=== PATIENT | female | born 1955 | race Caucasian/White ===

== ENCOUNTER 2017-02-05 20:31 | Inpatient (IN) | payer BC, OTHER ==
[~2017-02-05] VITALS: Ht 157.5 cm; Wt 63.4 kg
[~2017-02-05 20:31] MED LIST: NO CURRENT MEDS
[2017-02-05] MEDS ORDERED: ASPIRIN 324 MG CHEW PO STA (20:51)
[2017-02-05] MEDS ORDERED: NITROGLYCERIN 0.4 MG SL PER TAB CHARGE SL STA (20:51)
[2017-02-05 21:24] LABS: HEMATOCRIT 43.1 % (37-47); MEAN CELL VOLUME 92.9 fL (80-100); MEAN CORPUSCULAR HEMOGLOBIN 31.7 pg (25-34); MEAN CORPUSCULAR HGB CONC 34.1 g/dl (32-36); PLATELET COUNT 335 K/uL (130-400); RED BLOOD COUNT 4.64 M/uL (4.2-5.4); WHITE BLOOD COUNT 14.47 K/uL (4.8-10.8)
[2017-02-05 21:33] LABS: INR 0.9 (0.9-1.1); PARTIAL THROMBOPLASTIN RATIO 0.9
--- NOTE | 2017-02-05 21:43 | DIAGNOSTIC IMAGING REPORT ---
SINGLE VIEW CHEST CLINICAL HISTORY: Atypical chest pain. FINDINGS: An AP, portable, upright chest radiograph is compared to study dated 09/02/2016. The cardiomediastinal silhouette is unremarkable. The lungs and pleural spaces are clear. No pneumothorax is seen. The bony thorax is grossly intact. IMPRESSION: No active disease in the chest. Electronically signed by: Corbin Lamar M.D. 02/05/2017 9:42 PM Dictated Date/Time: 02/05/2017 9:42 PM
[2017-02-05 22:03] LABS: BUN/CREATININE RATIO 21.7 (10-20); CREATININE 0.76 mg/dl (0.60-1.20); POTASSIUM 3.7 mmol/L (3.5-5.1)
[2017-02-05] MEDS ORDERED: HEPARIN SOD 5000 UNIT/0.5 ML CARP ONE (22:12)
[2017-02-05] MEDS ORDERED: HEPARIN 25000 UNIT/500 ML D5W ONE (22:13)
--- NOTE | 2017-02-05 22:24 | EMERGENCY ROOM VISIT NOTE ---
History Report prepared by Deyanira: Dania Art Under the Supervision of: Dr. Joe Huitron M.D. First contact with patient: 20:45 Chief Complaint: CHEST PAIN Stated Complaint: CHEST PAIN, SHOULDER/NECK/JAW PAIN, LIGHTHEADED Nursing Triage Summary: new onset chest pain worsening tonight that radiates to right arm and right jaw. History of Present Illness The patient is a 61 year old female who presents to the Emergency Room with complaints of intermittent bilateral chest pain that started yesterday. The patient rates her discomfort as an 8-9/10 in severity. She describes the pain as heaviness. She is also experiencing bilateral shoulder pain. The patient is also experiencing fatigue and states that she slept for 3-4 hours this afternoon. She felt well when she woke up from her nap, but when she got up and moved around the pain came back. The patient experiences shortness of breath with the pain, but denies sweating and nausea. She is also experiencing "hot and cold flashes." The patient denies fevers, cough, rhinorrhea. The patient denies any significant medical problems. The patient also denies any family history of heart disease. Source of History: patient Onset: yesterday Position: chest (bilateral) Quality: other (heaviness) Timing: intermittent Associated Symptoms: + SOB, No cough, No fevers, No nausea Note: "hot and cold flashes,"no sweating, no rhinorrhea Review of Systems See HPI for pertinent positives & negatives. A total of 10 systems reviewed and were otherwise negative. Past Medical & Surgical Surgical Problems: (1) History of tubal ligation Family History Cancer Social History Smoking Status: Never Smoker Marital Status: Housing Status: lives with family Current/Historical Medications No Active Prescriptions or Reported Meds Allergies Coded Allergies: No Known Allergies (Verified , 10/27/16) Physical Exam Vital Signs Date Time Temp Pulse Resp B/P Pulse Ox O2 Delivery O2 Flow Rate FiO2 02/05/17 21:17 100 Room Air 02/05/17 20:46 58 02/05/17 20:44 100 Room Air 02/05/17 20:44 100 Room Air 02/05/17 20:44 58 16 164/90 100 Room Air 02/05/17 20:35 36.6 68 16 211/98 100 Room Air Physical Exam Constitutional: Vital signs reviewed and revealed hypertension. Eyes: Pupils are equal round reactive to light. Conjunctiva are noninjected. ENT: Pharynx is clear without erythema or exudate. Mucous membranes are moist. Neck supple without meningeal signs. Respiratory: Clear to auscultation bilaterally. Breath sounds are equal bilaterally. Cardiovascular: Regular rate and rhythm. No rubs or gallops. GI: Soft, nondistended and nontender. Bowel sounds are present. Musculoskeletal: No peripheral edema. No lower extremity tenderness. Integumentary: No cyanosis. Neurological: The patient is awake and alert. No focal deficits. Psychiatric: Normal affect. Medical Decision & Procedures ER Provider Diagnostic Interpretation: X-ray results as stated below per interpretation by me and the radiologist: SINGLE VIEW CHEST IMPRESSION: No active disease in the chest. Electronically signed by: Corbin Lamar M.D. 02/05/2017 9:42 PM Dictated Date/Time: 02/05/2017 9:42 PM Laboratory Results 02/05/17 21:13 Red Blood Count 4.64, Mean Corpuscular Volume 92.9, Mean Corpuscular Hemoglobin 31.7, Mean Corpuscular Hemoglobin Concent 34.1, Mean Platelet Volume 9.0 02/05/17 21:13 Test 02/05/17 21:13 02/05/17 21:24 White Blood Count 14.47 K/uL (4.8-10.8) Red Blood Count 4.64 M/uL (4.2-5.4) Hemoglobin 14.7 g/dL (12.0-16.0) Hematocrit 43.1 % (37-47) Mean Corpuscular Volume 92.9 fL (80-100) Mean Corpuscular Hemoglobin 31.7 pg (25-34) Mean Corpuscular Hemoglobin Concent 34.1 g/dl (32-36) Platelet Count 335 K/uL (130-400) Mean Platelet Volume 9.0 fL (7.4-10.4) RDW Standard Deviation 47.6 fL (36.4-46.3) RDW Coefficient of Variation 14.1 % (11.5-14.5) Nucleated RBC Absolute Count (auto) 0.06 K/uL (0-0) Nucleated Red Blood Cells % 0.4 % Prothrombin Time 10.0 SECONDS (9.0-12.0) Prothromb Time International Ratio 0.9 (0.9-1.1) Activated Partial Thromboplast Time 23.2 SECONDS (21.0-31.0) Partial Thromboplastin Ratio 0.9 Anion Gap 9.0 mmol/L (3-11) Est Creatinine Clear Calc Drug Dose 67.3 ml/min Estimated GFR () 97.4 Estimated GFR (Non- 84.1 BUN/Creatinine Ratio 21.7 (10-20) Calcium Level 9.0 mg/dl (8.5-10.1) Bedside Troponin I 0.190 ng/ml (0-0.045) Laboratory results as reviewed by me. Medications Administered Medications (Trade) Dose Ordered Sig/Forest Route Start Time Stop Time Status Last Admin Dose Admin Aspirin (Aspirin Chew) 324 mg NOW STAT PO 02/05/17 20:51 02/05/17 20:52 DC 02/05/17 20:56 324 MG Nitroglycerin (Nitrostat Tab) 0.4 mg Q5M STAT SL 02/05/17 20:51 02/05/17 20:52 DC 02/05/17 20:56 0.4 MG ECG Indication: chest pain Rate (beats per minute): 59 Rhythm: sinus bradycardia Findings: ST depression (Lateral), T-wave inversion (in aVL), no ectopy Comparison ECG Date: no prior available Change: Repeat EKG on 02/05/2017 showed a normal sinus rhythm, rate of 63, no ectopy, persistent ST depressions in the lateral leads, no ST elevations ED Course 2046: The patient was evaluated in room C7. A complete history and physical exam was performed. 2050: Ordered Nitroglycerin 0.4 mg SL, Aspirin 324 mg PO 2133: I reassessed the patient. Her chest pain is down to a 3 after receiving one nitro. 2138: The patient's nurse informed me that the patient's troponin is 0.19. 2148: I reassessed the patient and discussed the risks and benefits of heparin. The patient's pain is almost completely gone with the second nitro. 2149: Ordered Heparin Sodium/Dextrose 1 ea IV 8: I spoke with Dr. Rodriguez of [facility] Service. He did assess the patient and will start patient on nitro paste as she is stating that she has 1 out of 10 discomfort mostly in her shoulder. The heparin drip was started. Further care per Dr. Ko. Medical Decision This is a 61-year-old female presents with chest pain. Differential diagnosis includes unstable angina, AL, pleurisy, GERD, pneumonia. I did perform a limited focused review of portions of the patient's old chart on the electronic medical record. The patient has had no recent pertinent visits to this hospital. I did evaluate the patient as noted above. The patient is presenting with chest discomfort which she describes as a heaviness in the middle of her chest. She also complains of shortness of breath and weakness. She has no known cardiac history or family history of cardiac disease. IV access was established. The patient was placed on a continuous security monitor. I did order and personally review the patient's 12-lead EKG and chest x-ray as described above.Her EKG demonstrates ST depressions laterally. I did treat her with aspirin and nitroglycerin sublingual 2. Her chest pain was significantly improved with the Nitroglycerin. A second 12-lead EKG was obtained as described above. No significant change from the first one. I did order and review the patient's blood work as noted in the electronic medical record. Troponin is slightly elevated. I did recommend anticoagulation with IV heparin. I did discuss risks and benefits with the patient. I did start an IV heparin drip with bolus. I did discuss the case with Dr. Ko and the manager case. Consults Time Called: 2143 Consulting Physician: Dr. Rodriguez - [facility] [place] Returned Call: [phone] Impression Primary Impression: Acute coronary syndrome Additional Impression: Elevated troponin Critical Care I have personally spent 35 minutes of critical care time in the direct management of this patient. This includes bedside care, interpretation of diagnostic studies, and testing, discussion with consultants, patient, and family members, and other required patient management activities. This 35 minutes is in excess of all separately billable procedures. Scribe Attestation The scribe's documentation has been prepared under my direct and personally reviewed by me in its entirety. I confirm that the note above accurately reflects all work, treatment, procedures, and medical decision making performed by me. Departure Information Dispostion Being Evaluated By Hospitalist Prescriptions No Active Prescriptions or Reported Meds Referrals Jazz Garcia M.D. (PCP) Patient Instructions My [facility] Problem Qualifiers
[2017-02-05] MEDS ORDERED: NITROGLYCERIN OINT 2% 1GM PACKET ONE (22:25)
[2017-02-05 22:28] LABS: BASO % 0.2 %; BASO ABS # 0.03 K/uL (0-0.2); COMPLETE YES; EOS % 0.6 %; IG% 0.3 %; MONO % 4.1 %; NEUT % 47.8 %; SMUDGE CELLS PRESENT
[2017-02-05] MEDS ORDERED: MoRPHine SULFATE 2 MG/ML CARP IV PRN (22:30)
[2017-02-05] MEDS ORDERED: ACETAMINOPHEN 325 MG TAB PO PRN (22:30)
[2017-02-05] MEDS ORDERED: MAGNESIUM HYDROXIDE SUSP 30 ML UDC PO PRN (22:30)
[2017-02-05] MEDS ORDERED: ONDANSETRON INJ 2 MG/ML 2 ML VIAL IV PRN (22:30)
[2017-02-05] MEDS ORDERED: ALUMINUM/MAGNESIUM/SIMETH (MAALOX MAX) 30 ML UDC PO PRN (22:30)
[2017-02-05] MEDS ORDERED: NITROGLYCERIN 0.4 MG SL PER TAB CHARGE SL PRN (22:30)
--- NOTE | 2017-02-05 22:40 | History and Physical ---
History & Physical Date & Time of Service: Feb 05, 2017 at 22:26 Chief Complaint: Chest Pain, Shoulder/Neck/Jaw Pain, Lightheaded Primary Care Physician: Jazz Garcia M.D. History of Present Illness Source: patient, spouse This is a 61-year-old female who presents with chest pain which started 30 hours ago. She does not have a when she had a similar episode of chest pain, but was found to have a duodenal ulcer, she denies which she denies surgery for previous cardiac history. She reports yesterday afternoon while she was sitting down, at rest, she noticed a sudden onset, sharp pain to the left side of her chest which radiated up both sides of her jaw, and also to her back and both shoulders. She went to sleep and thought it became somewhat better She woke up overnight, and the pain had returned. She was slightly nauseated as well at that time. She tried to wait out the pain, but then this afternoon it was an 8 out of 10 in severity, so she came into the ED. She received Nitropaste and this brought it down to a 3 out of 10. Currently her pain is still about a 3. She is a nonsmoker, does not have diabetes, does not have a family history of cardiac disease. She does not take any regular medications. Her last hospital admission was 4 years ago was found to have a ruptured duodenal ulcer, did not have surgery for this. At that time she had presented with a similar chest pain but reports it was due to the ulcer. Past Medical/Surgical History PMHx: Ruptured duodenal ulcer PSHx: None Family History Cancer No cardiac family history, apart from her 95 yo mother who now has hypertension. Social History Smoking Status: Never Smoker Smokeless Tobacco Use: No Alcohol Use: socially Drug Use: none Marital Status: Housing status: lives with family Occupational Status: employed Immunizations History of Influenza Vaccine: No History of Tetanus Vaccine?: Yes History of Pneumococcal: No History of Hepatitis B Vaccine: No Allergies Coded Allergies: No Known Allergies (Verified , 10/27/16) Home Medications No Active Prescriptions or Reported Meds Review of Systems Constitutional: + weakness, No chills, No fever, No sweats, No weight loss Eyes: No eye pain, No worsening of vision ENT: No hearing loss, No nasal symptoms, No sore throat Respiratory: No cough, No dyspnea at rest, No dyspnea on exertion, No shortness of breath, No wheezing Cardiovascular: + problem reported Abdomen: + nausea, No constipation, No diarrhea, No pain, No vomiting Musculoskeletal: No calf pain, No joint pain, No muscle pain, No swelling Genitourinary - Female: No dysuria, No urinary frequency, No urinary urgency Neurologic: No memory loss, No paralysis, No weakness Psychiatric: No anhedonism, No anxiety, No depression symptoms Endocrine: No excessive thirst, No fatigue Hematologic / Lymphatic: No abnormal bleeding/bruising Integumentary: No bleeding, No itch, No rash Physical Exam Vital Signs Date Time Temp Pulse Resp B/P Pulse Ox O2 Delivery O2 Flow Rate FiO2 02/05/17 21:17 100 Room Air 02/05/17 20:46 58 02/05/17 20:44 100 Room Air 02/05/17 20:44 100 Room Air 02/05/17 20:44 58 16 164/90 100 Room Air 02/05/17 20:35 36.6 68 16 211/98 100 Room Air GENERAL: Awake, alert, well-appearing, in no acute distress HENT: Normocephalic, atraumatic. Oropharynx unremarkable. EYES: Normal conjunctiva. Sclera non-icteric. NECK: Supple. No nuchal rigidity. FROM. No JVD. RESPIRATORY: Clear to auscultation. No wheeze, crackles, rhonchi. CARDIAC: Regular rate, normal rhythm. No murmurs audible. Extremities warm and well perfused. Pulses equal. ABDOMEN: Soft, non-distended. No tenderness to palpation. No rebound or guarding. No masses. MUSCULOSKELETAL: Chest examination reveals no tenderness. The back is symmetrical on inspection without obvious abnormality. There is no CVA tenderness to palpation. No joint edema. LOWER EXTREMITIES: Calves are equal size bilaterally and non-tender. No edema. No discoloration. NEURO: Normal sensorium. No sensory or motor deficits noted. SKIN: No rash or jaundice noted. Diagnostics Laboratory Results Results Past 24 Hours Test 02/05/17 21:13 02/05/17 21:24 Range/Units White Blood Count 14.47 4.8-10.8 K/uL Red Blood Count 4.64 4.2-5.4 M/uL Hemoglobin 14.7 12.0-16.0 g/dL Hematocrit 43.1 37-47 % Mean Corpuscular Volume 92.9 80-100 fL Mean Corpuscular Hemoglobin 31.7 25-34 pg Mean Corpuscular Hemoglobin Concent 34.1 32-36 g/dl Platelet Count 335 130-400 K/uL Mean Platelet Volume 9.0 7.4-10.4 fL RDW Standard Deviation 47.6 36.4-46.3 fL RDW Coefficient of Variation 14.1 11.5-14.5 % Nucleated RBC Absolute Count (auto) 0.06 0-0 K/uL Nucleated Red Blood Cells % 0.4 % Prothrombin Time 10.0 9.0-12.0 SECONDS Prothromb Time International Ratio 0.9 0.9-1.1 Activated Partial Thromboplast Time 23.2 21.0-31.0 SECONDS Partial Thromboplastin Ratio 0.9 Sodium Level 140 136-145 mmol/L Potassium Level 3.7 3.5-5.1 mmol/L Chloride Level 104 98-107 mmol/L Carbon Dioxide Level 27 21-32 mmol/L Anion Gap 9.0 3-11 mmol/L Blood Urea Nitrogen 17 7-18 mg/dl Creatinine 0.76 0.60-1.20 mg/dl Est Creatinine Clear Calc Drug Dose 67.3 ml/min Estimated GFR () 97.4 Estimated GFR (Non- 84.1 BUN/Creatinine Ratio 21.7 10-20 Random Glucose 121 70-99 mg/dl Calcium Level 9.0 8.5-10.1 mg/dl Bedside Troponin I 0.190 0-0.045 ng/ml Diagnostic Radiology SINGLE VIEW CHEST CLINICAL HISTORY: Atypical chest pain. FINDINGS: An AP, portable, upright chest radiograph is compared to study dated 09/02/2016. The cardiomediastinal silhouette is unremarkable. The lungs and pleural spaces are clear. No pneumothorax is seen. The bony thorax is grossly intact. IMPRESSION: No active disease in the chest. EKG Initial EK bpm, lateral lead ST depression, no ST elevation, T wave inversions. Repeat EK bpm, persistent ST depression No prior EKG available Impression Assessment and Plan 61 year old female presenting with chest pain of about 30 hours duration, with EKG changes and mild troponin elevation. This is likely cardiac as she had improvement with Nitropaste. NSTEMI Trend cardiac enzymes q6h Nitropaste as needed, Morphine also available Continue heparin drip (started in ED) Repeat EKG if chest pain changes Continue aspirin 81mg daily Will start beta tashi once heart rate slightly improves Secondary prevention of cardiac disease Will check HbA1c and lipid profile Continue aspirin Code status: FULL Dispo: Telemetry VTE: Heparin drip VTE Prophylaxis VTE Risk Assessment Done? Y/N: Yes Risk Level: Low Resident Tracking Resident Involvement: Resident Care Provided Care Provided: [facility] Assessment and Plan Attending Addendum: I have physically seen and examined this patient, have directed their medical care, have supervised the medical residents activities, and agree with the H&P as noted above, with the following changes: NONE ex The patient is awake, well-developed and adequately nourished, alert and oriented 3, normocephalic and atraumatic, lying in bed and in no acute distress. HEENT--PERRL, EOMI, mucous membranes and oropharynx dry. Neck--supple, no JVD or bruits, thyroid normal, trachea midline, no adenopathy. Heart--normal S1 and S2, no extra beats, no murmurs, rubs or gallops. Lungs--clear bilaterally with good air movement, no respiratory distress, no accessory muscle use. Abdomen--normal bowel sounds and soft, nontender and nondistended, no hernias or masses, no organomegaly. Extremities--no cyanosis, clubbing or edema. There are good distal pulses b/l. Dermatologic--normal skin turgor, normal color, warm and dry, no abnormal lymph nodes, no rash. Neurologic--cranial nerves II through XII grossly intact, motor and sensory examination normal. Rheumatologic--normal range of motion, nontender, muscles and joints. Psychiatric--normal affect. Assessment and Plan: Acute coronary syndrome--the patient has reversible EKG changes suggesting ischemia. She will be admitted to the telemetry unit for serial cardiac enzymes , cardiac rhythm monitoring and a 2-D echocardiogram with Dopplers. She has already received aspirin, will be placed on Nitropaste 1 inch to the anterior chest wall every 6 hours, heparin drip per weight-based protocol, and normal saline with potassium chloride 20 mEq 100 mils per hour. Consult cardiology as patient will most probably need a cardiac catheterization. Lymphocytic leukocytosis--patient does not have any signs of active infection. We will order viral serologies to assess for possible myocarditis. We'll order a peripheral smear review by pathology. Would be concerned about the possibility of CLL. If smear is abnormal, would order a leukemia/lymphoma profile.
[2017-02-05 23:20] VITALS: BP 119/72; PULSE 69; TEMP 36.9; O2SAT 98
[2017-02-05 23:24] VITALS: BP 119/72; PULSE 69; TEMP 36.9; O2SAT 98; Ht 157.5 cm; Wt 63.4 kg
[2017-02-05] MEDS ORDERED: HEPARIN 25,000 UNIT/500ML D5W 500 ML IV PRN (23:45)
[2017-02-06] VITALS (24 sets, daily range): BP systolic 100–131; BP diastolic 61–81; PULSE 57–74; TEMP 36.5–37.5; O2SAT 93–98
[2017-02-06 00:53] LABS: CKMB/CK RATIO 2.6 (0-3.0)
[2017-02-06] MEDS: NITROGLYCERIN OINT 2% 1GM PACKET EXT SCH ×4 (01:06→17:29)
[2017-02-06] MEDS: NSS + 20MEQ KCL 1000ML 1,000 ML IV SCH ×3 (01:22→23:52)
[2017-02-06 04:35] LABS: HEMATOCRIT 35.7 % (37-47); MEAN CELL VOLUME 92.2 fL (80-100); MEAN CORPUSCULAR HEMOGLOBIN 31.8 pg (25-34); MEAN CORPUSCULAR HGB CONC 34.5 g/dl (32-36); PLATELET COUNT 285 K/uL (130-400); RED BLOOD COUNT 3.87 M/uL (4.2-5.4); WHITE BLOOD COUNT 15.29 K/uL (4.8-10.8)
[2017-02-06 04:52] LABS: BUN/CREATININE RATIO 23.1 (10-20); CALCIUM 7.7 mg/dl (8.5-10.1); CREATININE 0.58 mg/dl (0.60-1.20)
[2017-02-06 04:59] LABS: ALB/GLOB RATIO 0.9 (0.9-2); CHOLESTEROL/HDL RATIO 3.7; CKMB/CK RATIO 5.5 (0-3.0)
[2017-02-06 07:08] LABS: ESTIMATED AVERAGE GLUCOSE 131 mg/dl; HA1C FLAG Normal (Normal)
[2017-02-06] MEDS ORDERED: ASPIRIN 81 MG ECTAB PO SCH (09:00)
[2017-02-06 09:13] LABS: BASO % 0.2 %; BASO ABS # 0.03 K/uL (0-0.2); COMPLETE YES; EOS % 0.3 %; IG% 0.2 %; LYMPH % 52.8 %; LYMPH ABS # 8.07 K/uL (1.2-3.4); MONO % 4.7 %; NEUT % 41.8 %; SMUDGE CELLS PRESENT
--- NOTE | 2017-02-06 09:25 | ECHOCARDIOGRAM REPORT ---
*NOTICE TO RECEIVING CONSTITUTION PARTY AGENCY This information is strictly Confidential and protected under [place] law. [place] law prohibits you from making any further disclosure of this information unless further disclosure is expressly permitted by the written consent of the person to whom it pertains or is authorized by law. A general authorization for the release of medical or other information is not sufficient for this purpose. Hospital accepts no responsibility if the information is made available to any other person, INCLUDING THE PATIENT. Interpretation Summary * Name: CHANTEL ISRAEL Study Date: 02/06/2017 07:10 AM BP: 110/65 mmHg * Patient Location: C.2T\S\S239\S\2 HR: 58 * : 1955 (M/d/yyyy) Gender: Female Height: 62 in * Age: 61 yrs Ethnicity: CA Weight: 140 lb * Ordering Physician: Deneen Laboy * Referring Physician: Self, Referred * Performed By: Zoe Leon RDCS * * Reason For Study: NSTEMI * BSA: 1.6 m2 * History: NSTEMI * -- Conclusions -- * 1. Normal left ventricular size and systolic function. EF 55-60%. Mid inferolateral wall appears hypokinetic. No left ventricular hypertrophy. No significant diastolic dysfunction. * 2. Mild mitral regurgitation. * 3. Normal estimated right ventricular systolic pressure. * 4. No prior study available for comparison. Procedure Details * A complete two-dimensional transthoracic echocardiogram was performed (2D, M-mode, Doppler and color flow Doppler). Left Ventricle * Normal left ventricular size and systolic function. EF 55-60%. Mid inferolateral wall appears hypokinetic. No left ventricular hypertrophy. No significant diastolic dysfunction. Right Ventricle * The right ventricle is normal in size and function. * The right ventricular systolic function is normal as assessed by tricuspid annular plane systolic excursion (TAPSE) (normal >1.5 cm). Atria * The left atrial size is normal. * Right atrial size is normal. * There is no evidence of atrial septal defect, but resolution does not allow assessment for a patent foramen ovale. Mitral Valve * The mitral valve leaflets appear normal. There is no evidence of stenosis, fluttering, or prolapse. * There is no mitral valve stenosis. * There is mild mitral regurgitation. Tricuspid Valve * The tricuspid valve is normal in structure and function. * There is no tricuspid stenosis. * There is trace tricuspid regurgitation. Aortic Valve * The aortic valve is normal in structure and function. * No hemodynamically significant valvular aortic stenosis. * No aortic regurgitation is present. Pulmonic Valve * The pulmonary valve is inadequately visualized, but the Doppler data is adequate for interpretation. * There is no pulmonic valvular stenosis. * Trace pulmonic valvular regurgitation. Great Vessels * The aortic root is normal size. * Ascending aorta of normal dimension Pericardium/Pleural * There is no pericardial effusion. Great Vessels * Normal inferior vena cava size and collapsability with sniff indicates a normal right atrial pressure of 3 mmHg MMode 2D Measurements and Calculations IVSd 0.86 cm IVSs 1.2 cm LVIDd 4.1 cm LVIDs 2.7 cm LVPWd 0.92 cm LVPWs 1.3 cm IVS/LVPW 0.93 FS 35.4 % EDV(Teich) 76.2 ml ESV(Teich) 26.5 ml EF(Teich) 65.2 % EDV(cubed) 71.3 ml ESV(cubed) 19.2 ml EF(cubed) 73.0 % % IVS thick 40.1 % % LVPW thick 43.8 % LV mass(C)d 113.9 grams LV mass(C)dI 69.3 grams/m\S\2 LV mass(C)s 101.4 grams LV mass(C)sI 61.7 grams/m\S\2 SV(Teich) 49.7 ml SI(Teich) 30.3 ml/m\S\2 SV(cubed) 52.1 ml SI(cubed) 31.7 ml/m\S\2 Ao root diam 3.2 cm Ao root area 8.2 cm\S\2 LA dimension 3.3 cm asc Aorta Diam 2.6 cm LA/Ao 1.0 LVAd ap4 27.1 cm\S\2 LVLd ap4 7.4 cm EDV(MOD-sp4) 84.0 ml EDV(sp4-el) 84.8 ml LVAs ap4 16.6 cm\S\2 LVLs ap4 6.5 cm ESV(MOD-sp4) 35.4 ml ESV(sp4-el) 35.9 ml EF(MOD-sp4) 57.9 % EF(sp4-el) 57.6 % SV(MOD-sp4) 48.6 ml SI(MOD-sp4) 29.6 ml/m\S\2 SV(sp4-el) 48.9 ml SI(sp4-el) 29.7 ml/m\S\2 Doppler Measurements and Calculations MV E max radha 98.1 cm/sec MV A max radha 80.9 cm/sec MV E/A 1.2 MV dec time 0.22 sec Ao V2 max 123.4 cm/sec Ao max PG 6.1 mmHg Ao max PG (full) 3.7 mmHg LV V1 max PG 2.4 mmHg LV V1 max 77.1 cm/sec TV E max radha 49.1 cm/sec TR max radha 169.5 cm/sec RVSP(TR) 14.5 mmHg RAP systole 3.0 mmHg
--- NOTE | 2017-02-06 09:31 | Cardiology Consultation ---
Cardiology Consultation Date of Consultation: Feb 06, 2017. Attending Physician: Dr. Marjorie James Reason for Consultation: Elevated troponin Pt evaluation today including: conversation w/ patient, physical exam, chart review, lab review History of Present Illness Patient has had some twinges of chest pain and fatigue through out the last week. On Monday morning, she had been asymptomatic while doing her laundry in the morning. Later in the afternoon, some chest pain became prominent but did diminish with time, although it did not completely resolve. However, on Monday, while patient was sitting at rest, she noticed a sudden onset of sharp pain on the left side which spread across her chest, and radiated to her shoulders bilaterally and up both sides of her neck. She also felt pain at her mid back. The pain was worse upon lying supine and on deep inspiration. It was improved while sitting or standing up, but again worse during ambulation. It was not impacted by food intake. The pain was described as pressure and burning and was associated with nausea, but not emesis. Additionally the patient says she experienced some hot flashes with intermittent chills, but no diaphoresis. She described the pain as progressing to 8 out of 10 in severity over the duration of a couple of hours, before asking her to bring her to the ED. In the ED, she received aspirin and NGT x2 which brought the pain to 5 out of 10. Morphine was required to really help control to the pain as it brought it down to 1 out of 10, which is what she describes her chest pain as currently. The patient denies recent URI or flu symptoms, but states that her throat was sore on Monday. At baseline, patient is healthy and active. Able to ambulate independently and take stairs without exertional symptoms. Describes minimal orthostatic symptoms. No palpitations or syncope. No PND or orthopnea She is a nonsmoker, does not have diabetes, she does not take any regular medications. Her last hospital admission was 4 years ago when she had similar symptoms but was found to have a ruptured duodenal ulcer- she did not have surgery for this, but recovered with bowel rest with TPN through PICC line x 1 month. Family History Cancer As per patient family cardiac history significant only for HTN in mother, who also required stent in neck Social History Smoking Status: Never Smoker History of Alcohol Use: No Review of Systems Constitutional: No chills, No fever, No weakness Cardiac: + chest pain, No PND, No edema, No palpitations Abdomen: + pain, No GI bleeding, No nausea, No vomiting Female : No dysuria, No hematuria Heme: No abnormal bleeding/bruising Skin: No itch, No rash Allergies Coded Allergies: No Known Allergies (Verified , 10/27/16) Medications Current Inpatient Medications Medications (Trade) Dose Ordered Sig/Forest Route Start Time Stop Time Status Last Admin Dose Admin Acetaminophen (Tylenol Tab) 650 mg Q4H PRN PO 02/05/17 22:30 03/07/17 22:29 Al Hydrox/Mg Hydrox/Simethicone (Maalox Max Susp) 15 ml Q4H PRN PO 02/05/17 22:30 03/07/17 22:29 Magnesium Hydroxide (Milk Of Magnesia Susp) 30 ml Q12H PRN PO 02/05/17 22:30 03/07/17 22:29 Ondansetron HCl (Zofran Inj) 4 mg Q6H PRN IV 02/05/17 22:30 03/07/17 22:29 Nitroglycerin (Nitrostat Tab) 0.4 mg UD PRN SL 02/05/17 22:30 03/07/17 22:29 Nitroglycerin (Nitroglycerin 2% Oint) 1 inch Q6 EXT 02/06/17 00:00 03/08/17 00:00 02/06/17 06:02 1 INCH Morphine Sulfate (MoRPHine SULFATE INJ) 2 mg Q30M PRN IV 02/05/17 22:30 02/19/17 22:29 02/05/17 22:36 2 MG Aspirin 81 mg 81 mg QAM PO 02/06/17 09:00 03/08/17 08:59 02/06/17 07:59 81 MG Heparin Sodium/ Dextrose 500 ml @ 20 mls/hr Q24H PRN IV 02/05/17 23:45 03/07/17 23:44 02/05/17 23:57 20 MLS/HR Potassium Chloride/Sodium Chloride (Nss + 20meq KCl 1000ml) 1,000 ml @ 100 mls/hr Q10H IV 02/06/17 01:00 03/08/17 00:59 02/06/17 01:22 100 MLS/HR Physical Exam Vital Signs Past 12 Hours Date Time Temp Pulse Resp B/P Pulse Ox O2 Delivery O2 Flow Rate FiO2 02/06/17 07:30 36.6 58 20 110/65 97 Room Air 02/06/17 04:00 98 Room Air 02/06/17 02:39 36.6 57 16 104/63 97 Room Air 02/05/17 23:24 36.9 69 16 119/72 98 Room Air 02/05/17 23:20 36.9 69 14 119/72 98 Room Air 02/05/17 23:20 98 Room Air 02/05/17 22:55 58 16 99 02/05/17 22:39 58 16 127/67 99 Room Air 02/05/17 21:17 100 Room Air Constitutional: General Apperance: heathly-appearing, well-nourished, well-developed Level of Distress: NAD Head: normocephalic, atraumatic ENMT: pharynx normal Neck: supple, trachea midline Lungs: Respiratory effort: no dyspnea, good air movement Auscultation: breath sounds normal, CTA except as noted, no wheezing, no rales/crackles, no rhonchi Cardiovascular: Apical Impulse: not displaced Heart Auscultation: RRR, normal S1, normal S2 Peripheral Pulses: Bruits: none appreciated Carotid Pulse: normal on the left, normal on the right Radial Pulse: normal on the right Femoral Pulse: normal on the left, normal on the right Dorsalis Pedis Pulse: normal on the left, normal on the right Extremities: no cyanosis, no edema, no varicosities, no clubbing, no ulcers Neurologic: Cranial Nerves: grossly intact Sensation: grossly intact Data Laboratory Results: Last 24 Hours Test 02/05/17 21:13 02/05/17 21:20 02/05/17 21:24 02/06/17 04:25 White Blood Count 14.47 K/uL 15.29 K/uL Red Blood Count 4.64 M/uL 3.87 M/uL Hemoglobin 14.7 g/dL 12.3 g/dL Hematocrit 43.1 % 35.7 % Mean Corpuscular Volume 92.9 fL 92.2 fL Mean Corpuscular Hemoglobin 31.7 pg 31.8 pg Mean Corpuscular Hemoglobin Concent 34.1 g/dl 34.5 g/dl Platelet Count 335 K/uL 285 K/uL Mean Platelet Volume 9.0 fL 9.0 fL Neutrophils (%) (Auto) 47.8 % Lymphocytes (%) (Auto) 47.0 % Monocytes (%) (Auto) 4.1 % Eosinophils (%) (Auto) 0.6 % Basophils (%) (Auto) 0.2 % Neutrophils # (Auto) 6.92 K/uL Lymphocytes # (Auto) 6.80 K/uL Monocytes # (Auto) 0.60 K/uL Eosinophils # (Auto) 0.08 K/uL Basophils # (Auto) 0.03 K/uL RDW Standard Deviation 47.6 fL 47.3 fL RDW Coefficient of Variation 14.1 % 14.2 % Immature Granulocyte % (Auto) 0.3 % Immature Granulocyte # (Auto) 0.04 K/uL Nucleated RBC Absolute Count (auto) 0.06 K/uL Nucleated Red Blood Cells % 0.4 % Smudge Cells PRESENT Prothrombin Time 10.0 SECONDS Prothromb Time International Ratio 0.9 Activated Partial Thromboplast Time 23.2 SECONDS 53.0 SECONDS Partial Thromboplastin Ratio 0.9 2.0 Sodium Level 140 mmol/L 143 mmol/L Potassium Level 3.7 mmol/L 4.0 mmol/L Chloride Level 104 mmol/L 110 mmol/L Carbon Dioxide Level 27 mmol/L 24 mmol/L Anion Gap 9.0 mmol/L 9.0 mmol/L Blood Urea Nitrogen 17 mg/dl 13 mg/dl Creatinine 0.76 mg/dl 0.58 mg/dl Est Creatinine Clear Calc Drug Dose 67.3 ml/min 87.6 ml/min Estimated GFR () 97.4 114.5 Estimated GFR (Non- 84.1 98.8 BUN/Creatinine Ratio 21.7 23.1 Random Glucose 121 mg/dl 111 mg/dl Estimated Average Glucose 131 mg/dl Hemoglobin A1c 6.2 % Calcium Level 9.0 mg/dl 7.7 mg/dl Total Creatine Kinase 117 U/L 132 U/L Creatine Kinase MB 3.1 ng/ml 7.3 ng/ml Creatine Kinase MB Ratio 2.6 5.5 Troponin I 0.320 ng/ml 1.090 ng/ml Bedside Troponin I 0.190 ng/ml Total Bilirubin 0.3 mg/dl Aspartate Amino Transf (AST/SGOT) 23 U/L Alanine Aminotransferase (ALT/SGPT) 27 U/L Alkaline Phosphatase 57 U/L Total Protein 6.2 gm/dl Albumin 3.0 gm/dl Globulin 3.2 gm/dl Albumin/Globulin Ratio 0.9 Triglycerides Level 127 mg/dl Cholesterol Level 213 mg/dl HDL Cholesterol 58 mg/dl LDL Cholesterol, Calculated 130 mg/dl VLDL Cholesterol, Calculated 25 mg/dl Cholesterol/HDL Ratio 3.7 Imaging: EKG: Telemetry reviewed: Assessment & Plan 61 year old female with no significant cardiac risk factors presents to hospital with fluctuating chest pain for over 24 hours and elevated troponin. EKG shows 1mm ST depression in anterolateral leads and hypokinetic inferolateral wall motion on echo. Concern for NSTEMI vs. melissa/pericarditis. Patient consented for cardiac catheterization to assess for coronary vessel occlusion. The patient was seen and examined by me in the presence of . Assessment and plan and recommendations made in conjunction with . Admitted with prolonged episode of chest pain. Radiation to both shoulders, neck, and midscapular region. Improvement with sublingual nitroglycerin. No prior history of heart disease. No history of diabetes mellitus, hypertension, cigarette smoking, or family history of premature coronary artery disease. She has a good HDL. However, LDL is elevated. She was admitted with prolonged chest discomfort. Troponin I elevated. Electrocardiogram with inferior and anterolateral ST segment depressions suggestive of ischemia. This when she had a 4 beat run of nonsustained ventricular tachycardia. History, medications , family history, social history, allergies, and review of systems as above. Her exam by me was normal. No jugular venous distention. Normal carotid pulses. No carotid bruits. Lungs clear to auscultation. Heart with regular rate and rhythm. S1-S2 normal. No S3 or S4. No murmur rub. Abdomen soft. Nontender. No palpable masses organomegaly. No bruits. Extremities: No pretibial edema. No cyanosis or clubbing. Distal pulses all extremities palpable. Because of her chest discomfort very consistent with myocardial ischemia, abnormal electrocardiogram, an abnormal echocardiogram cardiac catheterization was recommended to the patient. The procedure, risks, benefits, alternatives of cardiac catheterization and percutaneous coronary intervention were extensively discussed with the patient. She consented to have the procedure performed. Thereafter she was brought to the cardiac catheterization lab. Arterial access was 1st attempted in the right radial artery and then the right ulnar artery. These attempts were unsuccessful. A 6 Faroese sheath was inserted in the right femoral artery. Coronary angiography revealed no significant coronary calcifications. Right dominant circulation. The major left circumflex marginal branch had a 95-99% subtotal proximal stenosis. KATRINA 3 flow in the vessel. Mild - atherosclerotic disease in the right coronary artery and mild- to-moderate disease in the LAD. LV angiography with inferior hypokinesis in the right anterior oblique projection. Posterolateral hypokinesis in the RICKY projection. PTCA was then performed to the left circumflex marginal stenosis. This was with a 2.5 x 10 mm balloon. A 3 x 18 mm resolute drug-eluting stent was then deployed in the proximal segment of the marginal. Two balloon inflations performed. Second balloon inflation up to rated burst pressure. Residual stenosis 0-10%. No dissection, thrombus, perforation, or distal embolic event. KATRINA 3 flow in the vessel following intervention. FFR was then performed of the LAD. Adenosine was administered intravenously at 180 micrograms/kilogram per minute. Was administered for 2 minutes. The FFR was 0.87. This is not physiologically significant. Hemostasis was then obtained the right femoral catheterization site with deployment of a 6 Faroese StarClose vascular closure device. At the completion of procedure the patient was without complaints of any chest pain. No groin pain. She was hemodynamically stable. No evidence of any coronary, cardiac, or vascular complications. At the completion of procedure she was given 600 mg of oral clopidogrel. Plan recommendations: 1. Intravenous Integrilin for 18 hours. 2. Repeat electrocardiogram and cardiac enzymes later today and in a.m.. 3. Aspirin and clopidogrel for 1 year. Aspirin therapy indefinitely. 4. Will start low-dose beta-tashi, low-dose LAYA inhibitor therapy. Titrate upwards as tolerated by blood pressure and heart rate. 5. Atorvastatin 80 mg today and then daily. 6. Post PCI CBC and metabolic profile. Addendum: I was notified on the evening of February 06 that the patient had some oozing of blood in her right femoral catheterization site. The nursing staff had applied pressure. When I examined the patient there is no evidence of any active bleeding. Her new dressing was dry. No evidence of bleeding. She had no evidence of hematoma or swelling at the right femoral catheterization site. No bruit over the right femoral artery. Distal pulses strongly palpable. Suspect that the patient had bleeding from the tract made from the skin to the femoral artery itself. Do not suspect that there was actual arterial bleeding from the femoral artery.
[2017-02-06] MEDS ORDERED: NiCARDipine HCL INJ 2.5 MG/ML 10 ML AMP ONE (10:25)
[2017-02-06] MEDS ORDERED: HEPARIN SOD (PORCINE) 1000 UNIT/ML 10 ML VIAL ONE (10:25)
[2017-02-06] MEDS ORDERED: MIDAZOLAM HCL 1 MG/ML 2ML VIAL ONE ×2 (10:25→12:14)
[2017-02-06] MEDS ORDERED: NITROGLYCERIN/D5W 100MCG/ML 20ML SYR ONE (10:26)
[2017-02-06] MEDS ORDERED: FENTANYL CITRATE INJ 50 MCG/1 ML 2 ML VIAL ONE ×2 (10:26→13:43)
--- NOTE | 2017-02-06 10:49 | Procedure Note ---
Pre-Mod Sedation Assessment General Date of Moderate Sedation: Feb 06, 2017. Vital Signs: Vital Signs Past 12 Hours Date Time Temp Pulse Resp B/P Pulse Ox O2 Delivery O2 Flow Rate FiO2 02/06/17 07:30 36.6 58 20 110/65 97 Room Air 02/06/17 04:00 98 Room Air 02/06/17 02:39 36.6 57 16 104/63 97 Room Air 02/05/17 23:24 36.9 69 16 119/72 98 Room Air 02/05/17 23:20 36.9 69 14 119/72 98 Room Air 02/05/17 23:20 98 Room Air 02/05/17 22:55 58 16 99 Review Cardiovascular: regular rate, rhythm, no edema, no gallop, no JVD, no murmur, normal peripheral pulses Abdomen: normal bowel sounds, non tender, soft Lungs: lungs clear Pre-Sedation Airway Assessment Oral Cavity: Dentures Able to Visualize Vocal Cords: No Short Thick Neck: No Hx of Sleep Apnea: No Smoking Status: Never Smoker Mallampati Classification: Class III ASA Classification: Class II Procedure Planning Contraindications-for Mod Sed: None Yes Notes The planned sedation has been discussed with the patient and consent obtained. I have identified the patient, determined the appropriateness of sedation and have assessed the patient immediately prior to the procedure. All medicine(s) and interventions are by my order.
[2017-02-06 11:02] LABS: CKMB/CK RATIO 6.5 (0-3.0)
[2017-02-06] MEDS ORDERED: ADENOSINE IV SOLN 3 MG/ML 20 ML VIAL ONE ×2 (13:08→13:31)
[2017-02-06] MEDS ORDERED: LIDOCAINE/EPINEPHRINE 1% 20 ML VIAL ONE (13:43)
[2017-02-06] MEDS ORDERED: CLOPIDOGREL BISULFATE 300 MG TAB PO ONE (13:49)
[2017-02-06] MEDS ORDERED: LORAZEPAM INJ 0.5 MG in SYRINGE 0 ML IV PRN (14:15)
[2017-02-06] MEDS ORDERED: LORAZEPAM 0.5 MG TAB PO PRN (14:15)
[2017-02-06] MEDS ORDERED: EPTIFIBATIDE BOLUS / DRIP IV ONE (14:15)
[2017-02-06] MEDS ORDERED: ONDANSETRON INJ 2 MG/ML 2 ML VIAL IV PRN (14:15)
[2017-02-06] MEDS ORDERED: MoRPHine SULFATE 2 MG/ML CARP IV PRN (14:15)
[2017-02-06] MEDS ORDERED: ATROPINE SULFATE 0.1 MG/ML 5ML SYR IV PRN (14:15)
[2017-02-06] MEDS ORDERED: ACETAMINOPHEN 325 MG TAB PO PRN (14:15)
--- NOTE | 2017-02-06 14:28 | Procedure Note ---
Post-Mod Sedation Assessment General Date of Moderate Sedation Feb 06, 2017. Vital Signs: Vital Signs Past 12 Hours Date Time Temp Pulse Resp B/P Pulse Ox O2 Delivery O2 Flow Rate FiO2 02/06/17 14:07 66 18 110/60 95 Room Air 02/06/17 14:02 62 18 103/66 95 Nasal Cannula 2 02/06/17 13:57 64 18 127/71 94 Nasal Cannula 2 02/06/17 13:52 65 18 127/67 93 Nasal Cannula 2 02/06/17 08:00 Room Air 02/06/17 07:30 36.6 58 20 110/65 97 Room Air 02/06/17 04:00 98 Room Air 02/06/17 02:39 36.6 57 16 104/63 97 Room Air Review - Discharge Criteria Vital Signs Stable: Yes Alert/Oriented/Conversant: Yes Returned to Baseline Mental St: Yes Nausea Absent/Minimal: Yes Pain/Discomfort/Absent/Minimal: Yes Normal/Baseline Respirations: Yes Active Bleeding?: No Pt Received D/C Instructions: N/A Prescriptions Given: None Specific Proced. D/C Criteria Distal Pulses Present (Cardiac: Yes Groin site assessed-Card Cath: Yes Voided Prior To Discharge: Yes Discharged Patients Adult Escort/Transportation: N/A
--- NOTE | 2017-02-06 14:29 | Family Medicine Progress Note ---
Progress Note Date of Service Feb 06, 2017. 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 She described the pain as sudden sharp pain on the side radiating to her jaw and both shoulders which was also accompanied by nausea. The pain was rated as 8 on 10 and better when she was sitting up. denies any shortness of breath or palpitations denied any coughing, fevers but had some chills. Today she denies any pain, shortness of breath, palpitations or dizziness. Constitutional: + chills, No fever Eyes: No worsening of vision ENT: No hearing loss Respiratory: No cough, No shortness of breath, No sputum Cardiovascular: No chest pain Abdomen: No nausea, No pain, No vomiting Female : No dysuria Neurologic: No memory loss Psychiatric: No depression symptoms Medications Current Inpatient Medications Medications (Trade) Dose Ordered Sig/Forest Route Start Time Stop Time Status Last Admin Dose Admin Acetaminophen (Tylenol Tab) 650 mg Q4H PRN PO 02/05/17 22:30 03/07/17 22:29 Al Hydrox/Mg Hydrox/Simethicone (Maalox Max Susp) 15 ml Q4H PRN PO 02/05/17 22:30 03/07/17 22:29 Magnesium Hydroxide (Milk Of Magnesia Susp) 30 ml Q12H PRN PO 02/05/17 22:30 03/07/17 22:29 Ondansetron HCl (Zofran Inj) 4 mg Q6H PRN IV 02/05/17 22:30 03/07/17 22:29 Nitroglycerin (Nitrostat Tab) 0.4 mg UD PRN SL 02/05/17 22:30 03/07/17 22:29 Nitroglycerin (Nitroglycerin 2% Oint) 1 inch Q6 EXT 02/06/17 00:00 03/08/17 00:00 02/06/17 06:02 1 INCH Morphine Sulfate (MoRPHine SULFATE INJ) 2 mg Q30M PRN IV 02/05/17 22:30 02/19/17 22:29 02/05/17 22:36 2 MG Aspirin 81 mg 81 mg QAM PO 02/06/17 09:00 03/08/17 08:59 02/06/17 07:59 81 MG Heparin Sodium/ Dextrose 500 ml @ 20 mls/hr Q24H PRN IV 02/05/17 23:45 03/07/17 23:44 02/05/17 23:57 20 MLS/HR Potassium Chloride/Sodium Chloride (Nss + 20meq KCl 1000ml) 1,000 ml @ 100 mls/hr Q10H IV 02/06/17 01:00 03/08/17 00:59 02/06/17 01:22 100 MLS/HR Objective Vital Signs Date Time Temp Pulse Resp B/P Pulse Ox O2 Delivery O2 Flow Rate FiO2 02/06/17 14:07 66 18 110/60 95 Room Air 02/06/17 14:02 62 18 103/66 95 Nasal Cannula 2 02/06/17 13:57 64 18 127/71 94 Nasal Cannula 2 02/06/17 13:52 65 18 127/67 93 Nasal Cannula 2 02/06/17 08:00 Room Air 02/06/17 07:30 36.6 58 20 110/65 97 Room Air 02/06/17 04:00 98 Room Air 02/06/17 02:39 36.6 57 16 104/63 97 Room Air 02/05/17 23:24 36.9 69 16 119/72 98 Room Air 02/05/17 23:20 36.9 69 14 119/72 98 Room Air 02/05/17 23:20 98 Room Air 02/05/17 22:55 58 16 99 02/05/17 22:39 58 16 127/67 99 Room Air 02/05/17 21:17 100 Room Air 02/05/17 20:46 58 02/05/17 20:44 100 Room Air 02/05/17 20:44 100 Room Air 02/05/17 20:44 58 16 164/90 100 Room Air 02/05/17 20:35 36.6 68 16 211/98 100 Room Air Physical Exam General Appearance: WD/WN, no apparent distress Eyes: normal inspection ENT: normal ENT inspection, hearing grossly normal Neck: supple Respiratory/Chest: chest non-tender, lungs clear, normal breath sounds, no respiratory distress, no accessory muscle use Cardiovascular: regular rate, rhythm Abdomen: normal bowel sounds, non tender, soft Extremities: normal range of motion, non-tender, normal inspection Neurologic/Psychiatric: alert, normal mood/affect, oriented x 3 Skin: normal color Laboratory Results 02/06/17 04:25 Red Blood Count 3.87, Mean Corpuscular Volume 92.2, Mean Corpuscular Hemoglobin 31.8, Mean Corpuscular Hemoglobin Concent 34.5, Mean Platelet Volume 9.0, Neutrophils (%) (Auto) 41.8, Lymphocytes (%) (Auto) 52.8, Monocytes (%) (Auto) 4.7, Eosinophils (%) (Auto) 0.3, Basophils (%) (Auto) 0.2, Neutrophils # (Auto) 6.40, Lymphocytes # (Auto) 8.07, Monocytes # (Auto) 0.72, Eosinophils # (Auto) 0.04, Basophils # (Auto) 0.03 02/06/17 04:25 Test 02/05/17 21:13 02/05/17 21:24 02/06/17 04:25 02/06/17 10:23 Nucleated RBC Absolute Count (auto) 0.06 K/uL (0-0) Nucleated Red Blood Cells % 0.4 % Peripheral Blood Smear Path Consult Prothrombin Time 10.0 SECONDS (9.0-12.0) Prothromb Time International Ratio 0.9 (0.9-1.1) Estimated Average Glucose 131 mg/dl Hemoglobin A1c 6.2 % (4.5-5.6) Bedside Troponin I 0.190 ng/ml (0-0.045) White Blood Count 15.29 K/uL (4.8-10.8) Red Blood Count 3.87 M/uL (4.2-5.4) Hemoglobin 12.3 g/dL (12.0-16.0) Hematocrit 35.7 % (37-47) Mean Corpuscular Volume 92.2 fL (80-100) Mean Corpuscular Hemoglobin 31.8 pg (25-34) Mean Corpuscular Hemoglobin Concent 34.5 g/dl (32-36) Platelet Count 285 K/uL (130-400) Mean Platelet Volume 9.0 fL (7.4-10.4) Neutrophils (%) (Auto) 41.8 % Lymphocytes (%) (Auto) 52.8 % Monocytes (%) (Auto) 4.7 % Eosinophils (%) (Auto) 0.3 % Basophils (%) (Auto) 0.2 % Neutrophils # (Auto) 6.40 K/uL (1.4-6.5) Lymphocytes # (Auto) 8.07 K/uL (1.2-3.4) Monocytes # (Auto) 0.72 K/uL (0.11-0.59) Eosinophils # (Auto) 0.04 K/uL (0-0.5) Basophils # (Auto) 0.03 K/uL (0-0.2) RDW Standard Deviation 47.3 fL (36.4-46.3) RDW Coefficient of Variation 14.2 % (11.5-14.5) Immature Granulocyte % (Auto) 0.2 % Immature Granulocyte # (Auto) 0.03 K/uL (0.00-0.02) Smudge Cells PRESENT Activated Partial Thromboplast Time 53.0 SECONDS (21.0-31.0) Partial Thromboplastin Ratio 2.0 Anion Gap 9.0 mmol/L (3-11) Est Creatinine Clear Calc Drug Dose 87.6 ml/min Estimated GFR () 114.5 Estimated GFR (Non- 98.8 BUN/Creatinine Ratio 23.1 (10-20) Calcium Level 7.7 mg/dl (8.5-10.1) Total Bilirubin 0.3 mg/dl (0.2-1) Aspartate Amino Transf (AST/SGOT) 23 U/L (15-37) Alanine Aminotransferase (ALT/SGPT) 27 U/L (12-78) Alkaline Phosphatase 57 U/L (45-117) Total Protein 6.2 gm/dl (6.4-8.2) Albumin 3.0 gm/dl (3.4-5.0) Globulin 3.2 gm/dl (2.5-4.0) Albumin/Globulin Ratio 0.9 (0.9-2) Triglycerides Level 127 mg/dl (0-150) Cholesterol Level 213 mg/dl (0-200) HDL Cholesterol 58 mg/dl LDL Cholesterol, Calculated 130 mg/dl VLDL Cholesterol, Calculated 25 mg/dl Cholesterol/HDL Ratio 3.7 Total Creatine Kinase 179 U/L (26-192) Creatine Kinase MB 11.6 ng/ml (0.5-3.6) Creatine Kinase MB Ratio 6.5 (0-3.0) Troponin I 1.510 ng/ml (0-0.045) Test 02/06/17 13:23 Kaolin Activated Coagulation Time 265 SECONDS (94-140) Assessment and Plan 61-year-old female with with a past medical history of CLL which is monitored by oncology 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 She had persistent ST depressions in the lateral leads and an elevated troponin. NSTEMI with ST wave depressions in lateral leads - EKG this morning:Sinus bradycardia Nonspecific ST and T wave abnormality - Echo 02/06: * 1. Normal left ventricular size and systolic function. EF 55-60%. Mid inferolateral wall appears hypokinetic. No left ventricular hypertrophy. No significant diastolic dysfunction. * 2. Mild mitral regurgitation. * 3. Normal estimated right ventricular systolic pressure. * 4. No prior study available for comparison. - Nitropaste as needed, Morphine also available - Continue heparin drip - Continue aspirin 81mg daily - Metoprolol 12.5 mg BID - Scheduled for cardiac cath today Lymphocytosis: - Viral panel sent for concern of myocarditis but patient has a h/o CLL which is stable and is monitored by oncology Full code Telemetry Dvt prophylaxis: Heparin drip Reviewed: Pt Seen/Exam by Me History Pt is doing well s/p cath. No further chest pain, jaw pain, or lightheadedness. She hasn't had anything to eat yet, but is awaiting a lunch tray. No SOB. Agree with HPI/ROS as noted above. General Appearance: WD/WN, no apparent distress Respiratory: normal breath sounds, no respiratory distress Cardiovascular: normal peripheral pulses, regular rate, rhythm Gastrointestinal: non tender, soft Extremities: non-tender, no pedal edema Neurologic/Psychiatric: alert, oriented x 3 Skin Characteristics: normal color, warm/dry Assessment/Plan Resident Physician Supervision Note: I discussed the case with the resident and agree with the findings and plan as documented in the note. Any exceptions or clarifications are listed here: Documented By: Viviana Osullivan Agree with plan as outlined above s/p cath, stents placed.
--- NOTE | 2017-02-06 14:49 | [facility] Post Operative Brief Note ---
Preliminary Procedure Note Procedure Date Feb 06, 2017. Pre-Procedure Diagnosis Non STEMI AUC Score 8 Post-Procedure Diagnosis Severe CAD (Subtotal proximal left circumflex marginal), Successful PCI (3 X 18 mm Resolute ALBERTO in marginal.), Normal LV Systolic Function (Normal overall LV systolic function. Inferior and posterolateral localized hypokinesis.), Elevated Intracardiac Pressures (LVEDP 14 mm Hg) Procedure(s) Performed Coronary Angiography, Left Heart Cath, LV Angiography, PTCA, Drug Eluting Stent , Fractional Flow [place] (FFR of LAD) Er Medical Technician Dr. James Shingles Roofer Helper(s) Marjorie Odom, RTR Estimated Blood Loss 40 ml Medication(s) Clopidogrel (600 mg post PCI), Fentanyl, Heparin, Integrilin, Nicardipine ( intra coronary), Versed, Lidocaine 1%, Adenosine Preliminary Findings Cath site : 6 Fr sheath right femoral artery. Hemostasis: 6 Fr Starclose device. Complications: none. Preliminary findings: Right dominant circulation. 20% ostial, 20%,30% early mid LAD, diffuse 30-50% latter mid LAD, 95-99% proximal left circumflex marginal ( KATRINA 3 flow) , 20% proximal RCA,LVEF 60%.PTCA ( 2.5 X10 mm balloon) and then ALBERTO (3 X 18 mm Resolute) to marginal. Residual stenosis 0-10%. KATRINA 3 flow. No dissection,thrombus,perforation,or distal embolic event. Plan: IV Integrilin for 18 hours. Aspirin/clopidogrel , atorvastatin, lisinopril , metoprolol. Refer to cardiac rehab. Post PCI CBC, PRP, troponin, ECG. Recommendations Medical therapy and/or Counseling, PCI without planned CABG Specimens None Fluids (cc crystalloids) 350 Drains none Anesthesia IV versed,fenatnyl. Lidocaine 1% for local Procedural Complication(s) None Disposition PCU
[2017-02-06 14:56] LABS: HEMATOCRIT 37.7 % (37-47); MEAN CELL VOLUME 92.2 fL (80-100); MEAN CORPUSCULAR HEMOGLOBIN 31.3 pg (25-34); MEAN PLATELET VOLUME 8.6 fL (7.4-10.4); PLATELET COUNT 283 K/uL (130-400); RED BLOOD COUNT 4.09 M/uL (4.2-5.4); WHITE BLOOD COUNT 16.57 K/uL (4.8-10.8)
[2017-02-06] MEDS: EPTIFIBATIDE INJ 75 MG PREMIXED IV SCH ×2 (14:58→20:52)
[2017-02-06] MEDS ORDERED: LORAZEPAM 2 MG/ML 1 ML VIAL IV PRN ×2 (15:00)
[2017-02-06] MEDS ORDERED: ATORVASTATIN 40 MG TAB PO ONE (15:00)
[2017-02-06 15:21] LABS: BUN/CREATININE RATIO 13.4 (10-20); CALCIUM 8.4 mg/dl (8.5-10.1); CREATININE 0.64 mg/dl (0.60-1.20); POTASSIUM 3.9 mmol/L (3.5-5.1)
[2017-02-06 15:54] LABS: BASO % 0.1 %; BASO ABS # 0.02 K/uL (0-0.2); COMPLETE YES; EOS % 0.4 %; IG% 0.2 %; LYMPH % 45.7 %; LYMPH ABS # 7.57 K/uL (1.2-3.4); MONO % 3.6 %; SMUDGE CELLS PRESENT
[2017-02-06 17:24] LABS: CKMB/CK RATIO 6.9 (0-3.0)
[2017-02-06] MEDS: METOPROLOL TARTRATE 25 MG TAB PO SCH (20:53)
[2017-02-06 23:38] LABS: CKMB/CK RATIO 5.3 (0-3.0)
[2017-02-07 03:07] VITALS: BP 102/60; PULSE 74; TEMP 37.1; O2SAT 97
[2017-02-07 04:00] VITALS: O2SAT 97
[2017-02-07 06:08] LABS: HEMATOCRIT 34.6 % (37-47); MEAN CELL VOLUME 90.6 fL (80-100); MEAN CORPUSCULAR HEMOGLOBIN 30.6 pg (25-34); MEAN CORPUSCULAR HGB CONC 33.8 g/dl (32-36); MEAN PLATELET VOLUME 8.5 fL (7.4-10.4); PLATELET COUNT 254 K/uL (130-400); RED BLOOD COUNT 3.82 M/uL (4.2-5.4); WHITE BLOOD COUNT 13.42 K/uL (4.8-10.8)
[2017-02-07 06:45] LABS: BUN/CREATININE RATIO 12.2 (10-20); CALCIUM 8.2 mg/dl (8.5-10.1); CREATININE 0.62 mg/dl (0.60-1.20); POTASSIUM 3.7 mmol/L (3.5-5.1)
[2017-02-07 06:51] LABS: ALB/GLOB RATIO 0.9 (0.9-2)
[2017-02-07] MEDS ORDERED: Integrelin infusion --> STOP ORDER ONE (07:00)
[2017-02-07 08:13] VITALS: BP 101/73; PULSE 81; TEMP 37; O2SAT 95
[2017-02-07 08:15] LABS: BASO % 0.1 %; BASO ABS # 0.02 K/uL (0-0.2); COMPLETE YES; EOS % 0.3 %; IG% 0.2 %; LYMPH % 45.5 %; LYMPH ABS # 6.11 K/uL (1.2-3.4); MONO % 7.2 %; NEUT % 46.7 %; SMUDGE CELLS PRESENT
[2017-02-07] MEDS: NSS + 20MEQ KCL 1000ML 1,000 ML IV SCH (08:55)
[2017-02-07] MEDS: METOPROLOL TARTRATE 25 MG TAB PO SCH (08:56)
[2017-02-07] MEDS ORDERED: ATORVASTATIN 40 MG TAB PO SCH (09:00)
[2017-02-07] MEDS ORDERED: ASPIRIN 81 MG ECTAB PO SCH (09:00)
[2017-02-07] MEDS ORDERED: LISINOPRIL 2.5 MG TAB PO SCH (09:00)
[2017-02-07] MEDS ORDERED: CLOPIDOGREL BISULFATE 75 MG TAB PO SCH (09:00)
[2017-02-07 11:39] VITALS: BP 97/65; PULSE 63; TEMP 36.7; O2SAT 97
--- NOTE | 2017-02-07 12:13 | Discharge Instructions ---
Discharge Instructions Date of Service Feb 07, 2017. Admission Reason for Admission: Chest Pain, Elevated Troponin Discharge Discharge Diagnosis / Problem: NSTEMI Discharge Goals Goal(s): Decrease discomfort, Improve function Activity Recommendations Activity Limitations: resume your previous activity . Instructions / Follow-Up Instructions / Follow-Up You were admitted with left sided chest pain associated with nausea and Had some EKG changes in the ER suggestive of a NSTEMI( heart attack) You were seen by cardiology and a single drug eluting stent was placed in one of your blood vessels( left circumflex marginal) You are recommended to use the following medications: - Aspirin 81 mg daily indefinitely - Plavix 75 mg for 1 year - Metoprolol 12.5 mg twice daily - Lisinopril 2.5 mg once daily - Atorvastatin( Lipitor ) 80 mg daily - you may use nitroglycerin as needed if you develop chest pain - Recommend healthy lifestyle with balanced meals and exercise Please follow up with your family doctor in 1 week Please follow up with cardiology in 1-2 weeks You will also be referred for cardiac rehabilitation Home Care: * Take your medications exactly as directed. Don't skip doses. * Remember that recovery after a heart attack takes time. Plan to rest for at lease 4-8 weeks while you recover. Then return to normal activity when your doctor says it's okay. * Ask your doctor about joining a heart rehabilitation program. * Tell your doctor if you are feeling depressed. Feelings of sadness are common after a heart attack, but it is important that you speak to someone if you are feeling overwhelmed by these feelings. * If you are having chest pain, call 911 for an ambulance. Do NOT drive yourself to the hospital. * Ask your family members to learn CPR. * Learn to take your own blood pressure and pulse. Keep a record of your results. Ask your doctor when you should seek emergency medical attention. He or she will tell you which blood pressure reading is dangerous. Lifestyle Changes: * Maintain a healthy weight. Get help to lose any extra pounds. * Cut back on salt. * Limit canned, dried, packaged, and fast foods. * Don't add salt to your food. * Season foods with herbs instead of salt when you cook. * Break the smoking habit. Enroll in a stop-smoking program to improve your chances of success. * Limit fatty foods. * Check your lipid levels regularly. (Your doctor can show you how to do this.) * Build up your activity according to your doctor's recommendation. * Ask your doctor when it's okay to resume sexual activity. * Tell your doctor about any erectile dysfunction (ED) medication you are taking. Some ED medications are not safe if you take certain heart medications. * Try to manage stress. Follow Up: It is important for you to keep your follow up appointments with your medical provider. Current Hospital Diet Patient's current hospital diet: AHA Diet (Heart Healthy) Discharge Diet Recommended Diet: AHA Diet (Heart Healthy) Procedures Procedures Performed: PCI/Cardiac catheterization with stent placement Pending Studies Studies pending at discharge: no Laboratory Results Hemoglobin A1c Test 02/05/17 21:13 Range/Units Estimated Average Glucose 131 mg/dl Hemoglobin A1c 6.2 H 4.5-5.6 % Lipid Panel Test 02/06/17 04:25 Range/Units Triglycerides Level 127 0-150 mg/dl Cholesterol Level 213 H 0-200 mg/dl HDL Cholesterol 58 mg/dl Cholesterol/HDL Ratio 3.7 LDL Cholesterol, Calculated 130 mg/dl Work Instructions Return To Work: 1 week (02/13/17) Medical Emergencies . Who to Call and When: Medical Emergencies: If at any time you feel your situation is an emergency, please call 911 immediately. Call 911 immediately or go to your nearest Emergency Room if you experience any of the following: Warning Signs and Symptoms of a Heart Attack * Chest pain that is not relieved by medication * Shortness of breath . Non-Emergent Contact Non-Emergency issues call your: Primary Care Provider . . "Provider Documentation" section prepared by Yaneli Rossi. AMI Core Measures Reason no ASA as I/P: Treatment provided - N/A Reason no ASA at D/C: Treatment provided - N/A Reason no statin as I/P: Treatment provided - N/A Reason no statin at D/C: Treatment provided - N/A VTE Core Measure Inpt VTE Proph given/why not?: Unfractionated heparin SQ
[2017-02-07] MEDS ORDERED: LSN25 PO (12:16)
[2017-02-07] MEDS ORDERED: LPR25 PO (12:16)
[2017-02-07] MEDS ORDERED: PLV75 PO (12:16)
[2017-02-07] MEDS ORDERED: LPT40 PO (12:16)
[2017-02-07] MEDS ORDERED: NTRSLP4 SL (12:16)
--- NOTE | 2017-02-07 12:53 | Discharge Summary ---
Discharge Summary Date of Service Feb 07, 2017. (Yaneli Rossi MD) Discharge Summary Admission Date: Feb 05, 2017 at 22:25 Discharge Date: Feb 07, 2017 Discharge Disposition: Home Principal Diagnosis: NSTEMI Immunizations: Have You Had Influenza Vaccine: No History of Tetanus Vaccine?: Yes History of Pneumococcal: No History of Hepatitis B Vaccine: No Procedures: Cardiac catheterization Consultations: Cardiology (Yaneli Rossi MD) Medication Reconciliation New Medications: Metoprolol Succ (Toprol Xl) (Toprol-Xl) 25 Mg Tabcr 25 MG PO DAILY, #30 TAB Atorvastatin (Atorvastatin Calcium) 40 Mg Tab 80 MG PO QAM for 90 Days, TAB 2 Refills Clopidogrel Bisulfate (Clopidogrel) 75 Mg Tab 75 MG PO QAM for 90 Days, #90 TAB 4 Refills Lisinopril (Lisinopril) 2.5 Mg Tab 2.5 MG PO QAM for 30 Days, #30 TAB Metoprolol Tartrate (Lopressor) 25 Mg Tab 12.5 MG PO Q12 for 30 Days, #30 TAB Nitroglycerin (Nitrostat) 0.4 Mg/1 Tab Subl 0.4 MG SL UD PRN for Chest Pain for 7 Days Discharge Exam Review of Systems: Constitutional: No chills, No fever Eyes: No worsening of vision ENT: No hearing loss Respiratory: No cough, No sputum Cardiovascular: No chest pain Abdomen: No nausea, No pain, No vomiting Musculoskeletal: No joint pain Genitourinary - Female: No dysuria Neurologic: No memory loss Psychiatric: No depression symptoms Physical Exam: General Appearance: WD/WN, no apparent distress Eyes: normal inspection ENT: normal ENT inspection, hearing grossly normal Neck: supple, no adenopathy Respiratory/Chest: chest non-tender, lungs clear, normal breath sounds, no respiratory distress, no accessory muscle use Cardiovascular: regular rate, rhythm, no murmur Abdomen / GI: normal bowel sounds, non tender, soft Extremities: no calf tenderness, no pedal edema Neurologic/Psychiatric: alert, normal mood/affect, oriented x 3 Skin: normal color (Yaneli Rossi MD) Hospital Course This is a 61-year-old female who presents with chest pain which started 30 hours ago. She does not have a when she had a similar episode of chest pain, but was found to have a duodenal ulcer, she denies which she denies surgery for previous cardiac history. She reports yesterday afternoon while she was sitting down, at rest, she noticed a sudden onset, sharp pain to the left side of her chest which radiated up both sides of her jaw, and also to her back and both shoulders. She went to sleep and thought it became somewhat better She woke up overnight, and the pain had returned. She was slightly nauseated as well at that time. She tried to wait out the pain, but then this afternoon it was an 8 out of 10 in severity, so she came into the ED. She received Nitropaste and this brought it down to a 3 out of 10. Currently her pain is still about a 3. She is a nonsmoker, does not have diabetes, does not have a family history of cardiac disease. She does not take any regular medications. Her last hospital admission was 4 years ago was found to have a ruptured duodenal ulcer, did not have surgery for this. At that time she had presented with a similar chest pain but reports it was due to the ulcer. NSTEMI status post cardiac catheterization with drug-eluting stent in the circumflex marginal artery: - EKG: Inferolateral ST and T-wave abnormalities ischemia. - Echocardiogram showed inferolateral hypokinesis. -Cardiac catheterization revealed a subtotal proximal left circumflex marginal occlusion. Subsequent successful intervention to the marginal occlusion with deployment of a 3 x 18 mm drug eluting stent. No coronary, vascular, or cardiac complications post-PCI. LV angiography at the time of catheterization showed inferior and posterolateral hypokinesis. Normal overall left ventricular systolic function. She had moderate LAD stenosis. FFR of the LAD stenosis showed it to not be physiologically significant. The FFR was 0.87. Recommendations: - Aspirin 81 mg daily indefinitely - Plavix 75 mg for 1 year - Metoprolol 12.5 mg twice daily changed to metoprolol succinate 25 mg daily ( patient notified via telephone about change in medication and prescription sent to pharmacy) - Lisinopril 2.5 mg once daily , to be titrated as blood pressure allows - Atorvastatin( Lipitor ) 80 mg daily - Nitroglycerin PRN Referral made to cardiac rehabilitation. Follow-up with PCP in 1 week Follow-up with cardiology in 1-2 weeks Total Time Spent: Greater than 30 minutes This includes examination of the patient, discharge planning, medication reconciliation, and communication with other providers. (Yaneli Rossi MD) Discharge Instructions Please refer to the electronic Patient Visit Report (Discharge Instructions) for additional information. (Yaneli Rossi MD) Follow-Up Referral made to cardiac rehabilitation. Follow-up with PCP in 1 week Follow-up with cardiology in 1-2 weeks (Yaneli Rossi MD) Reviewed: Pt Seen/Exam by Me (Viviana Osullivan DO) History Pt has not had return of chest pain s/p cath with stent placement. No return of lightheadedness or jaw pain. Has been tolerating PO. No SOB. Agree with HPI/ROS as noted. (Viviana Osullivan DO) General Appearance: WD/WN, no apparent distress Respiratory: normal breath sounds, no respiratory distress Cardiovascular: normal peripheral pulses, regular rate, rhythm Gastrointestinal: non tender, soft Extremities: non-tender, no pedal edema Neurologic/Psychiatric: alert, oriented x 3 Skin Characteristics: normal color, warm/dry (Viviana Osullivan DO) Assessment/Plan Resident Physician Supervision Note: I discussed the case with the resident and agree with the findings and plan as documented in the note. Any exceptions or clarifications are listed here: Documented By: Viviana Osullivan Agree with plan as outlined above s/p cath, stents placed with rx tx as per cardiology She will be set up for cardiac rehab with [facility] (Viviana Osullivan DO)
[2017-02-07 13:06] VITALS: BP 97/65; PULSE 63; TEMP 36.7; O2SAT 97
--- NOTE | 2017-02-07 14:13 | CARDIOLOGY PROGRESS NOTE ---
DATE: 02/07/2017 DATE: 02/07/2017. SUBJECTIVE: The patient was seen by me this morning in her telemetry unit room. She is feeling well. Since her interventional procedure to her left circumflex marginal yesterday, she has had no further complaints of chest, shoulder, neck, or back discomfort. No orthopnea or PND overnight. No dyspnea walking about her room. No palpitations, lightheadedness, or syncope. No pain at her right radial and ulnar catheterization attempt sites. Mild tenderness at her right femoral catheterization site. No complaints of bleeding from the femoral catheterization site overnight. No right lower leg pain. No neurologic complaints. No pulmonary, GI, or urinary complaints. MEDICATIONS: Aspirin 81 mg daily, clopidogrel 75 mg daily, atorvastatin 80 mg daily, lisinopril 2.5 mg daily, metoprolol tartrate 12.5 mg b.i.d., and several p.r.n. medications. The patient had been on intravenous Integrilin from yesterday during the PCI procedure until this morning. It was discontinued as scheduled. ALLERGIES: No known drug allergies. MONITOR HISTORY: Since PCIs shows no arrhythmias, no further ventricular arrhythmias since 4-beat run of nonsustained ventricular tachycardia yesterday. OBJECTIVE: VITAL SIGNS: This morning with oral temperature 37.0, pulse 81, blood pressure 101/73. Pulse oximetry room air 95%. GENERAL APPEARANCE: Shows her to be in no distress. NECK: No jugular venous distention. LUNGS: Normal respiratory effort. Clear. No rales or wheezes. HEART: Regular rate and rhythm. S1, S2 normal. No S3 or S4. No murmur or rub. ABDOMEN: Soft. Nontender. No palpable masses or organomegaly. No bruits. EXTREMITIES: Right radial and ulnar calf sites without bleeding or tenderness. Both pulses are palpable. No evidence of arterial insufficiency in the right hand. Right groin without any bleeding or hematoma. Ecchymoses is present in the right groin. No bruit over the femoral artery. No pretibial edema. No calf tenderness. Distal pulses in both ankles and feet palpable. NEUROLOGICAL: Alert and oriented x3. Motor grossly intact. PSYCHIATRIC: Affect is normal. DATA: Electrocardiogram today and reviewed by me shows normal sinus rhythm, slight inferolateral ST depressions with associated T inversions consistent with ischemia. LABS TODAY: WBC 13.42, hemoglobin 11.7, hematocrit 34.6, platelet count 254,000. Her white blood cell differential shows elevated lymphocyte count 6.11. Metabolic profile today was sodium 141, potassium 3.7, chloride 109, carbon dioxide 23, BUN 8, creatinine 0.62, random glucose 98. AST 27, ALT 24. Troponin I's starting on February 05 through February 07 were 0.320, 1.090, 1.510, 5.230, 3.360, and 2.730. The peak troponin I was yesterday afternoon. The 2.730 was this morning's troponin I. ASSESSMENT: 1. Admission with non-ST elevation myocardial infarction. Inferolateral ST and T-wave abnormalities on electrocardiogram suggestive of ischemia. Echocardiogram showed inferolateral hypokinesis. Cardiac catheterization performed yesterday revealed a subtotal proximal left circumflex marginal occlusion. Subsequent successful intervention to the marginal occlusion with deployment of a 3 x 18 mm drug eluting stent. No coronary, vascular, or cardiac complications post-PCI. LV angiography at the time of catheterization showed inferior and posterolateral hypokinesis. Normal overall left ventricular systolic function. She had moderate LAD stenosis. FFR of the LAD stenosis showed it to not be physiologically significant. The FFR was 0.87. 2. No further anginal type symptoms since successful PCI. 3. No evidence of any vascular complications at the right radial and ulnar cath sites or at the right femoral catheterization site. It was reported that she had some mild bleeding at the right femoral catheterization site last evening. Manual pressure was held by the nurse. When I examined the patient last night there was no evidence of any bleeding. This morning no evidence of bleeding. No hematoma. No bruit over the femoral artery. Distal pulses strongly palpable. 4. Elevated troponin I. Troponin I did increase yesterday afternoon. It is difficult to determine whether this was the natural progression of the elevation in troponin I after her non-ST elevation myocardial infarction. Her troponin I this morning has decreased. As stated above, she has no anginal symptoms since the PCI. There is KATRINA 3 flow in the marginal prior to intervention and following intervention. 5. No further ventricular arrhythmias since yesterday morning. 6. She is tolerating low dose lisinopril and metoprolol well thus far. 7. Dyslipidemia. Calculated LDL on this admission was 130. Total cholesterol 213, HDL 58. 8. Elevated white blood cell count with elevated lymphocyte count. The patient informed me today that she has previously been diagnosed with chronic lymphocytic leukemia. She is followed at the [facility] by Dr. Fields for this. She receives no specific therapy for the CLL. 9. Platelet count stable post-Integrilin administration. 10. Renal function stable post cardiac catheterization. RECOMMENDATIONS: 1. The patient can be discharged home today. 2. Change metoprolol to metoprolol succinate ER 25 mg 1 daily. 3. Aspirin and clopidogrel daily for at least 1 year. The importance of taking these medications on a daily basis were discussed with the patient by me. 4. Atorvastatin 80 mg daily. 5. Lisinopril 2.5 mg daily. 6. The patient was instructed by me to call 911 immediately if she had any recurrence of the anginal symptoms which she had prior to the stent procedure. 7. She was asked to call my office if she has any questions or problems regarding her cardiac condition or catheterization/PCI procedure. 8. Refer to cardiac rehab. 9. I will arrange cardiology followup for her to be seen at the [facility] offices in [place]. Follow up in 1-2 weeks. 10. Recommend that the patient remain off of work for at least the remainder of this week.
[2017-02-07] MEDS ORDERED: METO25TA3 PO (17:08)
[2017-02-11 01:27] LABS: COXSACKIE A10 <1:8; COXSACKIE A16 <1:8; COXSACKIE A2 <1:8; COXSACKIE A4 <1:8; COXSACKIE A7 <1:8; COXSACKIE A9 <1:8; COXSACKIE B1 <1:8 (<1:8); COXSACKIE B2 <1:8 (<1:8); COXSACKIE B3 <1:8 (<1:8); COXSACKIE B4 <1:8 (<1:8); COXSACKIE B5 <1:8 (<1:8); CYTOMEGALOVIRUS IGG AB 3.47; EPSTEIN BARR VIR CAPSID IGG 3.27 INDEX; PARVOVIRUS IgG INDEX 6.2 (<0.9); PARVOVIRUS IgM INDEX 0.2 (<0.9)
== END 2017-02-07 13:35 | disposition home or self-care (01) | DRG 247 ==
LOC: ENRESERVDT → ENRESERVTM → C.EDB 20:32 → C.2T 22:25
PROVIDERS: ADMIT Hospitalist; ATTEND Family Medicine
PROC: 4A023N7 Measurement of Cardiac Sampling and Pressure, Left Heart, Percutaneous Approach (ICD-10-PCS; principal; 2017-02-06 10:48)
PROC: 027034Z Dilation of Coronary Artery, One Artery with Drug-eluting Intraluminal Device, Percutaneous Approach (ICD-10-PCS; principal; 2017-02-06 10:48)
PROC: B2111ZZ Fluoroscopy of Multiple Coronary Arteries using Low Osmolar Contrast (ICD-10-PCS; principal; 2017-02-06 10:48)
PROC: B2151ZZ Fluoroscopy of Left Heart using Low Osmolar Contrast (ICD-10-PCS; principal; 2017-02-06 10:48)
DX: I21.4 Non-ST elevation (NSTEMI) myocardial infarction (principal); C91.10 Chronic lymphocytic leukemia of B-cell type not having achieved remission; I47.2 Ventricular tachycardia; R94.31 Abnormal electrocardiogram [ECG] [EKG]; R79.89 Other specified abnormal findings of blood chemistry; I25.10 Atherosclerotic heart disease of native coronary artery without angina pectoris; E78.5 Hyperlipidemia, unspecified; D72.829 Elevated white blood cell count, unspecified; R07.9 Chest pain, unspecified; I51.89 Other ill-defined heart diseases

== ENCOUNTER 2017-06-13 07:22 | Emergency (ER) | payer OTHER ==
[~2017-06-13] VITALS: Ht 160 cm; Wt 61.9 kg
[~2017-06-13 07:22] MED LIST changes: +LPR25 PO; +LPT40 PO; +LSN25 PO; +METO25TA3 PO; -NO CURRENT MEDS; +NTRSLP4 SL; +PLV75 PO
[2017-06-13 07:26] VITALS: TEMP 37; Ht 160 cm; Wt 61.9 kg
[2017-06-13] MEDS ORDERED: SODIUM CHLORIDE 0.9% 1000ML 1,000 ML IV STA (08:08)
[2017-06-13 08:15] LABS: BASO % 0.1 %; BASO ABS # 0.01 K/uL (0-0.2); COMPLETE YES; HEMATOCRIT 42.8 % (37-47); IG% 0.3 %; LYMPH % 24.8 %; LYMPH ABS # 4.07 K/uL (1.2-3.4); MEAN CELL VOLUME 90.9 fL (80-100); MEAN CORPUSCULAR HEMOGLOBIN 30.4 pg (25-34); MEAN CORPUSCULAR HGB CONC 33.4 g/dl (32-36); MEAN PLATELET VOLUME 8.9 fL (7.4-10.4); MONO % 4.3 %; NEUT % 70.5 %; PLATELET COUNT 355 K/uL (130-400); RED BLOOD COUNT 4.71 M/uL (4.2-5.4); WHITE BLOOD COUNT 16.39 K/uL (4.8-10.8)
[2017-06-13] MEDS ORDERED: OPTIRAY 320 IV PRN (08:15)
[2017-06-13 08:26] LABS: INR 0.9 (0.9-1.1); PARTIAL THROMBOPLASTIN RATIO 0.9; PROTHROMBIN TIME (PATIENT) 9.6 SECONDS (9.0-12.0)
[2017-06-13 08:41] LABS: URINE APPEARANCE CLOUDY (CLEAR); URINE BILIRUBIN NEG (NEG); URINE COLOR YELLOW; URINE EPITHELIAL CELL AUTO >30 /lpf (0-5); URINE NITRITE NEG (NEG); URINE PH 5.5 (4.5-7.5); URINE SPECIFIC GRAVITY 1.026 (1.000-1.030); UROBILINOGEN NEG (NEG)
[2017-06-13 08:44] LABS: MANUAL MICROSCOPIC REQUIRED? NO; REVIEW REQ? NO
--- NOTE | 2017-06-13 08:53 | DIAGNOSTIC IMAGING REPORT ---
ABDOMEN 2VIEW W/PA CHEST RTN CLINICAL HISTORY: ABDOMINAL PAIN/GI pain COMPARISON STUDY: 02/05/2017 FINDINGS: The soft tissues, psoas shadows, renal outlines and intestinal gas pattern appear normal. There is no evidence for bowel obstruction. There is no evidence for free intraperitoneal air. No abnormal abdominal calcifications are seen. A frontal view of the chest was performed and is unremarkable. IMPRESSION: Normal study. The above report was generated using voice recognition software. It may contain grammatical, syntax or spelling errors. Electronically signed by: Hitesh Bailey M.D. 06/13/2017 8:52 AM Dictated Date/Time: 06/13/2017 8:51 AM
[2017-06-13 08:56] LABS: POTASSIUM 3.9 mmol/L (3.5-5.1)
[2017-06-13 08:59] LABS: BUN/CREATININE RATIO 21.5 (10-20); CALCIUM 9.2 mg/dl (8.5-10.1); CREATININE 0.86 mg/dl (0.60-1.20)
--- NOTE | 2017-06-13 09:48 | DIAGNOSTIC IMAGING REPORT ---
ABD/PELVIS IV CONTRAST ONLY CT DOSE: 307.56 mGy.cm HISTORY: Pain lower abd pain, blood stools, orthostatic TECHNIQUE: Multiaxial CT images of the abdomen and pelvis were performed following the use of intravenous contrast. COMPARISON STUDY: 09/13/2014 FINDINGS: Lung bases are clear. Liver spleen and pancreas are unremarkable. Kidneys enhance uniformly. There are several small parapelvic cysts bilaterally. Small bowel pattern is unremarkable. Colon demonstrates a mild degree of wall edema. This is seen uniformly throughout all major components of the colon. It is not well seen in the sigmoid. Appearance is consistent with that of a nonspecific colitis. No evidence for abscess collection or obstruction. IMPRESSION: Mild nonspecific colitis. No evidence for abscess collection or obstruction. The above report was generated using voice recognition software. It may contain grammatical, syntax or spelling errors. Electronically signed by: Hitesh Bailey M.D. 06/13/2017 9:46 AM Dictated Date/Time: 06/13/2017 9:39 AM
[2017-06-13 11:22] VITALS: BP 175/86; PULSE 64; O2SAT 96
--- NOTE | 2017-06-13 16:27 | EMERGENCY ROOM VISIT NOTE ---
ED Visit Note First contact with patient: 07:51 Chief Complaint: Lower abdominal pain and bloody stools. History of Present Illness: Ms. Drake is a 62 year-old white female who is brought into the ED via ambulance complaining of lower quadrant pain and bright red blood per rectum. Historically patient reports in 2012 a intestinal tear was noted on CT scan. She was transferred to a hospital in [place] and was nothing by mouth for approximately one month and a repeat CT scan showed resolution of her tear. Additionally in January of this year she had a SC and after her SC she was placed on Plavix. Plavix was causing her joint pain and was subsequently stopped. Patient reports she was feeling fine over the last few days. At 2 AM this morning, approximately 6 hours before she arrived in the emergency department, she reports an acute onset of mid lower quadrant abdominal pain. She reports at its onset she describes the pain as cramping and severe and rated her discomfort 10/10. She went to the bathroom and reported that she had a large amount of bright red blood per rectum. During this episode she reports the pain became so severe she became diaphoretic and had a near syncopal episode. After having her bowel movement she reports the pain subsided and she had 4 additional episodes of similar pain and bloody stools. Currently she is still describing her pain as a cramping sensation. She places it just below the umbilicus. She rates her discomfort 2/10. The pain is nonradiating. The pain escalates just prior to her need to go to the bathroom. She has not taken any medications for her symptoms prior to arrival at the hospital. Associated with her pain she reports that she did become diaphoretic when she was having the pain an sensations of heart racing. She denies fevers, chills, skin eruptions, skin color changes, upper respiratory tract symptoms, shortness of breath, chest pain, nausea, vomiting, constipation, black/tarry stools, urinary symptoms, hematuria, vaginal bleeding , vaginal discharge, back/flank pain, easy bruising, easy bleeding. Review of Systems: As noted above in history of present illness. All body systems were reviewed and found to be negative as noted above. Past Medical History: As previously noted and status post tubal ligation. Current Medications: Patient denies. Allergies to Medications: Patient denies. Social History: Patient is currently employed; she lives with her and feels safe in her home environment; she denies tobacco and alcohol use. Physical Examination: Vital Signs: Date Time Temp Pulse Resp B/P (MAP) Pulse Ox O2 Delivery O2 Flow Rate FiO2 06/13/17 11:22 64 18 175/86 96 Room Air 06/13/17 10:00 64 18 151/84 98 Room Air 06/13/17 08:34 142/74 127/71 96/68 06/13/17 08:33 70 97 Room Air 06/13/17 07:53 76 06/13/17 07:26 37.0 75 18 152/83 97 Room Air GENERAL: 62-year-old female in mild distress due to pain, nontoxic-appearing, afebrile and hemodynamically stable. NEUROLOGICAL: Awake, alert and oriented to person, place and time. Answering questions appropriately and following commands. Normal gait. Good hand eye coordination. SKIN: Warm, dry and pink. No soft tissue eruptions or trauma noted. HEENT: Atraumatic and normocephalic. PERRLa. Sclera white and conjunctiva pink. Oral cavity moist and pink. Pharynx is nonerythematous or edematous. Speech normal. No lymphadenopathy. Trachea midline. No jugular venous distention. BACK: No tenderness over the bony spine. No CVA tenderness. THORAX: Lungs sounds are clear to auscultation and equal bilaterally with symmetrical chest wall. No wheezing, rales or rhonchi. No crepitus, tenderness , subcutaneous air or deformities noted. HEART: Regular rate and rhythm. No gallops, rubs or murmurs are appreciated. ABDOMEN: Flat, soft and nontender. Decreased bowel sounds in all quadrants. No guarding, rigidity or organomegaly. Prior to seeing the patient she was able to give a stool sample and it was grossly heme positive by visual evaluation. EXTREMITIES: Moves all extremities well on command and with purpose. All distal neurovascular statuses are intact and equal bilaterally. ED Course: Patient is assessed as noted above. Patient's medication list was reviewed. Laboratory Testing: Test 06/13/17 07:45 06/13/17 07:55 06/13/17 08:30 06/13/17 09:38 Range/Units White Blood Count 16.39 4.8-10.8 K/uL Red Blood Count 4.71 4.2-5.4 M/uL Hemoglobin 14.3 12.0-16.0 g/dL Hematocrit 42.8 37-47 % Mean Corpuscular Volume 90.9 80-100 fL Mean Corpuscular Hemoglobin 30.4 25-34 pg Mean Corpuscular Hemoglobin Concent 33.4 32-36 g/dl Platelet Count 355 130-400 K/uL Mean Platelet Volume 8.9 7.4-10.4 fL Neutrophils (%) (Auto) 70.5 % Lymphocytes (%) (Auto) 24.8 % Monocytes (%) (Auto) 4.3 % Eosinophils (%) (Auto) 0.0 % Basophils (%) (Auto) 0.1 % Neutrophils # (Auto) 11.55 1.4-6.5 K/uL Lymphocytes # (Auto) 4.07 1.2-3.4 K/uL Monocytes # (Auto) 0.71 0.11-0.59 K/uL Eosinophils # (Auto) 0.00 0-0.5 K/uL Basophils # (Auto) 0.01 0-0.2 K/uL RDW Standard Deviation 47.0 36.4-46.3 fL RDW Coefficient of Variation 14.0 11.5-14.5 % Immature Granulocyte % (Auto) 0.3 % Immature Granulocyte # (Auto) 0.05 0.00-0.02 K/uL Prothrombin Time 9.6 9.0-12.0 SECONDS Prothromb Time International Ratio 0.9 0.9-1.1 Activated Partial Thromboplast Time 23.8 21.0-31.0 SECONDS Partial Thromboplastin Ratio 0.9 Sodium Level 139 136-145 mmol/L Potassium Level 3.9 3.5-5.1 mmol/L Chloride Level 108 98-107 mmol/L Carbon Dioxide Level 23 21-32 mmol/L Anion Gap 8.0 3-11 mmol/L Blood Urea Nitrogen 19 7-18 mg/dl Creatinine 0.86 0.60-1.20 mg/dl Est Creatinine Clear Calc Drug Dose 55.4 ml/min Estimated GFR () 83.3 Estimated GFR (Non- 71.9 BUN/Creatinine Ratio 21.5 10-20 Random Glucose 129 70-99 mg/dl Calcium Level 9.2 8.5-10.1 mg/dl Total Bilirubin 0.2 0.2-1 mg/dl Direct Bilirubin 0.1 0-0.2 mg/dl Aspartate Amino Transf (AST/SGOT) 22 15-37 U/L Alanine Aminotransferase (ALT/SGPT) 31 12-78 U/L Alkaline Phosphatase 78 45-117 U/L Total Protein 8.1 6.4-8.2 gm/dl Albumin 3.7 3.4-5.0 gm/dl Lipase 138 73-393 U/L Stool Occult Blood POSITIVE NEGATIVE Urine Color YELLOW Urine Appearance CLOUDY CLEAR Urine pH 5.5 4.5-7.5 Urine Specific [place] 1.026 1.000-1.030 Urine Protein NEG NEG Urine Glucose (UA) NEG NEG Urine Ketones NEG NEG Urine Occult Blood NEG NEG Urine Nitrite NEG NEG Urine Bilirubin NEG NEG Urine Urobilinogen NEG NEG Urine Leukocyte Esterase NEG NEG Urine WBC (Auto) 1-5 0-5 /hpf Urine RBC (Auto) 0-4 0-4 /hpf Urine Hyaline Casts (Auto) 1-5 0-5 /lpf Urine Epithelial Cells (Auto) >30 0-5 /lpf Urine Bacteria (Auto) NEG NEG Lactic Acid Level 0.8 0.4-2.0 mmol/L Acute Abdominal X-Ray Series: Was read by myself and the radiologist showing a normal PA chest with no signs of infiltrates, effusions or pneumothorax. Normal heart silhouette. Abdominal component shows no free air, and a nonobstructive bowel gas pattern. IV Contrast Abdominal/Pelvic CT: Showing nonspecific colitis with no evidence of abscess collection or obstruction. EKG: Was read by myself and reviewed with Dr. Bar; shows normal sinus rhythm with a ventricular rate of 72 bpm. Normal axis, intervals and complexes. No acute ST changes indicating ischemia, injury or infarction. This was compared to previous from January [address] depression in the inferior leads are no longer present. Patient was hydrated with normal saline and refused pain medications. Patient was reassessed multiple times during her stay in the emergency department. Patient's case was reviewed with Dr. Bar; we agreed on diagnostic approach, treatment, disposition and plan. Patient was educated about tonight's findings and instructed on her treatment plan; she verbalizes understanding and agreement with this plan. Clinical Impression: Hemorrhagic colitis. Decision-Making: Initially my differential diagnosis I considered colitis, diverticulitis, perforated viscus, rectum tear, hemorrhoids, and other causes. Disposition: Patient discharged home in stable condition accompanied by her ; prior to departure she was reassessed and subjectively reported that she was pain and symptom-free. Plan: Patient was encouraged use 650 mg of acetaminophen every 6 hours. Patient was encouraged use a bland diet and avoid stomach irritants. Patient was encouraged to stay well-hydrated with increased clear fluids. Patient was encouraged to contact her family physician for follow-up care and referral to gastroenterology for possible colonoscopy. Patient was encouraged return the ED for worsening/uncontrolled pain, worsening bloody stools, black/tarry stools, fevers or any new/concerning symptoms.
== END 2017-06-13 11:32 | disposition home or self-care (01) ==
LOC: C.EDB 07:23 → C.EDA 11:32
DX: K52.9 Noninfective gastroenteritis and colitis, unspecified (principal); I25.2 Old myocardial infarction; Z79.01 Long term (current) use of anticoagulants; Z98.51 Tubal ligation status

== ENCOUNTER 2017-08-21 12:46 | Observation (INO) | payer OTHER ==
[~2017-08-21] VITALS: Ht 157.5 cm; Wt 63.0 kg
[2017-08-21 07:26] VITALS: BP 122/77; PULSE 57; TEMP 36.4; O2SAT 97
[2017-08-21] MEDS ORDERED: ALUMINUM/MAGNESIUM SUSP 30 ML UDC PO STA (13:09)
[2017-08-21] MEDS ORDERED: ASPIRIN 81 MG CHEW PO STA (13:09)
[2017-08-21] MEDS ORDERED: ONDANSETRON INJ 2 MG/ML 2 ML VIAL IV STA (13:09)
--- NOTE | 2017-08-21 13:12 | EMERGENCY ROOM VISIT NOTE ---
History Report prepared by Deyanira: Tye Ivan Under the Supervision of: Dr. Matthieu Fernandez D.O. First contact with patient: 13:04 Chief Complaint: CHEST PAIN Stated Complaint: CHEST PAIN History of Present Illness The patient is a 62 year old female who presents to the Emergency Room with complaints of chest pain that occurred this morning. Her pain has now resolved. At this time, the patient was sitting at her desk at work when she became very lightheaded and nauseated. She noticed a mild pain in her central chest and felt very clammy so she took 1 nitroglycerin. Her pain resolved after that. She is still nauseated and lightheaded. She has a history of a previous WI with a heart stent in place. This is the first time she had to take a nitroglycerin since her procedure. She states her symptoms were not similar to her previous WI. She denies any abdominal pain, leg swelling, leg pain, or shortness of breath. She did not take any Aspirin. Source of History: patient Onset: this morning Position: chest Symptom Intensity: mild Quality: ache Timing: resolved Associated Symptoms: + nausea, No SOB, No abdominal pain Note: She denies any leg swelling or pain. She is lightheaded. Review of Systems See HPI for pertinent positives & negatives. A total of 10 systems reviewed and were otherwise negative. Past Medical & Surgical Medical Problems: (1) Chest pain (2) Elevated troponin Surgical Problems: (1) History of tubal ligation Family History Cancer Social History Smoking Status: Never Smoker Smokeless Tobacco Use: No Alcohol Use: none Drug Use: none Marital Status: Housing Status: lives with family Occupation Status: employed Current/Historical Medications Scheduled Aspirin (Aspirin Ec), 81 MG PO DAILY Allergies Coded Allergies: No Known Allergies (Verified , 08/21/17) Physical Exam Vital Signs Date Time Temp Pulse Resp B/P (MAP) Pulse Ox O2 Delivery O2 Flow Rate FiO2 08/21/17 16:00 60 18 144/89 96 Room Air 08/21/17 15:58 36.7 64 16 129/82 98 Room Air 08/21/17 14:13 59 16 143/82 100 Room Air 08/21/17 13:38 61 08/21/17 13:07 100 Room Air 08/21/17 13:07 100 Room Air 08/21/17 12:59 36.7 64 18 128/68 100 Room Air Physical Exam GENERAL: Patient is awake, alert, and in no acute distress. Patient is resting comfortably and showing no signs of anxiety EYES: The conjunctivae are clear. The pupils are round and reactive. EARS, NOSE, MOUTH AND THROAT: The nose is without any evidence of any deformity. Mucous membranes are moist tongue is midline NECK: The neck is nontender and supple. RESPIRATORY: Normal respiratory effort is noted there is no evidence of wheezing rhonchi or rales CARDIOVASCULAR: Regular rate and rhythm noted there no murmurs rubs or gallops normal S1 normal S2 GASTROINTESTINAL: The abdomen is soft. Bowel sounds are present in all quadrants. Abdomen is nontender MUSCULOSKELETAL/EXTREMITIES: There is no evidence of gross deformity full range of motion is noted in the hips and shoulders SKIN: There is no obvious evidence of any rash. There are no petechiae, pallor or cyanosis noted. NEUROLOGIC: Patient is awake alert and oriented x3 Medical Decision & Procedures ER Provider Diagnostic Interpretation: Radiology results as stated below per my review and radiologist interpretation: CHEST ONE VIEW PORTABLE HISTORY: Generalized abdominal pain. COMPARISON: Chest 06/13/2017. FINDINGS: The lungs are clear. Cardiac silhouette is normal in size. No pleural effusions. No pneumothorax. IMPRESSION: No acute process. Electronically signed by: Bernardo Pinto M.D. 08/21/2017 1:57 PM Dictated Date/Time: 08/21/2017 1:54 PM Laboratory Results 08/21/17 13:20 Red Blood Count 4.44, Mean Corpuscular Volume 91.7, Mean Corpuscular Hemoglobin 31.1, Mean Corpuscular Hemoglobin Concent 33.9, Mean Platelet Volume 9.2 08/21/17 13:20 Test 08/21/17 13:20 08/21/17 14:10 White Blood Count 12.34 K/uL (4.8-10.8) Red Blood Count 4.44 M/uL (4.2-5.4) Hemoglobin 13.8 g/dL (12.0-16.0) Hematocrit 40.7 % (37-47) Mean Corpuscular Volume 91.7 fL (80-100) Mean Corpuscular Hemoglobin 31.1 pg (25-34) Mean Corpuscular Hemoglobin Concent 33.9 g/dl (32-36) Platelet Count 333 K/uL (130-400) Mean Platelet Volume 9.2 fL (7.4-10.4) RDW Standard Deviation 48.6 fL (36.4-46.3) RDW Coefficient of Variation 14.4 % (11.5-14.5) Neutrophils % (Manual) 30.4 % Lymphocytes % (Manual) 56.5 % Variant Lymphocytes % (manual) 12.2 % Monocytes % (Manual) 0.9 % Neutrophils # (Manual) 3.75 K/uL (1.4-6.5) Total Absolute Neutrophils 3.75 K/uL (1.4-6.5) Lymphocytes # (Manual) 6.97 K/uL (1.2-3.4) Absolute Variant Lymphocytes 1.51 K/uL Total Absolute Lymphocytes 8.48 K/uL (1.2-3.4) Monocytes # (Manual) 0.11 K/uL (0.11-0.59) Prothrombin Time 10.0 SECONDS (9.0-12.0) Prothromb Time International Ratio 0.9 (0.9-1.1) Activated Partial Thromboplast Time 23.0 SECONDS (21.0-31.0) Partial Thromboplastin Ratio 0.9 Anion Gap 10.0 mmol/L (3-11) Est Creatinine Clear Calc Drug Dose 75.0 ml/min Estimated GFR () 108.4 Estimated GFR (Non- 93.5 BUN/Creatinine Ratio 30.1 (10-20) Calcium Level 9.1 mg/dl (8.5-10.1) Total Bilirubin 0.3 mg/dl (0.2-1) Direct Bilirubin < 0.1 mg/dl (0-0.2) Aspartate Amino Transf (AST/SGOT) 20 U/L (15-37) Alanine Aminotransferase (ALT/SGPT) 25 U/L (12-78) Alkaline Phosphatase 70 U/L (45-117) Total Creatine Kinase 140 U/L (26-192) Creatine Kinase MB 2.0 ng/ml (0.5-3.6) Creatine Kinase MB Ratio 1.4 (0-3.0) Troponin I < 0.015 ng/ml (0-0.045) Total Protein 7.6 gm/dl (6.4-8.2) Albumin 3.7 gm/dl (3.4-5.0) Lipase 194 U/L (73-393) Urine Color YELLOW Urine Appearance CLEAR (CLEAR) Urine pH 5.5 (4.5-7.5) Urine Specific [place] 1.023 (1.000-1.030) Urine Protein NEG (NEG) Urine Glucose (UA) NEG (NEG) Urine Ketones 1+ (NEG) Urine Occult Blood NEG (NEG) Urine Nitrite NEG (NEG) Urine Bilirubin NEG (NEG) Urine Urobilinogen NEG (NEG) Urine Leukocyte Esterase NEG (NEG) Laboratory results per my review. Medications Administered Medications (Trade) Dose Ordered Sig/Forest Route Start Time Stop Time Status Last Admin Dose Admin Al Hydroxide/Mg Hydroxide (Maalox Susp) 30 ml NOW STAT PO 08/21/17 13:09 08/21/17 13:10 DC 08/21/17 13:19 30 ML Ondansetron HCl (Zofran Inj) 4 mg NOW STAT IV 08/21/17 13:09 08/21/17 13:11 DC 08/21/17 13:19 4 MG Aspirin (Aspirin Chew) 324 mg NOW STAT PO 08/21/17 13:09 08/21/17 13:11 DC 08/21/17 13:19 324 MG Sodium Chloride 1,000 ml @ 100 mls/hr Q10H IV 08/21/17 15:56 09/20/17 15:55 08/21/17 17:50 100 MLS/HR ECG Indication: chest pain, nausea Rate (beats per minute): 65 Rhythm: normal sinus Findings: no ectopy, other (No acute STS) ED Course 1304: The patient was evaluated in room A9B. A complete history and physical examination were performed. 1309: Aspirin 324 mg PO, Zofran Inj 4 mg IV, Maalox Susp 30 ml PO 1526: Upon reevaluation, the patient is resting. I discussed results and treatment plan with her. She verbalizes agreement and understanding. I spoke with Dr. Rodriguez of the [facility]. The patient will be evaluated for further management and care. Medical Decision Differential diagnosis: Etiologies such as cardiac ischemia, aortic dissection, pulmonary embolism, pneumonia, pneumothorax, musculoskeletal, infections, pericarditis, myocarditis , esophageal rupture, gastrointestinal, as well as others were entertained. Nursing notes reviewed. The patient is a 62-year-old female who presented to the emergency department for an evaluation of chest discomfort. The patient describes retrosternal chest pain which was associated with diaphoresis as well as nausea. She did not appear to have any acute abdominal pain on physical exam. I discussed patient's laboratory and radiographic studies with her. I also discussed the limitations of the emergency department workup for chest pain with her. Her EKG did not show any acute changes from previous. Her cardiac biomarkers did not show any abnormality. Because of her risk factors I discussed her case with the on-call [facility] hospitalist. They've agreed to evaluate the patient in the emergency apartment for further management and disposition. Medication Reconcilliation Current Medication List: was personally reviewed by me Blood Pressure Screening Patient's blood pressure: Elevated blood pressure Blood pressure disposition: Elevated BP felt to be situational Consults Time Called: 1520 Consulting Physician: Dr. Jennifer SALCIDO Returned Call: 1526 I discussed the patient's case with him. The patient will be evaluated for further management. Impression Primary Impression: Substernal chest pain Scribe Attestation The scribe's documentation has been prepared under my direction and personally reviewed by me in its entirety. I confirm that the note above accurately reflects all work, treatment, procedures, and medical decision making performed by me. Departure Information Dispostion Being Evaluated By Hospitalist Referrals Jazz Garcia M.D. (PCP) Patient Instructions My [facility]
[2017-08-21 13:43] LABS: HEMATOCRIT 40.7 % (37-47); MEAN CELL VOLUME 91.7 fL (80-100); MEAN CORPUSCULAR HEMOGLOBIN 31.1 pg (25-34); MEAN CORPUSCULAR HGB CONC 33.9 g/dl (32-36); MEAN PLATELET VOLUME 9.2 fL (7.4-10.4); PLATELET COUNT 333 K/uL (130-400); RED BLOOD COUNT 4.44 M/uL (4.2-5.4); WHITE BLOOD COUNT 12.34 K/uL (4.8-10.8)
[2017-08-21 13:58] LABS: INR 0.9 (0.9-1.1); PARTIAL THROMBOPLASTIN RATIO 0.9
--- NOTE | 2017-08-21 13:59 | DIAGNOSTIC IMAGING REPORT ---
CHEST ONE VIEW PORTABLE HISTORY: Generalized abdominal pain. COMPARISON: Chest 06/13/2017. FINDINGS: The lungs are clear. Cardiac silhouette is normal in size. No pleural effusions. No pneumothorax. IMPRESSION: No acute process. Electronically signed by: Bernardo Pinto M.D. 08/21/2017 1:57 PM Dictated Date/Time: 08/21/2017 1:54 PM
[2017-08-21 14:09] LABS: ALT/SGPT 25 U/L (12-78); AST/SGOT 20 U/L (15-37); BLOOD UREA NITROGEN 20 mg/dl (7-18); BUN/CREATININE RATIO 30.1 (10-20); CALCIUM 9.1 mg/dl (8.5-10.1); CARBON DIOXIDE 24 mmol/L (21-32); CHLORIDE 106 mmol/L (98-107); CREATININE 0.67 mg/dl (0.60-1.20); GLUCOSE 111 mg/dl (70-99); POTASSIUM 3.6 mmol/L (3.5-5.1); SODIUM 140 mmol/L (136-145)
[2017-08-21 14:14] LABS: ALKALINE PHOSPHATASE 70 U/L (45-117); CKMB/CK RATIO 1.4 (0-3.0)
[2017-08-21 14:25] LABS: LYMPH ABS # 6.97 K/uL (1.2-3.4); LYMPHOCYTE % 56.5 %; NEUTROPHILS % 30.4 %; VARIANT LYM ABS # 1.51 K/uL; VARIANT LYMPHOCYTE % 12.2 %
[2017-08-21 14:25] LABS: URINE APPEARANCE CLEAR (CLEAR); URINE BILIRUBIN NEG (NEG); URINE COLOR YELLOW; URINE NITRITE NEG (NEG); URINE PH 5.5 (4.5-7.5); URINE SPECIFIC GRAVITY 1.023 (1.000-1.030); UROBILINOGEN NEG (NEG)
[2017-08-21 14:30] LABS: COMPLETE YES
[2017-08-21 14:31] LABS: MANUAL MICROSCOPIC REQUIRED? NO; REVIEW REQ? NO
[2017-08-21 15:58] VITALS: BP 129/82; PULSE 64; TEMP 36.7; O2SAT 98; Ht 157.5 cm; Wt 63.0 kg
[2017-08-21] MEDS ORDERED: ALUMINUM/MAGNESIUM/SIMETH (MAALOX MAX) 30 ML UDC PO PRN (16:00)
[2017-08-21] MEDS ORDERED: MAGNESIUM HYDROXIDE SUSP 30 ML UDC PO PRN (16:00)
[2017-08-21] MEDS ORDERED: FAMOTIDINE 20 MG TAB PO ONE (16:00)
[2017-08-21] MEDS ORDERED: NITROGLYCERIN 0.4 MG SL PER TAB CHARGE SL PRN (16:00)
[2017-08-21] MEDS ORDERED: POLYETHYLENE (MIRALAX) 17 GM PACK PO PRN (16:00)
[2017-08-21] MEDS ORDERED: ONDANSETRON INJ 2 MG/ML 2 ML VIAL IV PRN (16:00)
[2017-08-21] MEDS ORDERED: ACETAMINOPHEN 325 MG TAB PO PRN (16:00)
[2017-08-21] MEDS ORDERED: ASPI81TA28 PO (16:30)
--- NOTE | 2017-08-21 16:40 | History and Physical ---
History & Physical Date & Time of Service: Aug 21, 2017 at 16:33 Chief Complaint: Chest Pain Primary Care Physician: Jazz Garcia M.D. History of Present Illness Source: patient Ms. Drake is a 62 y/o female with PMHx of NSTEMI S/P ALBERTO (January 2017), HTN, HLD , Hiatal Hernia, and Duodenal Ulcer Perforation (2013) who presents to the ED c/ o midsternal CP, N/V, and dizziness that started this AM. Patient reports that she was feeling well and her normal self when she woke up this AM. While at work and sitting at her desk, she began to experience dizziness and nausea without emesis. She reports the dizziness progressively worsened and felt like the room was spinning. She reports adequate fluid/food intake. The nausea started after the dizziness began. She denies recent URI symptoms. She also developed a mild central chest pain that was burning in nature and got diaphoretic. She denies H/O GERD but states she has a hiatal hernia. Upon review of [employer], she has reports previous episodes of burning CP. Due to the pain, she took 1 NTG with complete relief of CP. She reports that she has never had to use her NTG since her NSTEMI in January. She did report one small episode of emesis in the ED but reporting nausea and CP resolved. Lightheadedness continues but no slurred speech, facial droop, or focal neurological deficits. Currently, she reports an intermittent bilateral lower chest "twitch". She states that she had Toprol XL, Lisinopril, and Atorvastatin D/C'd due to fatigue and muscle aches. She stopped Plavix on her own and states she is not planning on restarting this. She does take her daily ASA 81 mg. She does not take any acid reducing medications. She reports one episode of BRBPR in June that has since resolved. She denies fever/chills, SOB, abdominal pain , dysuria, melena/hematochezia. Past Medical/Surgical History 1. Duodenal Ulcer with Perforation (2013) 2. NSTEMI S/P ALBERTO (January 2017) 3. Hiatal Hernia 4. S/P Tubal Ligation Family History Cancer Social History Smoking Status: Never Smoker Smokeless Tobacco Use: No Alcohol Use: none Drug Use: none Marital Status: Housing status: lives with family Occupational Status: employed Immunizations History of Influenza Vaccine: No History of Tetanus Vaccine?: Yes History of Pneumococcal: No History of Hepatitis B Vaccine: No Multi-Drug Resistant Organisms History of MDRO: No Allergies Coded Allergies: No Known Allergies (Verified , 08/21/17) Home Medications Scheduled Aspirin (Aspirin Ec), 81 MG PO DAILY Omeprazole (Prilosec), 1 CAP PO DAILY Rosuvastatin Calcium (Crestor), 10 MG PO Q2D Scheduled PRN Nitroglycerin (Nitrostat), 0.4 MG SL UD PRN for Chest Pain Review of Systems Constitutional: + sweats, No fever, No chills Eyes: No worsening of vision, No eye pain, No diplopia ENT: No hearing loss, No nasal symptoms, No sore throat, No trouble swallowing Respiratory: No cough, No dyspnea on exertion, No dyspnea at rest Cardiovascular: + chest pain (resolved - intermittent b/l lower chest "twitches "), No palpitations Abdomen: + nausea (resolved), + vomiting (x 1), No pain, No diarrhea, No constipation, No GI bleeding Musculoskeletal: No swelling, No calf pain Genitourinary - Female: No dysuria, No urinary frequency Neurologic: + vertigo, No weakness, No numbness/tingling Hematologic / Lymphatic: No abnormal bleeding/bruising Physical Exam Vital Signs Date Time Temp Pulse Resp B/P (MAP) Pulse Ox O2 Delivery O2 Flow Rate FiO2 08/21/17 16:00 60 18 144/89 96 Room Air 08/21/17 15:58 36.7 64 16 129/82 98 Room Air 08/21/17 14:13 59 16 143/82 100 Room Air 08/21/17 13:38 61 08/21/17 13:07 100 Room Air 08/21/17 13:07 100 Room Air 08/21/17 12:59 36.7 64 18 128/68 100 Room Air General Appearance: WD/WN, no apparent distress Head: normocephalic, atraumatic Eyes: PERRL, EOMI, sclerae normal ENT: hearing grossly normal, TMs normal, + pertinent finding (ear canals without cerumen b/l) Neck: supple, no JVD, trachea midline Respiratory/Chest: lungs clear, normal breath sounds, no respiratory distress, no accessory muscle use Cardiovascular: regular rate, rhythm, no gallop, no murmur Abdomen/GI: normal bowel sounds, non tender, soft Extremities/Musculoskelatal: no calf tenderness, no pedal edema Neurologic/Psych: no motor/sensory deficits (Romberg negative), alert, oriented x 3 Skin: normal color, no rash Diagnostics Laboratory Results Results Past 24 Hours Test 08/21/17 13:20 08/21/17 14:10 Range/Units White Blood Count 12.34 4.8-10.8 K/uL Red Blood Count 4.44 4.2-5.4 M/uL Hemoglobin 13.8 12.0-16.0 g/dL Hematocrit 40.7 37-47 % Mean Corpuscular Volume 91.7 80-100 fL Mean Corpuscular Hemoglobin 31.1 25-34 pg Mean Corpuscular Hemoglobin Concent 33.9 32-36 g/dl Platelet Count 333 130-400 K/uL Mean Platelet Volume 9.2 7.4-10.4 fL RDW Standard Deviation 48.6 36.4-46.3 fL RDW Coefficient of Variation 14.4 11.5-14.5 % Neutrophils % (Manual) 30.4 % Lymphocytes % (Manual) 56.5 % Variant Lymphocytes % (manual) 12.2 % Monocytes % (Manual) 0.9 % Neutrophils # (Manual) 3.75 1.4-6.5 K/uL Total Absolute Neutrophils 3.75 1.4-6.5 K/uL Lymphocytes # (Manual) 6.97 1.2-3.4 K/uL Absolute Variant Lymphocytes 1.51 K/uL Total Absolute Lymphocytes 8.48 1.2-3.4 K/uL Monocytes # (Manual) 0.11 0.11-0.59 K/uL Prothrombin Time 10.0 9.0-12.0 SECONDS Prothromb Time International Ratio 0.9 0.9-1.1 Activated Partial Thromboplast Time 23.0 21.0-31.0 SECONDS Partial Thromboplastin Ratio 0.9 Sodium Level 140 136-145 mmol/L Potassium Level 3.6 3.5-5.1 mmol/L Chloride Level 106 98-107 mmol/L Carbon Dioxide Level 24 21-32 mmol/L Anion Gap 10.0 3-11 mmol/L Blood Urea Nitrogen 20 7-18 mg/dl Creatinine 0.67 0.60-1.20 mg/dl Est Creatinine Clear Calc Drug Dose 75.0 ml/min Estimated GFR () 108.4 Estimated GFR (Non- 93.5 BUN/Creatinine Ratio 30.1 10-20 Random Glucose 111 70-99 mg/dl Calcium Level 9.1 8.5-10.1 mg/dl Total Bilirubin 0.3 0.2-1 mg/dl Direct Bilirubin < 0.1 0-0.2 mg/dl Aspartate Amino Transf (AST/SGOT) 20 15-37 U/L Alanine Aminotransferase (ALT/SGPT) 25 12-78 U/L Alkaline Phosphatase 70 45-117 U/L Total Creatine Kinase 140 26-192 U/L Creatine Kinase MB 2.0 0.5-3.6 ng/ml Creatine Kinase MB Ratio 1.4 0-3.0 Troponin I < 0.015 0-0.045 ng/ml Total Protein 7.6 6.4-8.2 gm/dl Albumin 3.7 3.4-5.0 gm/dl Lipase 194 73-393 U/L Urine Color YELLOW Urine Appearance CLEAR CLEAR Urine pH 5.5 4.5-7.5 Urine Specific [place] 1.023 1.000-1.030 Urine Protein NEG NEG Urine Glucose (UA) NEG NEG Urine Ketones 1+ NEG Urine Occult Blood NEG NEG Urine Nitrite NEG NEG Urine Bilirubin NEG NEG Urine Urobilinogen NEG NEG Urine Leukocyte Esterase NEG NEG Diagnostic Radiology CHEST ONE VIEW PORTABLE FINDINGS: The lungs are clear. Cardiac silhouette is normal in size. No pleural effusions. No pneumothorax. IMPRESSION: No acute process. EKG Normal sinus rhythm Normal ECG When compared with ECG of 13-JUN-2017 07:49, No significant change was found Confirmed by KARENA PIMENTEL ([id number]) on 08/21/2017 1:25:10 PM Impression Assessment and Plan Ms. Drake is a 62 y/o female with PMHx of NSTEMI S/P ALBERTO (January 2017), HTN, HLD , Hiatal Hernia, and Duodenal Ulcer Perforation (2013) who presents to the ED c/ o midsternal CP, N/V, and dizziness that started this AM. Chest Pain R/O ACS: - Given recent history will trend cardiac enzymes and heart rhythm monitoring -- Follows with Dr. James and will request consultation - Question more of a GI component given burning pain - possible esophageal spasm /GERD - H/O hiatal hernia/ulcer - Guaiac stool and monitor H&H - Pepcid x 1 dose now and continue in AM - Consult cardiology - did not place stress echo - appreciate need for further work-up? suspect more GI component Lightheaded/Dizziness: - Possible mild dehydration? Given history of duodenal ulcer will obtain repeat CBC to evaluate H&H - Monitor rhythm for possible arrhythmia - Ear canals clear and TMs normal - does have a mild leukocytosis but reports no URI symptoms - Hydrate with NSS at 100 mL/hr - If unresolved consider Meclizine PRN NSTEMI S/P ALBERTO (January 2017): - Reports only takes ASA 81 mg daily - has been educated on BB, ACEI, Statin, Plavix -- BB, ACEI, Statin D/C'd due to fatigue and muscle aches -- Stopped Plavix on her own - Echo (January) - EF 55-60% without diastolic dysfunction; mid inferolateral wall hypokinesis; mild MR - Cath - Subtotal proximal L circumflex marginal occlusion with stent placed; moderate LAD stenosis without physiological significance HLD: - Obtain lipid panel HTN: - Some elevated readings but reporting good control as outpatient - continue to monitor DVT Prophylaxis: SCDs/Ambulation Code Status: FULL RESUSCITATION Disposition: - If remains stable overnight - likely D/C in AM - Consideration for outpatient GI consultation - saw Dr. Omalley in past Attending Addendum: I have physically seen and examined this patient, have directed the physician assistants medical activities, and agree with the H&P as noted above with the following exceptions as noted. The patient is awake, alert and oriented 3, well-developed and well-nourished , normocephalic and atraumatic, lying in bed and in no acute distress. HEENT--PERRL, EOMI, mucous membranes and oropharynx dry. Neck--supple, no JVD or bruits, thyroid normal, trachea midline, no adenopathy. Heart--normal S1 and S2, no extra beats, no murmurs, rubs or gallops. Lungs--clear bilaterally with good air movement, no respiratory distress, no accessory muscle use. Abdomen--normal bowel sounds and soft, nontender and nondistended, no hernias or masses, no organomegaly. Extremities--no cyanosis, clubbing or edema. There are good distal pulses b/l. Dermatologic--normal skin turgor, normal color, warm and dry, no abnormal lymph nodes, no rash. Neurologic--cranial nerves II through XII grossly intact. Rheumatologic--normal range of motion, nontender, muscles and joints. Psychiatric--normal affect. Assessment and Plan: Precordial chest pain/CAD/hypertension/NSTEMI with drug-eluting stent 02/10-- The patient will be admitted to telemetry for serial cardiac enzymes, cardiac rhythm monitoring and a 2-D echocardiogram with Dopplers. Continue aspirin 81 mg by mouth daily Check a fasting lipid profile and hemoglobin A1c. Consult her informatics nurse Dr. James. Lightheadedness/dizziness-- NSS at 100 ML's per hour. Repeat labs in a.m. Level of Care Telemetry Advanced Directives Existing Advance Directive: No Existing Living Will: No Existing Power of Vest Maker: Yes Resuscitation Status FULL RESUSCITATION VTE Prophylaxis VTE Risk Assessment Done? Y/N: Yes Risk Level: Moderate Given or contraindicated: SCD's Social Service Consult None Apply
[2017-08-21 17:00] VITALS: O2SAT 94
[2017-08-21] MEDS: SODIUM CHLORIDE 0.9% 1000ML 1,000 ML IV SCH (17:50)
[2017-08-21 18:15] VITALS: BP 119/72; PULSE 63; TEMP 36.4; O2SAT 94
[2017-08-21 19:01] LABS: HEMATOCRIT 41.8 % (37-47); MEAN CELL VOLUME 92.1 fL (80-100); MEAN CORPUSCULAR HEMOGLOBIN 30.4 pg (25-34); MEAN PLATELET VOLUME 9.1 fL (7.4-10.4); PLATELET COUNT 312 K/uL (130-400); RED BLOOD COUNT 4.54 M/uL (4.2-5.4); WHITE BLOOD COUNT 12.62 K/uL (4.8-10.8)
[2017-08-21 19:26] VITALS: BP 122/77; PULSE 57; TEMP 36.4; O2SAT 97
[2017-08-21] MEDS ORDERED: IV FLUIDS COMPLETED PRN (20:15)
[2017-08-21 23:40] VITALS: BP 119/73; PULSE 59; TEMP 36.6; O2SAT 95
[2017-08-22] MEDS: SODIUM CHLORIDE 0.9% 1000ML 1,000 ML IV SCH (03:25)
[2017-08-22 04:18] VITALS: BP 106/69; PULSE 60; TEMP 36.4; O2SAT 98
[2017-08-22 06:10] LABS: HEMATOCRIT 39.8 % (37-47); MEAN CELL VOLUME 92.8 fL (80-100); MEAN CORPUSCULAR HEMOGLOBIN 28.9 pg (25-34); MEAN CORPUSCULAR HGB CONC 31.2 g/dl (32-36); PLATELET COUNT 286 K/uL (130-400); RED BLOOD COUNT 4.29 M/uL (4.2-5.4); WHITE BLOOD COUNT 10.55 K/uL (4.8-10.8)
[2017-08-22 06:42] LABS: BUN/CREATININE RATIO 19.1 (10-20); CALCIUM 8.3 mg/dl (8.5-10.1); CREATININE 0.69 mg/dl (0.60-1.20); POTASSIUM 4.1 mmol/L (3.5-5.1)
[2017-08-22 07:20] VITALS: BP 113/62; PULSE 57; TEMP 36.5; O2SAT 96
[2017-08-22] MEDS ORDERED: FAMOTIDINE 20 MG TAB PO SCH (09:00)
[2017-08-22] MEDS ORDERED: ASPIRIN 81 MG ECTAB PO SCH (09:00)
[2017-08-22 11:39] VITALS: BP 132/82; PULSE 65; TEMP 36.7; O2SAT 98
--- NOTE | 2017-08-22 12:23 | Cardiology Consultation ---
Cardiology Consultation Date of Consultation: Aug 22, 2017. Requesting Physician: Dr. Hurt Attending Physician: Dr. James Reason for Consultation: Chest pain Pt evaluation today including: conversation w/ patient, physical exam, chart review, lab review, review of studies, review of inpatient medication list, conversation w/ attending History of Present Illness Mrs. Drake is a 62 year old female with a medical history significant for CAD with non-ST elevation VA with ALBERTO OM (02/05/17), mild mitral regurgitation, dyslipidemia, GERD and history of ruptured duodenal ulcer who was admitted to [facility] on 08/21/17 with chest pain, nausea and dizziness. Her cardiac history dates back to 02/05/17 when she presented to the emergency department with prolonged episode of chest pain with radiation into bilateral shoulder, neck and midscapular region. Her troponin I was elevated and electrocardiogram showed inferior and anterolateral ST segment depressions. She had a 4 beat run of nonsustained ventricular tachycardia. She subsequently underwent cardiac catheterization with the major left circumflex marginal branch noted to have 95-99% subtotal proximal stenosis. This was stented with a 3 x 18 mm resolute drug-eluting stent. She also had moderate LAD disease, FFR was performed and it was found to be not physiologically significant at 087. Echocardiogram following her cardiac cath noted normal LV size and systolic function with an estimated ejection fraction of 55-60%. Her mid inferolateral wall appeared hypokinetic. She was initiated on medical therapy with metoprolol succinate 25 mg daily, atorvastatin 80 mg daily, Plavix 75 mg daily, and lisinopril 2.5 mg daily. When seen in the cardiology clinic for hospital followup she complained of fatigue and her lisinopril and metoprolol were discontinued. When seen in the cardiology clinic on 07/21/17 she admitted to discontinuing some of her medications at her own discretion including Plavix and atorvastatin due to myalgias. She was advised to restart her antiplatelet medications. She refused trial of a different statin medication. Yesterday morning (08/21/17) while at work she suddenly developed dizziness which she describes as a spinning sensation and nausea. She developed a burning chest discomfort under her left breast. She also had pain across her shoulder blades. She took a nitroglycerin and her chest and shoulder discomfort resolved quickly. Her nausea and dizziness persisted. She vomited once in the emergency department and then her nausea and dizziness resolved. She denies having history of vertigo. She has not had any recurrent chest pain. Her electrocardiogram upon admission showed no evidence of ischemic changes and her cardiac enzymes have been undetectable. She has had intermittent episodes of chest discomfort over the past several months. Her pain is typically a burning sensation under her left breast or midepigastric region. It is nonexertional and usually goes away if she massages the area. It is different than the pain that she experienced with her myocardial infarction. She denies exertional chest pain, dyspnea, orthopnea, PND peripheral edema, palpitations, lightheadedness, presyncope or syncope. She denies bleeding complaints including melena, hematochezia or hematuria. She states as an outpatient she is only 2 aspirin 81 mg daily. She did not restart Plavix, she was worried it was contributing to her myalgias. She reluctant to take a statin medication due to the potential side effects she has read about. The remainder of her review of system is unremarkable. Family History Cancer Father with history of VA in 50s. Social History Smoking Status: Never Smoker History of Alcohol Use: No She is . 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 No history of tobacco use. No illegal drug use. Review of Systems Cardiac: + chest pain Allergies Coded Allergies: No Known Allergies (Verified , 08/21/17) Medications Current Inpatient Medications Medications (Trade) Dose Ordered Sig/Forest Route Start Time Stop Time Status Last Admin Dose Admin Sodium Chloride 1,000 ml @ 100 mls/hr Q10H IV 08/21/17 15:56 09/20/17 15:55 08/22/17 03:25 100 MLS/HR Acetaminophen (Tylenol Tab) 650 mg Q4H PRN PO 08/21/17 16:00 09/20/17 15:59 Al Hydrox/Mg Hydrox/Simethicone (Maalox Max Susp) 15 ml Q4H PRN PO 08/21/17 16:00 09/20/17 15:59 Magnesium Hydroxide (Milk Of Magnesia Susp) 30 ml Q12H PRN PO 08/21/17 16:00 09/20/17 15:59 Ondansetron HCl (Zofran Inj) 4 mg Q6H PRN IV 08/21/17 16:00 09/20/17 15:59 Nitroglycerin (Nitrostat Tab) 0.4 mg UD PRN SL 08/21/17 16:00 09/20/17 15:59 Aspirin (Ecotrin Tab) 81 mg QAM PO 08/22/17 09:00 09/21/17 08:59 08/22/17 07:49 81 MG Polyethylene (Miralax Powder Packet) 17 gm DAILY PRN PO 08/21/17 16:00 09/20/17 15:59 Famotidine (Pepcid Tab) 20 mg QAM PO 08/22/17 09:00 09/21/17 08:59 08/22/17 07:49 20 MG Miscellaneous (Iv Fluids Completed) 1 ea PRN PRN N/A 08/21/17 20:15 08/21/18 20:14 Physical Exam Vital Signs Past 12 Hours Date Time Temp Pulse Resp B/P (MAP) Pulse Ox O2 Delivery O2 Flow Rate FiO2 08/22/17 08:00 Room Air 08/22/17 07:20 36.5 57 17 113/62 (79) 96 Room Air 08/22/17 04:18 36.4 60 20 106/69 (81) 98 Room Air 08/22/17 04:00 Room Air 08/21/17 23:59 Room Air 08/21/17 23:40 36.6 59 20 119/73 (88) 95 Room Air General: No acute distress. Alert and oriented. HEENT: Head is normal. PERRLA. EOMI. Sclera anicteric. Ears, nose and throat unremarkable. Neck: Supple without JVD or carotid bruit. Lungs: Clear to auscultation bilaterally without rales, rhonchi or wheezes. Cardiac: Regular rate and rhythm. S1 and S2 are normal. No appreciable murmur, gallop or rub. Abdomen: Soft and nontender. Bowel sounds present. No mass. No abdominal bruit. Extremities: No cyanosis, clubbing or peripheral edema. Peripheral pulses intact. Skin: No rash. Normal turgor. Neurologic: No focal deficits. Psychiatric: Affect appropriate. Data Laboratory Results: Last 24 Hours Test 08/21/17 13:20 08/21/17 14:10 08/21/17 18:54 08/22/17 01:05 White Blood Count 12.34 K/uL 12.62 K/uL Red Blood Count 4.44 M/uL 4.54 M/uL Hemoglobin 13.8 g/dL 13.8 g/dL Hematocrit 40.7 % 41.8 % Mean Corpuscular Volume 91.7 fL 92.1 fL Mean Corpuscular Hemoglobin 31.1 pg 30.4 pg Mean Corpuscular Hemoglobin Concent 33.9 g/dl 33.0 g/dl Platelet Count 333 K/uL 312 K/uL Mean Platelet Volume 9.2 fL 9.1 fL RDW Standard Deviation 48.6 fL 49.1 fL RDW Coefficient of Variation 14.4 % 14.4 % Neutrophils % (Manual) 30.4 % Lymphocytes % (Manual) 56.5 % Variant Lymphocytes % (manual) 12.2 % Monocytes % (Manual) 0.9 % Neutrophils # (Manual) 3.75 K/uL Total Absolute Neutrophils 3.75 K/uL Lymphocytes # (Manual) 6.97 K/uL Absolute Variant Lymphocytes 1.51 K/uL Total Absolute Lymphocytes 8.48 K/uL Monocytes # (Manual) 0.11 K/uL Prothrombin Time 10.0 SECONDS Prothromb Time International Ratio 0.9 Activated Partial Thromboplast Time 23.0 SECONDS Partial Thromboplastin Ratio 0.9 Sodium Level 140 mmol/L Potassium Level 3.6 mmol/L Chloride Level 106 mmol/L Carbon Dioxide Level 24 mmol/L Anion Gap 10.0 mmol/L Blood Urea Nitrogen 20 mg/dl Creatinine 0.67 mg/dl Est Creatinine Clear Calc Drug Dose 75.0 ml/min Estimated GFR () 108.4 Estimated GFR (Non- 93.5 BUN/Creatinine Ratio 30.1 Random Glucose 111 mg/dl Calcium Level 9.1 mg/dl Total Bilirubin 0.3 mg/dl Direct Bilirubin < 0.1 mg/dl Aspartate Amino Transf (AST/SGOT) 20 U/L Alanine Aminotransferase (ALT/SGPT) 25 U/L Alkaline Phosphatase 70 U/L Total Creatine Kinase 140 U/L Creatine Kinase MB 2.0 ng/ml Creatine Kinase MB Ratio 1.4 Troponin I < 0.015 ng/ml < 0.015 ng/ml < 0.015 ng/ml Total Protein 7.6 gm/dl Albumin 3.7 gm/dl Lipase 194 U/L Urine Color YELLOW Urine Appearance CLEAR Urine pH 5.5 Urine Specific [place] 1.023 Urine Protein NEG Urine Glucose (UA) NEG Urine Ketones 1+ Urine Occult Blood NEG Urine Nitrite NEG Urine Bilirubin NEG Urine Urobilinogen NEG Urine Leukocyte Esterase NEG Test 08/22/17 05:26 White Blood Count 10.55 K/uL Red Blood Count 4.29 M/uL Hemoglobin 12.4 g/dL Hematocrit 39.8 % Mean Corpuscular Volume 92.8 fL Mean Corpuscular Hemoglobin 28.9 pg Mean Corpuscular Hemoglobin Concent 31.2 g/dl RDW Standard Deviation 50.1 fL RDW Coefficient of Variation 14.6 % Platelet Count 286 K/uL Mean Platelet Volume 9.0 fL Sodium Level 142 mmol/L Potassium Level 4.1 mmol/L Chloride Level 111 mmol/L Carbon Dioxide Level 24 mmol/L Anion Gap 7.0 mmol/L Blood Urea Nitrogen 13 mg/dl Creatinine 0.69 mg/dl Est Creatinine Clear Calc Drug Dose 72.8 ml/min Estimated GFR () 107.4 Estimated GFR (Non- 92.6 BUN/Creatinine Ratio 19.1 Random Glucose 96 mg/dl Calcium Level 8.3 mg/dl Triglycerides Level 117 mg/dl Cholesterol Level 238 mg/dl HDL Cholesterol 59 mg/dl LDL Cholesterol, Calculated 156 mg/dl VLDL Cholesterol, Calculated 23 mg/dl Cholesterol/HDL Ratio 4.0 Chest x-ray 08/21/17: no acute process. ECG 08/21/17: normal sinus rhythm at 65 bpm. ECG 08/22/17: normal sinus rhythm at 61 bpm. Telemetry reviewed: sinus rhythm without arrhythmia or pauses. Assessment & Plan Patient was discussed with Dr. James. 1. Chest pain: Patient has a history of coronary artery disease with NSTEMI and ALBERTO placement on 02/05/17. She was admitted to [facility] on 08/21/17 after an episode of atypical chest pain, vertigo symptoms and nausea. Her cardiac enzymes have been undetectable since admission and there are no ischemic changes on electrocardiogram. She has been having intermittent episodes of atypical chest pain dissimilar to the chest pain she experienced with her myocardial infarction. Her chest discomfort is likely noncardiac in nature but would recommend stress echocardiogram to rule out cardiac ischemia. 2. Coronary artery disease: History of NSTEMI with ALBERTO placement to left circumflex marginal branch on 02/05/17. She also had moderate LAD disease on cardiac catheterization which was FFR negative. As above chest pain is likely noncardiac but recommend stress echo to further rule out cardiac ischemia. Patient has been noncompliant with her cardiac medications and has only been taking aspirin since February. Discussed the importance of dual antiplatelet therapy for at least one year to prevent stent thrombosis. Recommend restarting Plavix 75 mg daily until at least 02/05/18. Continue aspirin therapy indefinitely. Beta tashi and LAYA inhibitor have been discontinued due to fatigue. 3. Dyslipidemia: Her LDL cholesterol is significantly elevated at 156. She stopped atorvastatin on her own due to myalgias. Recommend trial of low dose Crestor dosed every other day. She is reluctant to start a statin due to concerns about side effects. This can be discussed further as an outpatient. The patient was seen and examined by me in conjunction with . Agree with above history. . Agree with above exam. The above assessment and plan were discussed by me an Ms. Nelson. The assessment and plan were made by both of us after discussion of the history and available test results. The patient was admitted with symptoms consistent with vertigo. Accompanied by atypical chest discomfort. Different than her prior anginal symptoms. Cardiac enzymes negative for myocardial injury. Electrocardiogram without ischemic changes. After the above Consult was performed the patient underwent a stress echocardiogram. This was supervised directly by me. The resting echo showed normal LV systolic function wall motion. Resting electrocardiogram was normal. The patient exercised 6 minutes of the standard Mumtaz protocol attaining a maximum heart rate of 153 beats per minute. This was 97% maximum predicted heart rate. She had no complaints of any type of chest pain during or following exercise. Exercise terminated secondary to fatigue. Following exercise no ischemic ST-T abnormalities. Post exercise echo images revealed hyperdynamic response in all LV segments. There was a decrease in the end systolic volume of the left ventricle compared to the resting echo images. She did have a hypertensive blood pressure response to exercise. The conclusion is normal maximal stress echocardiogram. No ECG or echocardiographic evidence of exercise-induced myocardial ischemia. The results were discussed aches extensively by me with the patient. The patient was advised to take aspirin and clopidogrel daily. She is agreeable to restarting clopidogrel. If he has any adverse reactions to it she will notify me. At this time the patient is reluctant to restart any of her other medications. It was recommended to her that she restart statin therapy with every other day or every 3rd day low-dose rosuvastatin. She will consider this. She will have an outpatient cardiology follow-up visit with me within the next few weeks.
--- NOTE | 2017-08-22 12:25 | Hospitalist Progress Note ---
Hospitalist Progress Note Date of Service Aug 22, 2017. (Jana Guadarrama CRNP) Subjective Pt evaluation today including: conversation w/ patient, physical exam, chart review, lab review, review of inpatient medication list Voiding: no voiding problems Ms. Drake feels well this morning except for some hunger pangs from being NPO over night. She has no further chest pain or pressure, nausea, or dizziness. Constitutional: No fever, No chills Respiratory: No cough, No sputum, No wheezing, No shortness of breath Cardiovascular: No chest pain, No palpitations Abdomen: No pain, No nausea, No vomiting, No diarrhea All Other Systems: Reviewed and Negative (Jana Guadarrama CRNP) Medications Medications (Trade) Dose Ordered Sig/Forest Route Start Time Stop Time Status Last Admin Dose Admin Al Hydroxide/Mg Hydroxide (Maalox Susp) 30 ml NOW STAT PO 08/21/17 13:09 08/21/17 13:10 DC 08/21/17 13:19 30 ML Ondansetron HCl (Zofran Inj) 4 mg NOW STAT IV 08/21/17 13:09 08/21/17 13:11 DC 08/21/17 13:19 4 MG Aspirin (Aspirin Chew) 324 mg NOW STAT PO 08/21/17 13:09 08/21/17 13:11 DC 08/21/17 13:19 324 MG Sodium Chloride 1,000 ml @ 100 mls/hr Q10H IV 08/21/17 15:56 09/20/17 15:55 08/22/17 03:25 100 MLS/HR Aspirin (Ecotrin Tab) 81 mg QAM PO 08/22/17 09:00 09/21/17 08:59 08/22/17 07:49 81 MG Famotidine (Pepcid Tab) 20 mg NOW ONCE PO 08/21/17 16:00 08/21/17 16:51 DC 08/21/17 21:02 20 MG Famotidine (Pepcid Tab) 20 mg QAM PO 08/22/17 09:00 09/21/17 08:59 08/22/17 07:49 20 MG (Jana Guadarrama CRNP) Objective Vital Signs Date Time Temp Pulse Resp B/P (MAP) Pulse Ox O2 Delivery O2 Flow Rate FiO2 08/22/17 12:00 Room Air 08/22/17 11:39 36.7 65 17 132/82 (99) 98 Room Air 08/22/17 08:00 Room Air 08/22/17 07:20 36.5 57 17 113/62 (79) 96 Room Air 08/22/17 04:18 36.4 60 20 106/69 (81) 98 Room Air 08/22/17 04:00 Room Air 08/21/17 23:59 Room Air 08/21/17 23:40 36.6 59 20 119/73 (88) 95 Room Air 08/21/17 20:00 Room Air 08/21/17 19:26 36.4 57 20 122/77 (92) 97 Room Air 08/21/17 18:15 36.4 63 20 119/72 (88) 94 Room Air 08/21/17 17:00 60 18 140/78 94 Room Air 08/21/17 16:00 60 18 144/89 96 Room Air 08/21/17 15:58 36.7 64 16 129/82 98 Room Air 08/21/17 14:13 59 16 143/82 100 Room Air 08/21/17 13:38 61 08/21/17 13:07 100 Room Air 08/21/17 13:07 100 Room Air 08/21/17 12:59 36.7 64 18 128/68 100 Room Air (Jana Guadarrama CRNP) Physical Exam Notes: General: no distress Eyes: normal inspection, PERLL Respiratory: chest non tender, clear to auscultation, normal breath sounds, no respiratory distress, no accessory muscle use Cardiac: regular rate and rhythm, no rub or gallop, no murmur, no edema, no jvd GI/: active bowel sounds, no abd pain or tenderness, soft, non distended Extremities: normal range of motion, normal strength, non tender Neuro/Psych: alert and oriented x 3, normal mood and affect Skin: normal color, dry (Jana Guadarrama CRNP) Laboratory Results Last 24 Hours Test 08/21/17 13:20 08/21/17 14:10 08/21/17 18:54 08/22/17 01:05 White Blood Count 12.34 K/uL 12.62 K/uL Red Blood Count 4.44 M/uL 4.54 M/uL Hemoglobin 13.8 g/dL 13.8 g/dL Hematocrit 40.7 % 41.8 % Mean Corpuscular Volume 91.7 fL 92.1 fL Mean Corpuscular Hemoglobin 31.1 pg 30.4 pg Mean Corpuscular Hemoglobin Concent 33.9 g/dl 33.0 g/dl Platelet Count 333 K/uL 312 K/uL Mean Platelet Volume 9.2 fL 9.1 fL RDW Standard Deviation 48.6 fL 49.1 fL RDW Coefficient of Variation 14.4 % 14.4 % Neutrophils % (Manual) 30.4 % Lymphocytes % (Manual) 56.5 % Variant Lymphocytes % (manual) 12.2 % Monocytes % (Manual) 0.9 % Neutrophils # (Manual) 3.75 K/uL Total Absolute Neutrophils 3.75 K/uL Lymphocytes # (Manual) 6.97 K/uL Absolute Variant Lymphocytes 1.51 K/uL Total Absolute Lymphocytes 8.48 K/uL Monocytes # (Manual) 0.11 K/uL Prothrombin Time 10.0 SECONDS Prothromb Time International Ratio 0.9 Activated Partial Thromboplast Time 23.0 SECONDS Partial Thromboplastin Ratio 0.9 Sodium Level 140 mmol/L Potassium Level 3.6 mmol/L Chloride Level 106 mmol/L Carbon Dioxide Level 24 mmol/L Anion Gap 10.0 mmol/L Blood Urea Nitrogen 20 mg/dl Creatinine 0.67 mg/dl Est Creatinine Clear Calc Drug Dose 75.0 ml/min Estimated GFR () 108.4 Estimated GFR (Non- 93.5 BUN/Creatinine Ratio 30.1 Random Glucose 111 mg/dl Calcium Level 9.1 mg/dl Total Bilirubin 0.3 mg/dl Direct Bilirubin < 0.1 mg/dl Aspartate Amino Transf (AST/SGOT) 20 U/L Alanine Aminotransferase (ALT/SGPT) 25 U/L Alkaline Phosphatase 70 U/L Total Creatine Kinase 140 U/L Creatine Kinase MB 2.0 ng/ml Creatine Kinase MB Ratio 1.4 Troponin I < 0.015 ng/ml < 0.015 ng/ml < 0.015 ng/ml Total Protein 7.6 gm/dl Albumin 3.7 gm/dl Lipase 194 U/L Urine Color YELLOW Urine Appearance CLEAR Urine pH 5.5 Urine Specific Hustle 1.023 Urine Protein NEG Urine Glucose (UA) NEG Urine Ketones 1+ Urine Occult Blood NEG Urine Nitrite NEG Urine Bilirubin NEG Urine Urobilinogen NEG Urine Leukocyte Esterase NEG Test 08/22/17 05:26 White Blood Count 10.55 K/uL Red Blood Count 4.29 M/uL Hemoglobin 12.4 g/dL Hematocrit 39.8 % Mean Corpuscular Volume 92.8 fL Mean Corpuscular Hemoglobin 28.9 pg Mean Corpuscular Hemoglobin Concent 31.2 g/dl RDW Standard Deviation 50.1 fL RDW Coefficient of Variation 14.6 % Platelet Count 286 K/uL Mean Platelet Volume 9.0 fL Sodium Level 142 mmol/L Potassium Level 4.1 mmol/L Chloride Level 111 mmol/L Carbon Dioxide Level 24 mmol/L Anion Gap 7.0 mmol/L Blood Urea Nitrogen 13 mg/dl Creatinine 0.69 mg/dl Est Creatinine Clear Calc Drug Dose 72.8 ml/min Estimated GFR () 107.4 Estimated GFR (Non- 92.6 BUN/Creatinine Ratio 19.1 Random Glucose 96 mg/dl Calcium Level 8.3 mg/dl Triglycerides Level 117 mg/dl Cholesterol Level 238 mg/dl HDL Cholesterol 59 mg/dl LDL Cholesterol, Calculated 156 mg/dl VLDL Cholesterol, Calculated 23 mg/dl Cholesterol/HDL Ratio 4.0 (Jana Guadarrama CRNP) Assessment and Plan Ms. Drake is a 62 year old woman here for chest pain at rest relieved with 1 nitro. Chest pain r/o acute coronary syndrome - Chest pain has resolved. She is being followed inpatient by Dr. James and will have a stress echo today. Troponins have been negative x3. History of NSTEMI - Ms. Drake had a recent NSTEMI in January of this year with cath and ALBERTO. -Echo (January) - EF 55-60% without diastolic dysfunction; mid inferolateral wall hypokinesis; mild MR - Cath - Subtotal proximal L circumflex marginal occlusion with stent placed; moderate LAD stenosis without physiological significance She is followed outpatient by Dr. James. She says that he is aware that she quit taking her plavix and statin in February following the NSTEMI. Continue ASA. Dizziness - resolved, possibly secondary to dehydration. Continue NSS while NPO. Dyslipidemia - LDL 156, start every other day Crestor per cardiology recommendation Resuscitation status: full resuscitation DVT prophylaxis: SCDS, encourage ambulation (Jana Guadarrama CRNP) Attending Attestation: Pt seen/examined, chart reviewed, care plan d/w GUS Guadarrama. I agree w/ the gilbert components of her documentation. No further dizziness, chest pain, nausea, etc. Feels good. Tele normal. VSS gen - nad heart - RRR lungs - CTA b/l abd - soft, NT ext - no edema Await stress echo results. If negative can d/c home. Parker Mariano MD (Parker Mariano MD)
--- NOTE | 2017-08-22 13:41 | EXERCISE STRESS ECHO ---
*NOTICE TO RECEIVING [employer] This information is strictly Confidential and protected under [place] law. [place] law prohibits you from making any further disclosure of this information unless further disclosure is expressly permitted by the written consent of the person to whom it pertains or is authorized by law. A general authorization for the release of medical or other information is not sufficient for this purpose. Hospital accepts no responsibility if the information is made available to any other person, INCLUDING THE PATIENT. Interpretation Summary * Name: CHANTEL ISRAEL Study Date: 08/22/2017 11:48 AM BP: 139/85 mmHg * Patient Location: C.2T\S\S230\S\2 HR: 65 * : 1955 (M/d/yyyy) Gender: Female Height: 62 in * Age: 62 yrs Ethnicity: [place] Weight: 138 lb * Ordering Physician: Emmanuel James * Referring Physician: Self, Referred * Performed By: Vilma Reynolds, [facility] * * Reason For Study: CHEST PAIN * BSA: 1.6 m2 * Hypertensive systolic BP response to exercise. * This was a normal stress echocardiogram. * The stress echocardiogram is negative for inducible ischemia. * The stress ECG response was normal * Exercise capacity is above average. * RESTING STUDY: Normal left ventricular cavity size, myocardial thickness, wall motion, and systolic function. * All left ventricular wall segments became hyperdynamic with stress, with appropriate decrease in left ventricular chamber dimension. * -- Conclusions -- * No segmental left ventricular wall motion abnormalities are noted. Procedure Details * ECHOEX, CPT #[id number] Left Ventricle * The left ventricle is normal in size. * There is normal left ventricular wall thickness. * Left ventricular systolic function is normal. * No segmental left ventricular wall motion abnormalities are noted. * Ejection Fraction = 55-60%. * Resting wall motion: Normal. Stress wall motion: Appropriate increase in Left ventricular systolic function and decrease in cavity size. No stress induced segmental wall motion abnormalities. * The left ventricular ejection fraction increases normally with stress. The left ventricular end-systolic cavity size reduces post-stress (normal response). The left ventricular wall motion with stress is normal. Stress Parameters * Normal baseline electrocardiogram. * The stress ECG response was normal * The stress portion of this study was personally supervised by the undersigned interpreting physician. * Rest heart rate was '65' BPM. * Rest blood pressure was '139/85' * Maximum heart rate achieved was 153 bpm. * Maximum heart rate was 97 % of maximum age-predicted heart rate. * Maximum blood pressure was '215/88' * Total exercise time was '06:00' * Maximum exercise MET level achieved was '7.00' METS * Maximum treadmill speed was '2.50' miles per hour. * Maximum treadmill elevation was '12.00'% grade. * Exercise was stopped due to fatigue.
[2017-08-22] MEDS ORDERED: ROSU20TA PO (14:48)
[2017-08-22] MEDS ORDERED: NTRSLP4 SL (14:48)
[2017-08-22] MEDS ORDERED: OMEP40CA41 PO (14:48)
--- NOTE | 2017-08-22 14:52 | Discharge Instructions ---
Discharge Instructions Date of Service Aug 22, 2017. Admission Reason for Admission: Chest Pain Discharge Discharge Diagnosis / Problem: chest pain Discharge Goals Goal(s): Decrease discomfort, Improve disease control Activity Recommendations Activity Limitations: resume your previous activity . Instructions / Follow-Up Instructions / Follow-Up You will need to follow up with cardiology and see your primary care doctor next week. Your stress echocardiogram was normal, this episode my be due to your history of gastroesophageal reflux which is why you will be starting Prilosec going home. Because you have had a history of NSTEMI with a stent, cardiology recommended starting low dose Crestor (a statin) to see if you can tolerate it without side effects. You will take this medication every other day until you follow up with cardiology and then discuss with them how to procede with dosing. Current Hospital Diet Patient's current hospital diet: AHA Diet (Heart Healthy) Discharge Diet Recommended Diet: AHA Diet (Heart Healthy) Procedures Procedures Performed: stress echocardiogram chest x ray Pending Studies Studies pending at discharge: no Laboratory Results Lipid Panel Test 08/22/17 05:26 Range/Units Triglycerides Level 117 0-150 mg/dl Cholesterol Level 238 H 0-200 mg/dl HDL Cholesterol 59 mg/dl Cholesterol/HDL Ratio 4.0 LDL Cholesterol, Calculated 156 mg/dl Medical Emergencies . Who to Call and When: Medical Emergencies: If at any time you feel your situation is an emergency, please call 911 immediately. . Non-Emergent Contact Non-Emergency issues call your: Primary Care Provider Call Non-Emergent contact if: your pain is not controlled, your pain is worsening . Past History Medical & Surgical History: (1) Chest pain (2) GERD (gastroesophageal reflux disease) . "Provider Documentation" section prepared by Jana Guadarrama. ------ Attending Attestation: Pt seen/examined, and discharge care plan d/w DIRECTOR BUSINESS DEVELOPMENTJOSE Guadarrama. I agree w/ her discharge instructions as outlined. Parker Mariano MD . VTE Core Measure Inpt VTE Proph given/why not?: SCD's
--- NOTE | 2017-08-22 15:00 | Discharge Summary ---
Discharge Summary Date of Service Aug 22, 2017. (Jana Guadarrama CRNP) Discharge Summary Admission Date: Aug 21, 2017 at 16:29 Discharge Disposition: Home Principal Diagnosis: Chest Pain Immunizations: Have You Had Influenza Vaccine: No History of Tetanus Vaccine?: Yes History of Pneumococcal: No History of Hepatitis B Vaccine: No Procedures: Stress Echocardiogram - normal study Chest Xray - no acute process Consultations: Dr. James from cardiology (Jana Guadarrama CRNP) Problems/Secondary Diagnoses: 1. Duodenal Ulcer with Perforation (2013) 2. NSTEMI S/P ALBERTO (January 2017) 3. Hiatal Hernia 4. S/P Tubal Ligation 5. h/o esophagitis and gastritis on EGD, 2015 (Parker Mariano MD) Medication Reconciliation New Medications: Omeprazole (Prilosec) 40 Mg Cap 1 CAP PO DAILY for 30 Days, #30 CAP 0 Refills Rosuvastatin Calcium (Crestor) 20 Mg Tab 10 MG PO Q2D for 30 Days, #15 TAB 0 Refills Nitroglycerin (Nitrostat) 0.4 Mg/1 Tab Subl 0.4 MG SL UD PRN for Chest Pain for 30 Days, #1 BTL Continued Medications: Aspirin (Aspirin Ec) 81 Mg Tab 81 MG PO DAILY Discharge Exam Review of Systems: Constitutional: No fever, No chills Respiratory: No cough, No sputum, No shortness of breath, No dyspnea on exertion, No dyspnea at rest Cardiovascular: No chest pain, No palpitations Abdomen: No pain, No nausea, No vomiting Physical Exam: General Appearance: WD/WN, no apparent distress Respiratory/Chest: chest non-tender, lungs clear, normal breath sounds, no respiratory distress Cardiovascular: regular rate, rhythm, no edema, no gallop, no murmur Abdomen / GI: normal bowel sounds, non tender, soft Neurologic/Psychiatric: alert, normal mood/affect, normal reflexes Skin: normal color, warm/dry (Jana Guadarrama CRNP) Hospital Course (1) GERD (gastroesophageal reflux disease) (2) Chest pain (3) Hypercholesteremia Ms. Drake is a 62 year old woman here for chest pain at rest relieved with 1 nitro. Chest pain r/o acute coronary syndrome - Chest pain has resolved. She is being followed inpatient by Dr. James, stress echo was negative. Troponins have been negative x3. History of NSTEMI - Ms. Drake had a recent NSTEMI in January of this year with cath and ALBERTO. -Echo (January) - EF 55-60% without diastolic dysfunction; mid inferolateral wall hypokinesis; mild MR - Cath - Subtotal proximal L circumflex marginal occlusion with stent placed; moderate LAD stenosis without physiological significance She is followed outpatient by Dr. James. She says that he is aware that she quit taking her plavix and statin in February following the NSTEMI. Continue ASA. Dizziness - resolved, possibly secondary to dehydration. NSS while NPO. Dyslipidemia - LDL 156, start every other day Crestor per cardiology recommendation Resuscitation status: full resuscitation DVT prophylaxis: SCDS, encourage ambulation Total Time Spent: Less than 30 minutes This includes examination of the patient, discharge planning, medication reconciliation, and communication with other providers. (Jana Guadarrama CRNP) Attending Attestation: Pt seen/examined, chart reviewed, care plan d/w GUS Guadarrama. I agree w/ the gilbert components of her discharge summary. 62yo female with known CAD who presented with acute onset of dizziness/vertigo/ nausea which then led to chest pain. Work-up during this admission including EKGs, telemetry, cardiac enzymes, and stress echocardiogram were all normal. It is possible the chest pain was GI in origin. She also had a lymphocytosis with atypical lymphs on CBC suggesting a viral process. It was very possible her acute vertigo was viral in origin. We suggested she take a PPI after discharge. In fact, at time of EGD in 10/2016 , it was recommended she take a PPI for life. Exam: gen - NAD heart - RRR lungs - CTA b/l abd - soft, NT, ND, BS+, no HSM ext - no edema Parker Mariano MD (Parker Mariano MD) Discharge Instructions Please refer to the electronic Patient Visit Report (Discharge Instructions) for additional information. (Jana Guadarrama CRNP) Follow-Up within [address] Garcia, PCP Dr. James, [facility] - MondaySeptember 05 at 9:30 am (Parker Mariano MD) Additional Copies To Jazz Garcia M.D.; Emmanuel James M.D.
[2017-08-22 15:22] VITALS: BP 132/82; PULSE 65; TEMP 36.7; O2SAT 98
== END 2017-08-22 16:11 | disposition home or self-care (01) ==
LOC: C.EDB 12:47 → C.2T 16:29 → ENRESERV 16:53
PROVIDERS: ADMIT Hospitalist; ATTEND Internal Medicine
DX: R07.2 Precordial pain (principal); I25.10 Atherosclerotic heart disease of native coronary artery without angina pectoris; I25.2 Old myocardial infarction; I34.0 Nonrheumatic mitral (valve) insufficiency; E78.5 Hyperlipidemia, unspecified; K21.9 Gastro-esophageal reflux disease without esophagitis; R42 Dizziness and giddiness; K44.9 Diaphragmatic hernia without obstruction or gangrene; Z79.82 Long term (current) use of aspirin; Z79.899 Other long term (current) drug therapy

== ENCOUNTER 2022-12-29 11:47 | Observation (INO) ==
--- NOTE | 2022-12-29 14:37 | Electrocardiogram Report ---
Test Reason : Blood Pressure : / mmHG Vent. Rate : 069 BPM Atrial Rate : 069 BPM P-R Int : 154 ms QRS Dur : 082 ms QT Int : 418 ms P-R-T Axes : 051 044 061 degrees QTc Int : 447 ms Normal sinus rhythm Normal ECG When compared with ECG of 22-AUG-2017 06:41, Nonspecific T wave abnormality now evident in Anterior leads Confirmed by Matthieu Acosta ([id number]) on 12/29/2022 2:37:03 PM Referred By: Confirmed By:Matthieu Acosta
--- NOTE | 2022-12-29 14:58 | CT Scan Report ---
CT head/brain wo con CLINICAL HISTORY: 67 years-old Female with STROKE LIKE SYMPTOMS LAST NIGHT-RESOLVED. Acute strokelik e symptoms TECHNIQUE: Multiple axial CT images of the head were obtained without contrast. A dose lowering tech nique was utilized adhering to the principles of ALARA. CT DOSE: 614.27 mGy.cm COMPARISON: None. FINDINGS: No acute intracranial hemorrhage, midline shift, intracranial mass, hydrocephalus, territorial ischem ia or abnormal extra-axial collection. Involutional changes. Mild white matter hypodensities suggesti ve of chronic microvascular ischemic disease. The calvarium is intact. Prior bilateral lens repair. The paranasal sinuses, mastoid air cells, and m iddle ear cavities are clear. IMPRESSION: No acute intracranial abnormality. ACT 112: Negative or not required by law. The above report was generated using voice recognition software. It may contain grammatical, syntax o r spelling errors. Electronically signed by: Bert Jalloh M.D. 12/29/2022 2:56 PM
[2022-12-29 16:04] LABS: Hematocrit (blood only) 44.6 % (37.0-47.0); Hemoglobin 14.9 g/dl (12.0-16.0); Mean Corpuscular Hemoglobin 30.8 pg (25.0-34.0); Mean Corpuscular Hgb Conc 33.4 g/dL (32.0-36.0); Mean Corpuscular Volume 92.1 fL (80.0-100.0); Platelet Count 323 K/uL (130-400); RDW Coefficient of Variation 13.9 % (11.5-14.5); RDW Standard Deviation 47.1 fL (36.4-46.3); Red Blood Count 4.84 M/uL (4.20-5.40)
[2022-12-29 16:36] LABS: Albumin Level 4.3 gm/dl (3.4-5.0); Bilirubin,Total 0.4 mg/dl (0.2-1.0); Calcium 9.6 mg/dl (8.5-10.1); Potassium 4.2 mmol/L (3.5-5.1)
[2022-12-29 16:43] LABS: Albumin Globulin Ratio 1.3 (0.9-2); BUN Creatinine Ratio 24.7 (10-20); Creatinine Clr Calc Pharmacy 64.5 ml/min; Est GFR (African American) 98.1 ml/min; Est GFR (Non-African American) 84.6 ml/min; Globulin 3.4 gm/dl (2.5-4.0); Total Protein 7.7 gm/dl (6.0-8.3)
[2022-12-29 16:51] LABS: Basophils # (auto) 0.05 K/uL (0-0.2); Basophils % (auto) 0.4 %; Eosinophils # (auto) 0.09 K/uL (0-0.50); Eosinophils % (auto) 0.7 %; Immature Granulocytes # (auto) 0.02 K/uL (0.01-0.20); Immature Granulocytes % (auto) 0.2 %; Lymphocytes # (auto) 8.48 K/uL (1.2-3.4); Lymphocytes % (auto) 63.8 %; Monocytes # (auto) 0.57 K/uL (0.11-0.59); Monocytes % (auto) 4.3 %; Neutrophils # (auto) 4.09 K/uL (1.40-6.50); Neutrophils % (auto) 30.6 %
[2022-12-29] MEDS ORDERED: OPTIRAY 320 500ml IV ONE (16:53)
--- NOTE | 2022-12-29 17:14 | CT Scan Report ---
CT angio head w con, CT angio neck with con CLINICAL HISTORY: 67 years-old Female with tia sx yesterday. Acute strokelike symptoms COMPARISON STUDY: Head CT of same day TECHNIQUE: Following the IV administration of 112 cc of Optiray, CT angiogram of the head and neck wa s performed from the aortic arch to the skull vertex. Images are reviewed in the axial, sagittal, and coronal planes. 3-D MIPS images are created and assessed. IV contrast was administered without compl ication. All measurements were obtained according to NASCET criteria. A dose lowering technique was u tilized adhering to the principles of ALARA. CT DOSE: 463.67 mGy.cm FINDINGS: CT ANGIOGRAM OF THE HEAD AND NECK: Three-vessel morphology of the thoracic aortic arch. Patency of the innominate and imaged subclavian arteries. The common carotid arteries are patent. There is moderate atherosclerotic plaque of the car otid bulbs and proximal cervical segments of the internal carotid arteries resulting in less than 50% stenosis bilaterally. The bilateral anterior and middle cerebral arteries are also patent. The verte brobasilar system and posterior cerebral arteries are widely patent. origin of the right military police officer ior cerebral artery. There is no aneurysm, high-grade stenosis, or proximal branch occlusion identifi ed. Dural sinuses appear patent. Lung apices are clear. No pneumothorax. Unremarkable soft tissues. Prior bilateral lens repair. Degen erative changes of the cervical spine. Mild polypoid mucosal thickening of the right maxillary sinus. IMPRESSION: 1. No aneurysm, dissection, high-grade stenosis or arterial occlusion. 2. Moderate atherosclerotic plaque of the carotid bulbs results in less than 50% stenosis bilaterally . ACT 112: Negative or not required by law. The above report was generated using voice recognition software. It may contain grammatical, syntax o r spelling errors. Electronically signed by: Bert Jalloh M.D. 12/29/2022 5:11 PM
[2022-12-29] MEDS ORDERED: ASPIRIN CHEW 324 MG PO STA (17:23)
--- NOTE | 2022-12-29 17:33 | Emergency Department Note ---
Impression & Plan Brain TIA ED Provider Note INFORMANT: Patient ED PROVIDER(S): Noé Gamez DO CHIEF COMPLAINT: TIA PLAN: Disposition: Admission Condition: Good Outpatient prescription management: none Referral: I spoke with the hospitalist, who will see the patient for admission/observation and further evaluation and consultation. MEDICAL DECISION MAKIN-year-old female who presents to the ED with a chief complaint of TIA symptoms. Her symptoms started yesterday. She states that her symptoms occurred around 10 PM while she was taking a shower. She states that she sudde nly felt like she could not feel her arm. She could use it but could not feel it. The patient states that her speech was also slurred and hard to understand and some of the words did not come out appropriately. She states that her was witness to this. The patient decided to go to bed last night instead of come to the hospital. Her symptoms lasted for at least 2 hours until she fell asleep. When she awoke this morning, her symptoms had resolved. She does report a history of a myocardial infarction in the past with a stent. This was in 2017. The patient has not had any symptoms today but contacted her doctor and they referred her here. She has had some intermittent episodes of loss of words and some arm numbness that were brief in nature over the past couple of months. She states that she is supposed be taking aspirin but but does not take any aspirin and did not tolerate cholesterol medications. Her physical exam and neurologic exam today was normal. Her vital signs revealed hypertension. A CT scan of the brain did not show acute process. CT angiogram of the head and neck shows moderate atherosclerotic disease but less than 50% stenosis in the bilateral carotids. Her CBC shows a white blood cell count of 13.3. No clinical symptoms or signs of infection. Chemistry panel did not show electrolyte abnormality, hyperglycemia or kidney dysfunction. EKG showed normal sinus rhythm. The patient was told the results of the test. She does meet moderate risk criteria for stroke. She was treated with aspirin p.o. I spoke to the hospitalist about the patient. She will be seen by the hospitalist for further evaluation and care. Triage Nursing notes reviewed. Vital Signs: reviewed Prior /Outside records reviewed: none Differential diagnosis: Differential includes acute coronary syndrome, myocardial infarction, CVA, TIA, anemia, infection, pneumonia, UTI, pyelonephritis, poor nutrition, dehydration, electrolyte disturbance,hypoglycemia. Diagnostics, as interpreted by me: 12 lead ECG: Normal sinus rhythm at a rate of 69. No ST elevation. No PVCs. Normal QTC. Cardiac Monitoring: Sinus rhythm normal rate. Medical decision rules: ABCD2 Score: 5= moderate risk Imaging studies: Noncontrast CT scan of the brain did not show acute process. No intracranial hemorrhage. Procedures: none. Critical care: none. HPI: See MDM above. PAST MEDICAL HISTORY: See Below PAST SURGICAL HISTORY: See Below SOCIAL HISTORY: See Below HOME MEDICATIONS: See Below ALLERGIES: See Below VITALS: See Below PHYSICAL EXAMINATION: CONSTITUTIONAL/VITAL SIGNS: Reviewed GENERAL: Non-toxic in appearance. INTEGUMENTARY: Warm, dry, and [place]. HEAD: Normocephalic. EYES: without scleral icterus. ENT/OROPHARYNX: clear and moist. RESPIRATORY: No increased work of breathing. Lungs clear. CARDIOVASCULAR: Regular rate. Regular rhythm. GI/ABDOMEN: Soft and nontender. . EXTREMITIES: Normal NEUROLOGICAL: Intact without focal deficits. PSYCHIATRIC: Normal affect. MUSCULOSKELETAL: Normal. TRIAGE NURSING DOCUMENTATION REVIEWED. 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 tendonitis Surgical History History of tubal ligation S/P cholecystectomy S/P colonoscopy Family History Other Diabetes Denies family history of Crohn's disease Colorectal cancer Ulcerative colitis Social History Smoking Status: Never smoker Hx Alcohol Use: No Feels Safe at Home: Yes Allergies Allergies Allergy/AdvReac Type Severity Reaction Status Date / Time Evszosr-PQJ-YpO Reductase Allergy Muscle Pain Verified 09/08/22 09:56 Inhibitor [Sfvsegs-Ckz-Mha Reductase Inhibitor] Home Meds Home Medications Medication Instructions Recorded Confirmed nitroglycerin 0.4 mg sublingual 0.4 mg sublingual Q5M PRN Chest 07/19/19 09/08/22 tablet (Nitrostat) Pain omeprazole 40 mg capsule,delayed 40 mg PO DAILY PRN 05/27/20 09/08/22 release Previous Rx's Medication Instructions Recorded aspirin 81 mg tablet,delayed 81 mg PO DAILY #90 tabs 05/31/20 release (Adult Low Dose Aspirin) Results & Data (ED) Vital Signs Vital Signs - 24 hr 12/29/22 12:01 Temperature 36 C L Temperature Source Temporal Artery Scan Pulse Rate 76 Respiratory Rate 18 Blood Pressure 189/94 H Blood Pressure Mean 125 Pulse Oximetry 100 Oxygen Delivery Method Room Air Sepsis Recent Fever Within 48 Hours No Sepsis New/Unexplained Change in Mental Status No Sepsis Action Taken by Nursing No Action Required Laboratory Data 12/29/22 15:54 12/29/22 15:54 Lab Results 12/29/22 12/29/22 Range/Units 15:54 15:54 WBC 13.30 H (4.8-10.8) K/ul RBC 4.84 (4.20-5.40) M/uL Hgb 14.9 (12.0-16.0) g/dl Hct 44.6 (37.0-47.0) % MCV 92.1 (80.0-100.0) fL MCH 30.8 (25.0-34.0) pg MCHC 33.4 (32.0-36.0) g/dL RDW Std Deviation 47.1 H (36.4-46.3) fL RDW Coeff of [place] 13.9 (11.5-14.5) % Plt Count 323 (130-400) K/uL MPV 9.0 L (9.4-12.4) fL Immature Gran % (Auto) 0.2 % Neut % (Auto) 30.6 % Lymph % (Auto) 63.8 % [place] % (Auto) 4.3 % Eos % (Auto) 0.7 % Baso % (Auto) 0.4 % Neut # (Auto) 4.09 (1.40-6.50) K/uL Lymph # (Auto) 8.48 H (1.2-3.4) K/uL [place] # (Auto) 0.57 (0.11-0.59) K/uL Eos # (Auto) 0.09 (0-0.50) K/uL Baso # (Auto) 0.05 (0-0.2) K/uL Immature Gran # (Auto) 0.02 (0.01-0.20) K/uL Sodium 140 (136-145) mmol/L Potassium 4.2 (3.5-5.1) mmol/L Chloride 107 (98-107) mmol/L Carbon Dioxide 28 (21-32) mmol/L Anion Gap 5 (3-11) BUN 18 (6-23) mg/dl Creatinine 0.73 (0.6-1.2) mg/dl Est Cr Clr Drug Dosing 64.5 ml/min Est GFR ( Amer) 98.1 ml/min Est GFR (Non-Af Amer) 84.6 ml/min BUN/Creatinine Ratio 24.7 H (10-20) Glucose 87 (70-99(Fasting)) mg/dl Calcium 9.6 (8.5-10.1) mg/dl Total Bilirubin 0.4 (0.2-1.0) mg/dl AST 19 (13-39) U/L ALT 17 (7-52) U/L Alkaline Phosphatase 72 (34-104) U/L Total Protein 7.7 (6.0-8.3) gm/dl Albumin 4.3 (3.4-5.0) gm/dl Globulin 3.4 (2.5-4.0) gm/dl Albumin/Globulin Ratio 1.3 (0.9-2) Administered Medications Discontinued Medications Ioversol (Optiray 320 500ml) 112 ml IV ONCE ONE Stop: 12/29/22 16:54 Last Admin: 12/29/22 16:59 Dose: 112 ml Documented By: [facility] Imaging Data Radiologist's Impression: Head CT 12/29/22 12:06 CT head/brain wo con CLINICAL HISTORY: 67 years-old Female with STROKE LIKE SYMPTOMS LAST NIGHT- RESOLVED. Acute strokelike symptoms TECHNIQUE: Multiple axial CT images of the head were obtained without contrast. A dose lowering technique was utilized adhering to the principles of ALARA. CT DOSE: 614.27 mGy.cm COMPARISON: None. FINDINGS: No acute intracranial hemorrhage, midline shift, intracranial mass, hydrocephalus, territorial ischemia or abnormal extra-axial collection. Involutional changes. Mild white matter hypodensities suggestive of chronic microvascular ischemic disease. The calvarium is intact. Prior bilateral lens repair. The paranasal sinuses, mastoid air cells, and middle ear cavities are clear. IMPRESSION: No acute intracranial abnormality. ACT 112: Negative or not required by law. The above report was generated using voice recognition software. It may contain grammatical, syntax or spelling errors. Electronically signed by: Bert Jalloh M.D. 12/29/2022 2:56 PM Head CTA 12/29/22 14:58 CT angio head w con, CT angio neck with con CLINICAL HISTORY: 67 years-old Female with tia sx yesterday. Acute strokelike symptoms COMPARISON STUDY: Head CT of same day TECHNIQUE: Following the IV administration of 112 cc of Optiray, CT angiogram of the head and neck was performed from the aortic arch to the skull vertex. Images are reviewed in the axial, sagittal, and coronal planes. 3-D MIPS images are created and assessed. IV contrast was administered without complication. All measurements were obtained according to NASCET criteria. A dose lowering technique was utilized adhering to the principles of ALARA. CT DOSE: 463.67 mGy.cm FINDINGS: CT ANGIOGRAM OF THE HEAD AND NECK: Three-vessel morphology of the thoracic aortic arch. Patency of the innominate and imaged subclavian arteries. The common carotid arteries are patent. There is moderate atherosclerotic plaque of the carotid bulbs and proximal cervical segments of the internal carotid arteries resulting in less than 50% stenosis bilaterally. The bilateral anterior and middle cerebral arteries are also patent. The vertebrobasilar system and posterior cerebral arteries are widely pa tent. origin of the right posterior cerebral artery. There is no aneurysm, high-grade stenosis, or proximal branch occlusion identified. Dural sinuses appear patent. Lung apices are clear. No pneumothorax. Unremarkable soft tissues. Prior bilateral lens repair. Degenerative changes of the cervical spine. Mild polypoid mucosal thickening of the right maxillary sinus. IMPRESSION: 1. No aneurysm, dissection, high-grade stenosis or arterial occlusion. 2. Moderate atherosclerotic plaque of the carotid bulbs results in less than 50% stenosis bilaterally. ACT 112: Negative or not required by law. The above report was generated using voice recognition software. It may contain grammatical, syntax or spelling errors. Electronically signed by: Bert Jalloh M.D. 12/29/2022 5:11 PM Neck CTA 12/29/22 14:58 CT angio head w con, CT angio neck with con CLINICAL HISTORY: 67 years-old Female with tia sx yesterday. Acute strokelike symptoms COMPARISON STUDY: Head CT of same day TECHNIQUE: Following the IV administration of 112 cc of Optiray, CT angiogram of the head and neck was performed from the aortic arch to the skull vertex. Images are reviewed in the axial, sagittal, and coronal planes. 3-D MIPS images are created and assessed. IV contrast was administered without complication. All measurements were obtained according to NASCET criteria. A dose lowering technique was utilized adhering to the principles of ALARA. CT DOSE: 463.67 mGy.cm FINDINGS: CT ANGIOGRAM OF THE HEAD AND NECK: Three-vessel morphology of the thoracic aortic arch. Patency of the innominate and imaged subclavian arteries. The common carotid arteries are patent. There is moderate atherosclerotic plaque of the carotid bulbs and proximal cervical s egments of the internal carotid arteries resulting in less than 50% stenosis bilaterally. The bilateral anterior and middle cerebral arteries are also patent. The vertebrobasilar system and posterior cerebral arteries are widely patent. origin of the right posterior cerebral artery. There is no aneurysm, high-grade stenosis, or proximal branch occlusion identified. Dural sinuses appear patent. Lung apices are clear. No pneumothorax. Unremarkable soft tissues. Prior bilateral lens repair. Degenerative changes of the cervical spine. Mild polypoid mucosal thickening of the right maxillary sinus. IMPRESSION: 1. No aneurysm, dissection, high-grade stenosis or arterial occlusion. 2. Moderate atherosclerotic plaque of the carotid bulbs results in less than 50% stenosis bilaterally. ACT 112: Negative or not required by law. The above report was generated using voice recognition software. It may contain grammatical, syntax or spelling errors. Electronically signed by: Bert Jalloh M.D. 12/29/2022 5:11 PM Discharge Plan Visit Data Chief Complaint: Stroke/CVA Symptoms Stated Complaint: DR SAMUELS, SLURRED SPEECH, VISION ISSUES LAST NIGHT ED Provider: Noé Gamez Discharge Problem: Brain TIA Patient Disposition: Being Evaluated by Hospitalist Forms Stand Alone Forms: [facility] Prescriptions Prescriptions: No Action omeprazole 40 mg capsule,delayed release(DR/EC) 40 mg PO DAILY PRN aspirin [Adult Low Dose Aspirin] 81 mg tablet,delayed release (DR/EC) 81 mg PO DAILY Qty: 90 3RF nitroglycerin [Nitrostat] 0.4 mg tablet, sublingual 0.4 mg Sublingual Q5M PRN (Reason: Chest Pain) Referrals Referrals: Jazz Garcia MD [Primary Care Provider] -
--- NOTE | 2022-12-29 18:28 | History & Physical Report ---
Date of Service December 29, 2022 Assessment & Plan (1) Brain TIA: Plan: 67 yo WF presents with intermittent L arm numbness and dysarthria - Obs to med/surg with tele - MRI Brain w/o contrast - Transthoracic echo - Bedside swallow eval, if passes can advance diet to heart healthy - Lipid panel in AM - may need to add a low dose statin pending results - hsTrop stat - Will transition from Aspirin to Plavix 75mg to start on 2/3 - No need for neurology consult at this time unless abnormality noted on MRI (2) Hypertensive urgency: Plan: - 189/94 on admit, repeat 162/92 - Add Hydralazine 10mg IV q4h prn sbp>180 or dbp>100 - Low salt diet - May need to add an antihypertensive to her medication regimen if remains persistently elevated (3) CAD (coronary artery disease): Plan: History of NSTEMI in 2017 s/p ALBERTO OM - Obtain stat hsTrop and will cycle if significantly elevated - Chest pain free, no ekg changes (EKG NSR) (4) GERD (gastroesophageal reflux disease): Plan: - Currently not taking any medication for this - PRN Maalox Plan Above plan of care has been d/w Dr. Morton who has also seen and evaluated this patient and agrees with plan. Further orders as warranted. History of Present Illness Chief Complaint: numbness in left arm, abnormal speech Primary Care Provider: Jazz Garcia MD Jennifer Drake is a 67 yo WF who has a h/o CAD s/p ALBERTO OM in January of 2017 and does not take any medications on a daily basis presented to the ER today c/o intermi ttent left arm numbness and dysarthria that started last evening. She notes that when she awoke this morning the symptoms had resolved. She has been having this issue intermittently for the past couple of months but has not been formally evaluated for symptoms. She has not seen her top case assembler since the start of the COVID pandemic. She normally sees Dr. James. She is supposed to be taking ASA 81mg daily but admits she doesn't take it daily. She also denies being prescribed a statin and has a reported documented allergy to statins with the side effect of "muscle pain." She denies facial droop or numbness, left leg numbness/weakness. She also denies having a h/o of hypertension and has never b een on BP meds. She denies tobacco use. Her work up in the ER included a CT and CTA of the head as well as a neck CTA. CT demonstrates no acute abnormality and CTA of head notes moderate plaque of both carotid bulbs <50%. She has been medicated with a dose of full strength ASA and has been referred for admission to the hospitalists service for further evaluation. Allergies Allergy/AdvReac Type Severity Reaction Status Date / Time Wpejgez-QSX-PhI Reductase Allergy Muscle Pain Verified 09/08/22 09:56 Inhibitor [Xjvbbtw-Wqk-Zds Reductase Inhibitor] Home Medications Medication Instructions Recorded Confirmed Type nitroglycerin 0.4 mg sublingual 0.4 mg sublingual Q5M PRN Chest 07/19/19 09/08/22 History tablet (Nitrostat) Pain omeprazole 40 mg capsule,delayed 40 mg PO DAILY PRN 05/27/20 09/08/22 History release aspirin 81 mg tablet,delayed 81 mg PO DAILY #90 tabs 05/31/20 09/08/22 Rx release (Adult Low Dose Aspirin) 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 Denies fever, chills, fatigue, headache, nasal congestion, sore throat, cough, chest pain, shortness of breath, palpitations, orthopnea, PND, abdominal pain, n /v/d, constipation, dysuria, hematuria, frequency, back pain, joint pain or swelling, easy bruising or bleeding, skin lesions or rashes. Physical Exam Physical Exam: GENERAL: 67 yo Well-developed, well-nourished WF. NAD. EYES: EOMI. PERRLA. Anicteric. HENT: Moist mucous membranes. No scleral icterus. No cervical lymphadenopathy. LUNGS: Clear to auscultation bilaterally. No accessory muscle use. No W/R/R. CARDIOVASCULAR: Regular rate and rhythm. No M/G/R. No JVD. ABDOMEN: Soft, non-tender and non-distended. No palpable masses. Bs normoactive x 4 quad. EXTREMITIES: No edema. Non-tender. Peripheral pulses +2/4. NEUROLOGIC: A&O x3. No focal neurological deficits. CN II-XII grossly intact. PSYCHIATRIC: Cooperative. Appropriate mood and affect. SKIN: Warm, dry, intact. No rashes or lesions. Results & Data Results & Data ([facility]) Vital Signs (Past 12 Hours) Vital Signs Temp Pulse Resp BP Pulse Ox O2 Del Method 12/29/22 12:01 36 C L 76 18 189/94 H 100 Room Air Laboratory Results 12/29/22 15:54 12/29/22 15:[address] 12/29/22 12:06 CT head/brain wo con CLINICAL HISTORY: 67 years-old Female with STROKE LIKE SYMPTOMS LAST NIGHT-RESOLVED. Acute strokelike symptoms TECHNIQUE: Multiple axial CT images of the head were obtained without contrast. A dose lowering technique was utilized adhering to the principles of ALARA. CT DOSE: 614.27 mGy.cm COMPARISON: None. FINDINGS: No acute intracranial hemorrhage, midline shift, intracranial mass, hydrocephalus, territorial ischemia or abnormal extra-axial collection. Involutional changes. Mild white matter hypodensities suggestive of chronic microvascular ischemic disease. The calvarium is intact. Prior bilateral lens repair. The paranasal sinuses, mastoid air cells, and middle ear cavities are clear. IMPRESSION: No acute intracranial abnormality. ACT 112: Negative or not required by law. The above report was generated using voice recognition software. It may contain grammatical, syntax or spelling errors. Electronically signed by: Bert Jalloh M.D. 12/29/2022 2:56 PM Head CTA 12/29/22 14:58 CT angio head w con, CT angio neck with con CLINICAL HISTORY: 67 years-old Female with tia sx yesterday. Acute strokelike symptoms COMPARISON STUDY: Head CT of same day TECHNIQUE: Following the IV administration of 112 cc of Optiray, CT angiogram of the head and neck was performed from the aortic arch to the skull vertex. Images are reviewed in the axial, sagittal, and coronal planes. 3-D MIPS images are cre ated and assessed. IV contrast was administered without complication. All measurements were obtained according to NASCET criteria. A dose lowering technique was utilized adhering to the principles of ALARA. CT DOSE: 463.67 mGy.cm FINDINGS: CT ANGIOGRAM OF THE HEAD AND NECK: Three-vessel morphology of the thoracic aortic arch. Patency of the innominate and imaged subclavian arteries. The common carotid arteries are patent. There is moderate atherosclerotic plaque of the carotid bulbs and proximal cervical segments of the internal carotid arteries resulting in less than 50% stenosis bilaterally. The bilateral anterior and middle cerebral arteries are also patent. The vertebrobasilar system and posterior cerebral arteries are widely patent. origin of the right posterior cerebral artery. There is no aneurysm, high-grade stenosis, or proximal branch occlusion identified. Dural si nuses appear patent. Lung apices are clear. No pneumothorax. Unremarkable soft tissues. Prior bila teral lens repair. Degenerative changes of the cervical spine. Mild polypoid mucosal thickening of the right maxillary sinus. IMPRESSION: 1. No aneurysm, dissection, high-grade stenosis or arterial occlusion. 2. Moderate atherosclerotic plaque of the carotid bulbs results in less than 50% stenosis bilaterally. ACT 112: Negative or not required by law. The above report was generated using voice recognition software. It may contain grammatical, syntax or spelling errors. Electronically signed by: Bert Jalloh M.D. 12/29/2022 5:11 PM Neck CTA 12/29/22 14:58 CT angio head w con, CT angio neck with con CLINICAL HISTORY: 67 years-old Female with tia sx yesterday. Acute strokelike symptoms COMPARISON STUDY: Head CT of same day TECHNIQUE: Following the IV administration of 112 cc of Optiray, CT angiogram of the head and neck was performed from the aortic arch to the skull vertex. Images are reviewed in the axial, sagittal, and coronal planes. 3-D MIPS images are created and assessed. IV contrast was administered without complication. All measurements were obtained according to NASCET criteria. A dose lowering technique was utilized adhering to the principles of ALARA. CT DOSE: 463.67 mGy.cm FINDINGS: CT ANGIOGRAM OF THE HEAD AND NECK: Three-vessel morphology of the thoracic aortic arch. Patency of the innominate and imaged subclavian arteries. The common carotid arteries are patent. There is moderate atherosclerotic plaque of the carotid bulbs and proximal cervical segments of the internal carotid arteries resulting in less than 50% stenosis bilaterally. The bilateral anterior and middle cerebral arteries are also patent. The vertebrobasilar system and posterior cerebral arteries are widely patent. origin of the right posterior cerebral artery. There is no aneurysm, high-grade stenosis, or proximal branch occlusion identified. Dural sinuses appear patent. Lung apices are clear. No pneumothorax. Unremarkable soft tissues. Prior bilateral lens repair. Degenerative changes of the cervical spine. Mild polypoid mucosal thickening of the right maxillary sinus. IMPRESSION: 1. No aneurysm, dissection, high-grade stenosis or arterial occlusion. 2. Moderate atherosclerotic plaque of the carotid bulbs results in less than 50% stenosis bilaterally. ACT 112: Negative or not required by law. The above report was generated using voice recognition software. It may contain grammatical, syntax or spelling errors. Electronically signed by: Bert Jalloh M.D. 12/29/2022 5:11 PM Supervising Physician Co-Signing Physician Notes Patient seen and examined, chart reviewed, case discussed with Dorinda Kay PA-C, and I agree with the assessment and plan as above except as otherwise noted Labs and images reviewed 67-year-old female who presents with left arm numbness and dysarthria which started last evening and which resolved by time she awoke this morning. Has a history of CAD with cardiac stent on aspirin 81 mg daily but does not take this regularly and frequently forgets. At time of bedside assessment she has no residual deficits, no dysarthria, distal extremity strength and sensation is intact. She is sleeping comfortably, but arouses easily on evening hospitalist assessment. Agree with assessment and work-up above, will complete work-up with MRI. Patient is not completely compliant with aspirin so would not necessarily consider failure, but given underlying CAD and recurrent symptoms reasonable to switch to Plavix.No chest pain or chest pressure at assessment PG Care Time/CCT Total # of Minutes Spent Total Time Spent with Patient: Total time spent is greater than 50% in coordination of care (as documented) at patient's floor/unit and/or counseling patient: Coding Level of Care Code 60362 INT INP/OBS CARE MIN Diagnoses Brain TIA G45.9 Hypertensive urgency I16.0 CAD (coronary artery disease) I25.10 GERD (gastroesophageal reflux disease) K21.9
--- NOTE | 2022-12-29 20:15 | Magnetic Resonance Report ---
MR brain wo con HISTORY: 67 years-old Female tia r/o cva acute stroke like symptoms COMPARISON: CTA head neck of same day TECHNIQUE: Multiplanar multisequence MRI of the brain was obtained without the use of IV contrast. FINDINGS: There is a 1.6 cm focus of cortically based restricted diffusion involving the right frontal lobe on image 17 series 4 which demonstrates intermediate to low signal on ADC map and increased T2/FLAIR sig nal no acute territorial infarct. No acute intracranial hemorrhage, midline shift, abnormal extra-axial collection, hydrocephalus or in tracranial mass. No pathologic blooming artifact. Mild scattered T2/FLAIR hyperintense foci noted thr oughout the white matter. Cerebral venous sinuses and major arterial flow voids appear patent. Skull, orbits and soft tissues are unremarkable. Prior bilateral lens repair. IMPRESSION: 1. Acute 1.6 cm cortically based infarct of the superior right frontal lobe. 2. No acute intracranial hemorrhage. 3. Mild chronic microvascular ischemic disease. ACT 112: Negative or not required by law. The above report was generated using voice recognition software. It may contain grammatical, syntax o r spelling errors. Electronically signed by: Bert Jalloh M.D. 12/29/2022 8:14 PM
[2022-12-29] MEDS ORDERED: MAGNESIUM HYDROXIDE SUSP 30 ML UDC PO PRN (21:02)
[2022-12-29] MEDS ORDERED: hydrALAZINE HCL 20 MG/ML VIAL IV PRN (21:02)
[2022-12-29] MEDS ORDERED: ONDANSETRON INJ 2 MG/ML 2 ML VIAL IV PRN (21:02)
[2022-12-29] MEDS ORDERED: ALUMINUM/MAGNESIUM SUSP 30 ML UDC PO PRN (21:02)
[2022-12-29] MEDS ORDERED: ACETAMINOPHEN 325 MG TAB PO PRN (21:02)
[2022-12-29 22:04] LABS: Troponin I High Sensitivity 3.9 pg/ml (0-14)
[2022-12-29] MEDS ORDERED: PNEUMOCOCCAL POLYSACCHARIDES 25 MCG/0.5 ML VIAL/SYR IM ONE (23:45)
[2022-12-30 07:00] LABS: Hematocrit (blood only) 42.1 % (37.0-47.0); Hemoglobin 13.8 g/dl (12.0-16.0); Mean Corpuscular Hemoglobin 30.4 pg (25.0-34.0); Mean Corpuscular Hgb Conc 32.8 g/dL (32.0-36.0); Mean Corpuscular Volume 92.7 fL (80.0-100.0); Mean Platelet Volume 9.3 fL (9.4-12.4); Platelet Count 312 K/uL (130-400); RDW Coefficient of Variation 13.9 % (11.5-14.5); RDW Standard Deviation 47.5 fL (36.4-46.3); Red Blood Count 4.54 M/uL (4.20-5.40); White Blood Count 11.32 K/ul (4.8-10.8)
[2022-12-30 07:21] LABS: Albumin Globulin Ratio 1.3 (0.9-2); Albumin Level 3.8 gm/dl (3.4-5.0); BUN Creatinine Ratio 20.5 (10-20); Bilirubin,Total 0.4 mg/dl (0.2-1.0); Creatinine Clr Calc Pharmacy 60.4 ml/min; Est GFR (African American) 90.5 ml/min; Est GFR (Non-African American) 78.1 ml/min; Globulin 2.9 gm/dl (2.5-4.0); Magnesium 2.4 mg/dl (1.7-2.4); Potassium 4.2 mmol/L (3.5-5.1); Total Protein 6.7 gm/dl (6.0-8.3)
[2022-12-30 07:52] LABS: Basophils # (auto) 0.06 K/uL (0-0.2); Basophils % (auto) 0.5 %; Eosinophils # (auto) 0.13 K/uL (0-0.50); Eosinophils % (auto) 1.1 %; Immature Granulocytes # (auto) 0.04 K/uL (0.01-0.20); Immature Granulocytes % (auto) 0.4 %; Lymphocytes # (auto) 6.81 K/uL (1.2-3.4); Lymphocytes % (auto) 60.2 %; Monocytes # (auto) 0.59 K/uL (0.11-0.59); Monocytes % (auto) 5.2 %; Neutrophils # (auto) 3.69 K/uL (1.40-6.50); Neutrophils % (auto) 32.6 %; Smudge Cells Present
[2022-12-30] MEDS: ENOXAPARIN INJ 40 MG/0.4 ML SYR SQ SCH (08:08)
[2022-12-30] MEDS: CLOPIDOGREL BISULFATE 75 MG TAB PO SCH (08:08)
[2022-12-30 08:23] LABS: Appearance Urine Clear (Clear); Bacteria Urine Automated Negative (Negative); Bilirubin Urine Negative (Negative); Blood Urine Negative (Negative); Color Urine Yellow; Epithelial Cell Urine Auto >30 /lpf (0-5); Glucose Urine UA Negative (Negative); Ketones Urine Negative (Negative); Leukocyte Esterase Urine 2+ (Negative); Nitrite Urine Negative (Negative); Protein Urine Negative (Negative); RBC Urine Automated 0-4 /hpf (0-4); Specific Gravity Urine 1.031 (1.000-1.030); Urobilinogen Urine Negative (Negative); pH Urine 5.5 (4.5-7.5)
--- NOTE | 2022-12-30 10:12 | XCELERA ---
[id number]
--- NOTE | 2022-12-30 17:13 | Neurology Consultation ---
Date of Consultation December 30, 2022 Assessment & Plan (1) CVA (cerebral vascular accident): Impression: The patient had acute, ischemic cerebrovascular accident, involving right frontal cortex. She has been symptom-free since admission. Underlying etiology was likely atherosclerosis, secondary to hyperlipidemia, and new diagnosis of hypertension. Plan/recommendations: The patient should stay on double antiplatelet treatment, with aspirin 81 mg and Plavix and 5 mg daily for next 3 weeks. Then Plavix can be stopped. Even though the patient had adverse reaction to Lipitor before, but we should try her on different statin, preferably pravastatin at low-dose, with slow titration. Goal LDL level is lower than 70. Management of hypertension. There is no indication for permissive hypertension at this time. Goal blood pressure is below 130/80. Even though paroxysmal atrial fibrillation is unlikely, but we would recommend outpatient Holter monitoring for 2 to 3 weeks, to investigate for paroxysmal atrial fibrillation. The patient is neurologically stable and can be discharged home. Follow-up with neurology clinic. I will contact with [facility] neurology to arrange an appointment. Thank you for the consultation. (2) Hypercholesteremia: Impression: The patient has history of hyperlipidemia, but could not tolerate low-dose Lipitor, and decided not to try any medication since then. He is willing to try different statin at low-dose. Plan/recommendations: As seen above. (3) CAD (coronary artery disease): (4) HTN (hypertension): Impression: The patient denies having diagnosis of hypertension, but blood pressure was running high on admission. It might be reactive, but monitoring showed persistent elevation, and the patient is started on hydralazine. Plan/recommendations: As seen above. History of Present Illness Reason for Consultation: CVA Requesting Physician: Johnathon Reilly MD Attending Physician: Johnathon Reilly MD History of Present Illness The patient is a 67-year-old right-handed female, who presented to ED yesterday morning, with recent history of left arm coordination difficulty, heaviness, and some speech disturbance, which occurred the day before yesterday evening while the patient was in shower. She did not experience any facial or lower extremity sensorimotor symptoms. Her balance was not affected. She did not experience any headache, but she was slightly disoriented. She did not seek medical attention then, and went to sleep, and woke up with improved symptoms. Apparently, she was not a candidate for thrombolytic treatment when she arrived emergency department. Initial head CT was unremarkable. CT angiogram of head and neck showed atherosclerotic changes but no hemodynamically significant stenosis. The patient has history of coronary artery disease, and supposed to be on daily aspirin, but she has not been compliant. In emergency department, she was given a dose of aspirin. She has hyperlipidemia, but could not tolerate Lipitor before, and has not been on any treatment. Since admission, lipid panel was checked, which showed elevated serum lipids including LDL. The patient is agreement with trying on different statin on a low-dose. Brain MRI showed a right frontal cortical small ischemic acute stroke. Echocardiogram was unremarkable. Telemetry monitoring has been showing sinus rhythm. The patient denies having stroke symptoms in the past, but in few occasions, she had had left arm coordination difficulty. She has no symptoms to suggest obstructive sleep apnea and she does not use tobacco or any illicit drugs. She denies family history of early age strokes. She does not remember having palpitations or racing heartbeats. I have reviewed the patient's chart including imaging studies and visualized them personally. I have discussed the case with the patient and answer her questions in detail. Allergies Allergy/AdvReac Type Severity Reaction Status Date / Time Hcekjyt-CFT-JlL Reductase Allergy Muscle Pain Verified 09/08/22 09:56 Inhibitor [Apxsigy-Ojd-Sdx Reductase Inhibitor] Home Medications Medication Instructions Recorded Confirmed Type nitroglycerin 0.4 mg sublingual 0.4 mg sublingual Q5M PRN Chest 07/19/19 09/08/22 History tablet (Nitrostat) Pain omeprazole 40 mg capsule,delayed 40 mg PO DAILY PRN 05/27/20 09/08/22 History release aspirin 81 mg tablet,delayed 81 mg PO DAILY #90 tabs 05/31/20 09/08/22 Rx release (Adult Low Dose Aspirin) Patient History Medical History CAD (coronary artery disease) GERD (gastroesophageal reflux disease) H/O Clostridium difficile infection Left knee DJD Monoclonal B-cell lymphocytosis (~09/02/14) Pes anserinus tendonitis Surgical History History of tubal ligation S/P cholecystectomy S/P colonoscopy Family History Other Diabetes Denies family history of Crohn's disease Colorectal cancer Ulcerative colitis Social History Smoking Status: Never smoker Hx Alcohol Use: No Hx Substance Use: No Preferred Language: Maltese Communication Ability: Effective Batcher Operator Required: No Beliefs That Will Affect Care: None Current Living Situation: Spouse Other Information That Helps Us Care for You: No Feels Safe at Home: Yes Assistive Devices: Glasses Review of Systems Review of Systems: All systems reviewed & are unremarkable except as noted in HPI & below Physical Exam Physical Exam: General Examination: Constitutional: Well developed person in no acute distress. HENT: Normal exam with inspection. CV: Hearth rhtyhm is regular. Neck: Supple, no carotid bruits. Lungs: Non-labored and comfortable breathing. Abdomen: Soft, non-tender, non-distended. Skin: No rash or ecchymosis. Extremities: No edema or cyanosis NEUROLOGICAL EXAMINATION: Mental Status: Alert and oriented to place, person and time. Cranial Nerves: II-XII are intact. No nystagmus. Funduscopy: Normal looking optic discs. Motor: 5/5 in all extremities without asymmetry. Tone: Normal without spasticity or rigidity. Sensory: Intact to all sensory modalities. Coordination: No dysmetria with FTN testing. Speech: Fluent. Comprehension is intact. Gait: Normal. No ataxia or abnormal walking pattern. DTR's: 2+ all. No Babinsky, Results & Data ([facility]) Vital Signs (Past 12 Hours) Vital Signs Temp Pulse Pulse Resp BP BP Pulse Ox 12/30/22 16:43 37.0 C 66 19 133/83 97 12/30/22 16:28 68 12/30/22 11:36 37.0 C 66 19 137/81 97 12/30/22 07:00 62 12/30/22 07:53 36.4 C L 61 18 149/79 H 99 O2 Del Method 12/30/22 16:43 Room Air 12/30/22 16:28 12/30/22 11:36 Room Air 12/30/22 07:00 12/30/22 07:53 Room Air Laboratory Results Laboratory Results - last 24 hr 12/29/22 12/29/22 12/29/22 08:00 15:54 15:54 WBC RBC Hgb Hct MCV MCH MCHC RDW Std Deviation RDW Coeff of [place] Plt Count MPV Immature Gran % (Auto) Neut % (Auto) Lymph % (Auto) [place] % (Auto) Eos % (Auto) Baso % (Auto) Neut # (Auto) Lymph # (Auto) [place] # (Auto) Eos # (Auto) Baso # (Auto) Immature Gran # (Auto) Smudge Cells Sodium Potassium Chloride Carbon Dioxide Anion Gap BUN Creatinine Est Cr Clr Drug Dosing Est GFR ( Amer) Est GFR (Non-Af Amer) BUN/Creatinine Ratio Glucose Calcium Magnesium Total Bilirubin AST ALT Alkaline Phosphatase Troponin I High Sens 3.9 Cancelled Total Protein Albumin Globulin Albumin/Globulin Ratio Triglycerides Cholesterol LDL Cholesterol, Calc VLDL Cholesterol, Calc HDL Cholesterol Cholesterol/HDL Ratio Urine Color Yellow Urine Appearance Clear Urine pH 5.5 Ur Specific [place] 1.031 H Urine Protein Negative Urine Glucose (UA) Negative Urine Ketones Negative Urine Blood Negative Urine Nitrite Negative Urine Bilirubin Negative Urine Urobilinogen Negative Ur Leukocyte Esterase 2+ H Urine WBC (Auto) 10-30 H Urine RBC (Auto) 0-4 U Hyaline Cast (Auto) 1-5 U Epithel Cells (Auto) >30 H Urine Bacteria (Auto) Negative SARS-CoV-2, RNA, NAAT 12/29/22 12/30/22 12/30/22 Unknown 06:19 06:19 WBC 11.32 H RBC 4.54 Hgb 13.8 Hct 42.1 MCV 92.7 MCH 30.4 MCHC 32.8 RDW Std Deviation 47.5 H RDW Coeff of [place] 13.9 Plt Count 312 MPV 9.3 L Immature Gran % (Auto) 0.4 Neut % (Auto) 32.6 Lymph % (Auto) 60.2 [place] % (Auto) 5.2 Eos % (Auto) 1.1 Baso % (Auto) 0.5 Neut # (Auto) 3.69 Lymph # (Auto) 6.81 H [place] # (Auto) 0.59 Eos # (Auto) 0.13 Baso # (Auto) 0.06 Immature Gran # (Auto) 0.04 Smudge Cells Present Sodium 140 Potassium 4.2 Chloride 107 Carbon Dioxide 29 Anion Gap 4 BUN 16 Creatinine 0.78 Est Cr Clr Drug Dosing 60.4 Est GFR ( Amer) 90.5 Est GFR (Non-Af Amer) 78.1 BUN/Creatinine Ratio 20.5 H Glucose 91 Calcium 9.0 Magnesium 2.4 Total Bilirubin 0.4 AST 16 ALT 15 Alkaline Phosphatase 64 Troponin I High Sens Total Protein 6.7 Albumin 3.8 Globulin 2.9 Albumin/Globulin Ratio 1.3 Triglycerides 104 Cholesterol 236 H LDL Cholesterol, Calc 156 VLDL Cholesterol, Calc 21 HDL Cholesterol 59 Cholesterol/HDL Ratio 4.0 Urine Color Urine Appearance Urine pH Ur Specific [place] Urine Protein Urine Glucose (UA) Urine Ketones Urine Blood Urine Nitrite Urine Bilirubin Urine Urobilinogen Ur Leukocyte Esterase Urine WBC (Auto) Urine RBC (Auto) U Hyaline Cast (Auto) U Epithel Cells (Auto) Urine Bacteria (Auto) SARS-CoV-2, RNA, NAAT NEGATIVE Diagnostic Findings Head CT 12/29/22 12:06 CT head/brain wo con CLINICAL HISTORY: 67 years-old Female with STROKE LIKE SYMPTOMS LAST NIGHT- RESOLVED. Acute strokelike symptoms TECHNIQUE: Multiple axial CT images of the head were obtained without contrast. A dose lowering technique was utilized adhering to the principles of ALARA. CT DOSE: 614.27 mGy.cm COMPARISON: None. FINDINGS: No acute intracranial hemorrhage, midline shift, intracranial mass, hydrocephalus, territorial ischemia or abnormal extra-axial collection. Involutional changes. Mild white matter hypodensities suggestive of chronic microvascular ischemic disease. The calvarium is intact. Prior bilateral lens repair. The paranasal sinuses, mastoid air cells, and middle ear cavities are clear. IMPRESSION: No acute intracranial abnormality. ACT 112: Negative or not required by law. The above report was generated using voice recognition software. It may contain grammatical, syntax or spelling errors. Electronically signed by: Bert Jalloh M.D. 12/29/2022 2:56 PM Head CTA 12/29/22 14:58 CT angio head w con, CT angio neck with con CLINICAL HISTORY: 67 years-old Female with tia sx yesterday. Acute strokelike symptoms COMPARISON STUDY: Head CT of same day TECHNIQUE: Following the IV administration of 112 cc of Optiray, CT angiogram of the head and neck was performed from the aortic arch to the skull vertex. Images are reviewed in the axial, sagittal, and coronal planes. 3-D MIPS images are created and assessed. IV contrast was administered without complication. All measurements were obtained according to NASCET criteria. A dose lowering technique was utilized adhering to the principles of ALARA. CT DOSE: 463.67 mGy.cm FINDINGS: CT ANGIOGRAM OF THE HEAD AND NECK: Three-vessel morphology of the thoracic aortic arch. Patency of the innominate and imaged subclavian arteries. The common carotid arteries are patent. There is moderate atherosclerotic plaque of the carotid bulbs and proximal cervical segments of the internal carotid arteries resulting in less than 50% stenosis bilaterally. The bilateral anterior and middle cerebral arteries are also patent. The vertebrobasilar system and posterior cerebral arteries are widely patent. origin of the right posterior cerebral artery. There is no aneurysm, high-grade stenosis, or proximal branch occlusion identified. Dural sinuses appear patent. Lung apices are clear. No pneumothorax. Unremarkable soft tissues. Prior bilateral lens repair. Degenerative changes of the cervical spine. Mild polypoid mucosal thickening of the right maxillary sinus. IMPRESSION: 1. No aneurysm, dissection, high-grade stenosis or arterial occlusion. 2. Moderate atherosclerotic plaque of the carotid bulbs results in less than 50% stenosis bilaterally. ACT 112: Negative or not required by law. The above report was generated using voice recognition software. It may contain grammatical, syntax or spelling errors. Electronically signed by: Bert Jalloh M.D. 12/29/2022 5:11 PM Neck CTA 12/29/22 14:58 CT angio head w con, CT angio neck with con CLINICAL HISTORY: 67 years-old Female with tia sx yesterday. Acute strokelike symptoms COMPARISON STUDY: Head CT of same day TECHNIQUE: Following the IV administration of 112 cc of Optiray, CT angiogram of the head and neck was performed from the aortic arch to the skull vertex. Images are reviewed in the axial, sagittal, and coronal planes. 3-D MIPS images are created and assessed. IV contrast was administered without complication. All measurements were obtained according to NASCET criteria. A dose lowering technique was utilized adhering to the principles of ALARA. CT DOSE: 463.67 mGy.cm FINDINGS: CT ANGIOGRAM OF THE HEAD AND NECK: Three-vessel morphology of the thoracic aortic arch. Patency of the innominate and imaged subclavian arteries. The common carotid arteries are patent. There is moderate atherosclerotic plaque of the carotid bulbs and proximal cervical segments of the internal carotid arteries resulting in less than 50% stenosis bilaterally. The bilateral anterior and middle cerebral arteries are also patent. The vertebrobasilar system and posterior cerebral arteries are widely patent. origin of the right posterior cerebral artery. There is no aneurysm, high-grade stenosis, or proximal branch occlusion identified. Dural sinuses appear patent. Lung apices are clear. No pneumothorax. Unremarkable soft tissues. Prior bilateral lens repair. Degenerative changes of the cervical spine. Mild polypoid mucosal thickening of the right maxillary sinus. IMPRESSION: 1. No aneurysm, dissection, high-grade stenosis or arterial occlusion. 2. Moderate atherosclerotic plaque of the carotid bulbs results in less than 50% stenosis bilaterally. ACT 112: Negative or not required by law. The above report was generated using voice recognition software. It may contain grammatical, syntax or spelling errors. Electronically signed by: Bert Jalloh M.D. 12/29/2022 5:11 PM Brain MRI 12/29/22 17:59 MR brain wo con HISTORY: 67 years-old Female tia r/o cva acute stroke like symptoms COMPARISON: CTA head neck of same day TECHNIQUE: Multiplanar multisequence MRI of the brain was obtained without the use of IV contrast. FINDINGS: There is a 1.6 cm focus of cortically based restricted diffusion involving the right frontal lobe on image 17 series 4 which demonstrates intermediate to low signal on ADC map and increased T2/FLAIR signal no acute territorial infarct. No acute intracranial hemorrhage, midline shift, abnormal extra-axial collection, hydrocephalus or intracranial mass. No pathologic blooming artifact. Mild scattered T2/FLAIR hyperintense foci noted throughout the white matter. Cerebral venous sinuses and major arterial flow voids appear patent. Skull, orbits and soft tissues are unremarkable. Prior bilateral lens repair. IMPRESSION: 1. Acute 1.6 cm cortically based infarct of the superior right frontal lobe. 2. No acute intracranial hemorrhage. 3. Mild chronic microvascular ischemic disease. ACT 112: Negative or not required by law. The above report was generated using voice recognition software. It may contain grammatical, syntax or spelling errors. Electronically signed by: Bert Jalloh M.D. 12/29/2022 8:14 PM TTE--Unremarkable
--- NOTE | 2022-12-30 23:37 | Hospitalist Progress Note ---
Date of Service December 30, 2022 Assessment & Plan (1) Brain TIA: Plan: 67 yo WF presents with intermittent L arm numbness and dysarthria - Obs to med/surg with tele - MRI Brain w/o contrast - Transthoracic echo - Bedside swallow eval, if passes can advance diet to heart healthy - Lipid panel in AM - may need to add a low dose statin pending results - hsTrop stat - Will transition from Aspirin to Plavix 75mg to start on 2/3 Neurology input as per patient request-we will follow MRI results (2) Hypertensive urgency: Plan: - 189/94 on admit, repeat 162/92 - Add Hydralazine 10mg IV q4h prn sbp>180 or dbp>100 - Low salt diet - May need to add an antihypertensive to her medication regimen if remains persistently elevated (3) CAD (coronary artery disease): Plan: History of NSTEMI in 2017 s/p ALBERTO OM - Obtain stat hsTrop and will cycle if significantly elevated - Chest pain free, no ekg changes (EKG NSR) (4) GERD (gastroesophageal reflux disease): Plan: - Currently not taking any medication for this - PRN Maalox Plan Admission and Anticipated Discharge Date Admission Date: December 29, 2022 Subjective Patient seen and examined Denies fevers or chills no new complaints reported Physical Exam Physical Exam: Head and ENT no thyroid enlargement trachea midline Cardiovascular S1-S2 are normal no S3 Lungs bilateral air entry fair no wheezing Abdomen soft nondistended positive bowel sounds no rebound tenderness Extremity shows trace edema Neurologically no focal deficits left-sided weakness has not worsened Skin shows no rash no cyanosis Results & Data Results & Data ([facility]) Vital Signs (Past 12 Hours) Vital Signs Temp Pulse Pulse Resp BP BP Pulse Ox 12/30/22 23:12 36.6 C 69 18 134/73 96 12/30/22 19:30 36.6 C 69 18 122/76 96 12/30/22 16:43 37.0 C 66 19 133/83 97 12/30/22 16:28 68 12/30/22 11:36 37.0 C 66 19 137/81 97 O2 Del Method 12/30/22 23:12 Room Air 12/30/22 19:30 Room Air 12/30/22 16:43 Room Air 12/30/22 16:28 12/30/22 11:36 Room Air Laboratory Results Short CBC 12/30/22 Range/Units 06:19 WBC 11.32 H (4.8-10.8) K/ul Hgb 13.8 (12.0-16.0) g/dl Hct 42.1 (37.0-47.0) % Plt Count 312 (130-400) K/uL BMP 12/30/22 06:19 Sodium 140 Potassium 4.2 Chloride 107 Carbon Dioxide 29 BUN 16 Creatinine 0.78 Glucose 91 Calcium 9.0 Liver Function 12/30/22 Range/Units 06:19 Total Bilirubin 0.4 (0.2-1.0) mg/dl AST 16 (13-39) U/L ALT 15 (7-52) U/L Alkaline Phosphatase 64 (34-104) U/L Albumin 3.8 (3.4-5.0) gm/dl Urine 12/29/22 Range/Units 08:00 Urine Color Yellow Urine Appearance Clear (Clear) Urine pH 5.5 (4.5-7.5) Ur Specific [place] 1.031 H (1.000-1.030) Urine Protein Negative (Negative) Urine Glucose (UA) Negative (Negative) PG Care Time/CCT Total # of Minutes Spent Total Time Spent with Patient: Total time spent is greater than 50% in coordination of care (as documented) at patient's floor/unit and/or counseling patient: Coding Level of Care Code 05460 SUB INP/OBS CARE 2/35MIN Diagnoses Brain TIA G45.9 Hypertensive urgency I16.0 CAD (coronary artery disease) I25.10 GERD (gastroesophageal reflux disease) K21.9
[2022-12-31 06:59] LABS: Hematocrit (blood only) 41.5 % (37.0-47.0); Hemoglobin 13.9 g/dl (12.0-16.0); Mean Corpuscular Hemoglobin 30.2 pg (25.0-34.0); Mean Corpuscular Hgb Conc 33.5 g/dL (32.0-36.0); Mean Corpuscular Volume 90.2 fL (80.0-100.0); Mean Platelet Volume 9.2 fL (9.4-12.4); Platelet Count 322 K/uL (130-400); RDW Coefficient of Variation 13.7 % (11.5-14.5); RDW Standard Deviation 45.5 fL (36.4-46.3); White Blood Count 10.88 K/ul (4.8-10.8)
[2022-12-31 07:30] LABS: BUN Creatinine Ratio 24.2 (10-20); Calcium 9.3 mg/dl (8.5-10.1); Creatinine Clr Calc Pharmacy 51.4 ml/min; Est GFR (African American) 75.1 ml/min; Est GFR (Non-African American) 64.8 ml/min; Potassium 3.9 mmol/L (3.5-5.1)
[2022-12-31] MEDS: ENOXAPARIN INJ 40 MG/0.4 ML SYR SQ SCH (08:34)
[2022-12-31] MEDS: CLOPIDOGREL BISULFATE 75 MG TAB PO SCH (08:34)
--- NOTE | 2022-12-31 23:24 | Discharge Summary ---
Date of Service December 31, 2022 Admission HPI Per Admitting Provider Jennifer Drake is a 67 yo WF who has a h/o CAD s/p ALBERTO OM in January of 2017 and does not take any medications on a daily basis presented to the ER today c/o intermittent left arm numbness and dysarthria that started last evening. She notes that when she awoke this morning the symptoms had resolved. She has been having this issue intermittently for the past couple of months but has not been formally evaluated for symptoms. She has not seen her process developer since the start of the COVID pandemic. She normally sees Dr. James. She is supposed to be taking ASA 81mg daily but admits she doesn't take it daily. She also denies being prescribed a statin and has a reported documented allergy to statins with the side effect of "muscle pain." She denies facial droop or numbness, left leg numbness/weakness. She also denies having a h/o of hypertension and has never been on BP meds. She denies tobacco use. Her work up in the ER included a CT and CTA of the head as well as a neck CTA. CT demonstrates no acute abnormality and CTA of head notes moderate plaque of both carotid bulbs <50%. She has been medicated with a dose of full strength ASA and has been referred for admission to the hospitalists service for further evaluation. Principal Diagnosis Acute TIA Discharge Exam Head and ENT no thyroid enlargement trachea midline Cardiovascular S1-S2 are normal no S3 Lungs bilateral air entry fair no wheezing Abdomen soft nondistended positive bowel sounds no rebound tenderness Extremity shows trace edema Neurologically no focal deficits left-sided weakness has not worsened Skin shows no rash no cyanosis Discharge Data Allergies Allergy/AdvReac Type Severity Reaction Status Date / Time Kyjfxsg-LHP-RfZ Reductase Allergy Muscle Pain Verified 09/08/22 09:56 Inhibitor [Guxnwhs-Xuj-Tzn Reductase Inhibitor] Consultations 12/29/22 17:49 ED Decision to Admit Stat 12/30/22 14:48 Consult Neurology Routine Ordered Studies 12/29/22 12:06 CT head/brain wo con Stat 12/29/22 14:58 CT angio head w con Stat CT angio neck with con Stat 12/29/22 17:59 MRI Brain [MR brain wo con] Routine Hospital Course (1) Brain TIA: 67 yo WF presents with intermittent L arm numbness and dysarthria - Obs to med/surg with tele - MRI Brain w/o contrast - Transthoracic echo - Bedside swallow eval, if passes can advance diet to heart healthy - Lipid panel in AM - may need to add a low dose statin pending results - hsTrop stat - Will transition from Aspirin to Plavix 75mg to start on 12/30 Neurology input as per patient request-we will follow MRI results 12/31-patient seen by neurology Dr Key Patient to continue on dual antiplatelet therapy with low-dose aspirin and Plavix for 3 weeks Subsequently patient advised by neurology to be on long-term low-dose aspirin consistently Patient advised follow-up with neurology in 1 week and to schedule Holter monitoring to complete work-up for TIA Patient was advised to follow-up with the PCP in 5 days to discuss low-dose statin therapy As patient does not want to start statin therapy because of intolerance in the past at this time (2) Hypertensive urgency: - 189/94 on admit, repeat 162/92 - Add Hydralazine 10mg IV q4h prn sbp>180 or dbp>100 - Low salt diet - May need to add an antihypertensive to her medication regimen if remains persistently elevated (3) CAD (coronary artery disease): History of NSTEMI in 2017 s/p ALBERTO OM - Obtain stat hsTrop and will cycle if significantly elevated - Chest pain free, no ekg changes (EKG NSR) (4) GERD (gastroesophageal reflux disease): - Currently not taking any medication for this - PRN Maalox Plan Total Time Total Time Spent Total Time Spent (In Minutes): 45 Discharge Plan Discharge Items Patient Disposition: Home - Self-Care Reason For Visit: TIA Discharge Diagnosis: acute TIA Activity: Per Instructions section Non-emergency contact: Primary Care Provider and Neurologist Call non-emergency contact if: your symptoms worsen Follow-up/Referrals: Jazz Garcia MD [Primary Care Provider] - Diet: Heart Healthy and Low Fat Addtl Attending Provider Instructions: Dr Som Key - neurologist 10 days to schedule holter monitoring PCP 5 days Pending Studies at Discharge: No Stand-Alone Forms: [employer], Smoking Cessation Medications and DC Order Prescriptions: New clopidogrel 75 mg Tablet 75 mg PO QAM Qty: 21 0RF Continued omeprazole 40 mg capsule,delayed release(DR/EC) 40 mg PO DAILY PRN aspirin [Adult Low Dose Aspirin] 81 mg tablet,delayed release (DR/EC) 81 mg PO DAILY Qty: 90 3RF nitroglycerin [Nitrostat] 0.4 mg tablet, sublingual 0.4 mg Sublingual Q5M PRN (Reason: Chest Pain) Discharge Orders: Discharge Order (Routine); Ordered 12/31/22 Ordered By: Johnathon Blair/Other Patient Handouts: All About Cholesterol Control, Risk Factors for Stroke Admission Data Admit Date/Time: 12/29/22 17:51 Attending Provider: Johnathon Reilly Admit Provider: Santos Morton Primary Care Provider: Jazz Garcia Other Providers: Santos Morton ; Ryne Pradhan ; Shane Gomez ; Jelena Omalley ; Yamileth Lipscomb ; Italo Booker ; Yamileth Ahn ; Som Key ; Lashaun Wyman ; Cachorro Wong ; Marian Roberson ; Mandy Wilkinson ; Italo Smith ; Mason Moreno Other Interventions: Discharge Summary Assessment (RN) Last Done: 12/31/22 15:09 Coding Level of Care Code HOSP INP/OBS DISCH >30 MIN Diagnoses Brain TIA G45.9 Hypertensive urgency I16.0 CAD (coronary artery disease) I25.10 GERD (gastroesophageal reflux disease) K21.9
== END 2022-12-31 15:40 | disposition home or self-care (01) ==
LOC: ED 11:47 → EDINP 11:47 → SUATTDRO 17:51 → 2N 21:03

== ENCOUNTER 2025-01-24 11:24 | Inpatient (IN) ==
--- NOTE | 2025-01-24 11:41 | Emergency Department Note ---
Impression & Plan ST elevation myocardial infarction (STEMI), Chest pain, Leukocytosis ED Provider Note NAME: CHANTEL ISRAEL AGE: 69 SEX: F : 1955 ARRIVES VIA: Walk-In INFORMANT: Patient, ED PROVIDER(S): Kamran Choudhary MD CHIEF COMPLAINT: Chest pain MEDICAL DECISION MAKING: Patient presents due to concern for STEMI on EKG. Heart alert was initiated. I did message discussed the patient's symptoms and presentation with the interventionalist Dr. Lindsey who did present at bedside. Patient was ordered aspirin nitro Brilinta and heparin bolus. Initially had been ordered low-dose heparin with bolus but this was just changed to heparin bolus prior to [facility]. Patient was subsequently taken to [facility]. Inpatient service also notified Dr. Morton patient will be admitted to the intensive care unit post catheterization. Blood work shows a white count of 13 with a normal hemoglobin. Platelet count is unremarkable. Kidney function unremarkable. Initial troponin of 86. Critical Care: I have personally spent 35 minutes of critical care time in direct management of this patient. This includes bedside care, interpretation of diagnostic studies, and testing, discussion with consultants, patient, and family members, and other require inpatient management activities. This 35 minutes is in excess of all separately billable procedures. Discussion w/ other healthcare providers: Dr. Lindsey electronic health records specialist Dr. Morton inpatient medicine service Prior /Outside records reviewed: None Differential diagnosis: Cardiac ischemia, aortic dissection, pulmonary embolism, pneumothorax, pneumonia, pericarditis, myocarditis, GERD, cholecystitis, pancreatitis, musculoskeletal, as well as other pathologies were considered. Diagnostics, as interpreted by me: ECG: Acute STEMI, normal sinus rhythm, rate of 75, normal intervals, right axis deviation, elevation anteriorly as well as possible the in the aVL. Depressions noted inferiorly. This is an acute change for comparison EKG December 29, 2022 Cardiac monitoring: An order was placed for continuous cardiac monitoring. The monitor shows a rate of 77 with sinus rhythm. Patient was placed on pulse oximetry Medical decision rules: None Imaging studies: None HPI: Patient presents due to concern for chest pain that began around 930 while at work today. The patient states that the pain has been constant centralized with radiation to the arm neck and jaw area. Prior history of CAD status post 3 separate stents. Patient does follow with Dr. Ventura locally. The patient states the pain has been constant pressure some associated nausea. No vomiting. Does feel little clammy. Patient called her who brought her here for further evaluation treatment. Patient denies any shortness of breath patient states that she does have some associated abdominal cramping. No leg swelling. Patient states she is compliant with her medications. Denies any cough or fever. She did not take any aspirin today. Pain is 8 out of 10. PAST MEDICAL HISTORY: See Below PAST SURGICAL HISTORY: See Below SOCIAL HISTORY: See Below HOME MEDICATIONS: See Below ALLERGIES: See Below VITALS: See Below PHYSICAL EXAMINATION: GENERAL: NAD, non-toxic. EYE EXAM: Normal conjunctiva. PERRL, no anisocoria and EOM's grossly intact w/o pain. OROPHARYNX: Moist mucus membranes, grossly normal dentition. NECK: Trachea midline, no stridor. Supple, no nuchal rigidity, no adenopathy, non-tender. No signs of meningismus. FROM of the neck with good chin to chest and neck extension. LUNGS: Clear to auscultation. Normal chest wall mechanics. HEART: NSR, no MRG. ABDOMEN: Abdomen soft, non-tender, no masses, no rebound or guarding. BACK: No CVA TTP. SKIN: No rashes and no bruising. UPPER EXTREMITIES: Upper extremities are grossly normal. LOWER EXTREMITIES: Grossly normal, no edema. NEURO EXAM: A&O x3, cranial nerves II-XII grossly intact, normal speech, moves all 4 extremities. Past Med/Surg History Problem List Leukocytosis (Acute) Chest pain (Acute) ST elevation myocardial infarction (STEMI) (Acute) Status post insertion of drug-eluting stent into left anterior descending (LAD) artery (03/2024) Ischemic cardiomyopathy (03/2024) Hypokalemia Hyperlipidemia Acute systolic (congestive) heart failure CAD (coronary artery disease) H. 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 James HTN (hypertension) pt denies CVA (cerebral vascular accident) (12/2022) 12/2022, while in shower "lt arm had no feeling, I and started feeling strange," slurred speech, double vision>went to hospital the next day, symptoms "were gone," and left eye was drooping; had CT x2, MRI, heart echocardiogram>stayed 12/29/22 until 01/01/23; no residual symptoms Brain TIA 12/2022, while in shower "lt arm had no feeling, I and started feeling strange," slurred speech, double vision>went to hospital the next day, symptoms "were gone," and left eye was drooping; had CT x2, MRI, heart echocardiogram>stayed 12/29/22 until 01/01/23; no residual symptoms H/O Clostridium difficile infection 2012, tx w/abx, dx [facility] Hypercholesteremia pt unsure about his GERD (gastroesophageal reflux disease) hx-"no current issues" Surgical History S/P cholecystectomy History of esophagogastroduodenoscopy (EGD) w/dilation Hx of bilateral cataract extraction History of heart artery stent 01/2017, x1 stent, [facility] History of cardiac cath 01/2017, following [place]; f/u Dr. 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: No Beliefs That Will Affect Care: None Current Living Situation: Spouse Other Information That Helps Us Care for You: No Feels Safe at Home: Yes Safety Concerns: Feels Safe At This Time Assistive Devices: None Allergies Allergies Allergy/AdvReac Type Severity Reaction Status Date / Time Gmwrfak-FNW-BiT Reductase Allergy Muscle Pain Verified 10/29/24 13:45 Inhibitor [Qfnnouh-Ose-Fzm Reductase Inhibitor] Home Meds Home Medications Medication Instructions Recorded Confirmed valsartan 40 mg tablet 40 mg PO BID 05/07/24 01/24/25 Previous Rx's Medication Instructions Recorded clopidogrel 75 mg tablet 75 mg PO DAILY #90 tabs 07/11/24 carvedilol 6.25 mg tablet 6.25 mg PO Q12H #180 tabs 10/29/24 Results & Data (ED) Vital Signs Vital Signs - 24 hr 01/24/25 11:36 Temperature 36.5 C Temperature Source Temporal Artery Scan Pulse Rate 70 Respiratory Rate 18 Respiratory Effort / Characteristics Non-Labored Spontaneous Respiratory Depth Normal Respiratory Pattern Regular Blood Pressure 165/96 H Blood Pressure Mean 119 Pulse Oximetry 98 Oxygen Delivery Method Room Air Sepsis Recent Fever Within 48 Hours No Sepsis New/Unexplained Change in Mental Status No Sepsis Action Taken by Nursing No Action Required Home Medications Current Medication List: was personally reviewed by me Laboratory Data Attestation: I reviewed the patient's lab results. 01/24/25 11:52 01/24/25 11:52 Lab Results 01/24/25 Range/Units 11:52 WBC 13.99 H (4.8-10.8) K/ul RBC 4.94 (4.20-5.40) M/uL Hgb 14.9 (12.0-16.0) g/dl Hct 45.6 (37.0-47.0) % MCV 92.3 (80.0-100.0) fL MCH 30.2 (25.0-34.0) pg MCHC 32.7 (32.0-36.0) g/dL RDW Std Deviation 47.8 H (36.4-46.3) fL RDW Coeff of Boubacar 14.1 (11.5-14.5) % Plt Count 341 (130-400) K/uL MPV 9.3 L (9.4-12.4) fL Immature Gran % (Auto) 0.4 % Neut % (Auto) 47.9 % Lymph % (Auto) 45.3 % Dunn % (Auto) 5.2 % Eos % (Auto) 0.8 % Baso % (Auto) 0.4 % Neut # (Auto) 6.69 H (1.40-6.50) K/uL Lymph # (Auto) 6.34 H (1.20-3.40) K/uL Dunn # (Auto) 0.73 H (0.11-0.59) K/uL Eos # (Auto) 0.11 (0.00-0.50) K/uL Baso # (Auto) 0.06 (0.00-0.20) K/uL Immature Gran # (Auto) 0.06 (0.01-0.20) K/uL Smudge Cells Present PT 9.9 (9.0-12.0) Seconds INR 0.9 (0.9-1.1) APTT 25 (21-31) Seconds PTT Ratio 0.9 Sodium 138 (136-145) mmol/L Potassium 3.8 (3.5-5.1) mmol/L Chloride 104 (98-107) mmol/L Carbon Dioxide 26 (21-32) mmol/L Anion Gap 8 (3-11) BUN 16 (6-23) mg/dl Creatinine 0.88 (0.6-1.2) mg/dl Est Cr Clr Drug Dosing 52.5 ml/min eGFR 70.65 BUN/Creatinine Ratio 18.2 (10-20) Glucose 143 H (70-99(Fasting)) mg/dl Calcium 10.0 (8.6-10.3) mg/dl Magnesium 2.3 (1.7-2.4) mg/dl Total Bilirubin 0.5 (0.2-1.0) mg/dl AST 25 (13-39) U/L ALT 22 (7-52) U/L Alkaline Phosphatase 67 (34-104) U/L Total Creatine Kinase 118 (26-192) U/L Troponin I High Sens 86.8 H* (0-14) pg/ml B-Natriuretic Peptide 149 H (0-100) pg/ml Total Protein 8.1 (6.0-8.3) gm/dl Albumin 4.8 (3.4-5.0) gm/dl Globulin 3.3 (2.5-4.0) gm/dl Albumin/Globulin Ratio 1.5 (0.9-2) Lipase 47 (11-82) U/L TSH 2.055 (0.300-4.500) uIu/ml Administered Medications Discontinued Medications Aspirin (Aspirin Chew 324 Mg) 324 mg PO NOW STA Stop: 01/24/25 11:48 Last Admin: 01/24/25 11:57 Dose: 324 mg Documented By: PRAVEEN Fentanyl Citrate (Fentanyl Citrate Pf 100 Mcg/2 Ml Vial) Confirm Administered Dose 100 mcg .ROUTE .STK-MED ONE Stop: 01/24/25 12:03 Last Increment: 01/24/25 13:18 Dose: 25 mcg Documented By: BASILIA Heparin Sodium (Porcine) (Heparin Sod (Porcine) 1000 Unit/Ml) 3,900 units IV NOW ONE Stop: 01/24/25 12:01 Last Admin: 01/24/25 12:09 Dose: Not Given Documented By: PRAVEEN Heparin Sodium (Porcine) (Heparin (Porcine) 1000 Unit/Ml 10 Ml ([facility] Use Only)) Confirm Administered Dose 10,000 units .ROUTE .STK-MED ONE Stop: 01/24/25 12:03 Last Admin: 01/24/25 13:27 Dose: 7,000 units Documented By: BASILIA Heparin Sodium/Dextrose (Heparin Iv Adult Wt-Based Low-Dose W/ Initial Bolus Protocol) 1 each IV NOW STA; Protocol Stop: 01/24/25 11:48 Last Admin: 01/24/25 12:09 Dose: Not Given Documented By: PRAVEEN Heparin Sodium/Sodium Chloride (Heparin In Nss Infusion 1000 Unit/500 Ml (2 U/Ml) Bag) Confirm Administered Dose 3,000 units IV .STK-MED ONE Stop: 01/24/25 12:04 Last Admin: 01/24/25 13:09 Dose: 3,000 units Documented By: NIKKI Iodixanol (Iodixanol (Visipaque) 320 Mg/Ml 100ml) Confirm Administered Dose 1 ml IV .STK-MED ONE Stop: 01/24/25 12:05 Last Admin: 01/24/25 13:10 Dose: Not Given Documented By: BASILIA Ioversol (Optiray 350) Confirm Administered Dose 1 ml .ROUTE .STK-MED ONE Stop: 01/24/25 12:05 Last Admin: 01/24/25 13:19 Dose: 150 ml Documented By: NIKKI Midazolam HCl (Midazolam Hcl 1 Mg/Ml 2ml Vial) Confirm Administered Dose 2 mg .ROUTE .STK-MED ONE Stop: 01/24/25 12:03 Last Increment: 01/24/25 13:19 Dose: 1 mg Documented By: BASILIA Morphine Sulfate (Morphine Sulfate 4 Mg/Ml 1 Ml Carp\\Vial) 4 mg IV NOW STA Stop: 01/24/25 11:48 Last Admin: 01/24/25 11:57 Dose: 4 mg Documented By: PRAVEEN Nicardipine HCl (Nicardipine 2,000 Mcg/20 Ml Syr) Confirm Administered Dose 2,000 mcg .ROUTE .STK-MED ONE Stop: 01/24/25 12:04 Last Admin: 01/24/25 13:10 Dose: 2,000 mcg Documented By: NIKKI Nitroglycerin (Nitroglycerin Sl 0.4 Mg/Tab Tab) 0.4 mg SL NOW STA Stop: 01/24/25 11:52 Last Admin: 01/24/25 11:57 Dose: 0.4 mg Documented By: PRAVEEN Nitroglycerin/Dextrose (Nitroglycerin/D5w 100mcg/Ml 20ml Syr) Confirm Administered Dose 2,000 mcg .ROUTE .STK-MED ONE Stop: 01/24/25 12:04 Last Admin: 01/24/25 12:10 Dose: Not Given Documented By: PRAVEEN Ticagrelor (Ticagrelor 90 Mg Tab) 180 mg PO ONE ONE Stop: 01/24/25 11:48 Last Admin: 01/24/25 11:57 Dose: 180 mg Documented By: PRAVEEN Discharge Plan Visit Data Chief Complaint: Chest Pain Stated Complaint: CHEST PAIN, ABD CRAMPS, BACK PRESSURE, NAUSEA ED Provider: Kamran Choudhary Discharge Problem: ST elevation myocardial infarction (STEMI), Chest pain, Leukocytosis Discharge Problem: ST elevation myocardial infarction (STEMI) Qualifiers: Involved coronary artery: LAD coronary artery Qualified Code(s): I21.02 - ST elevation (STEMI) myocardial infarction involving left anterior descending coronary artery Chest pain Qualifiers: Chest pain type: unspecified Qualified Code(s): R07.9 - Chest pain, unspecified Leukocytosis Qualifiers: Leukocytosis type: unspecified Qualified Code(s): D72.829 - Elevated white blood cell count, unspecified
[2025-01-24] MEDS: TICAGRELOR 90 MG TAB PO ONE (11:57)
[2025-01-24] MEDS: ASPIRIN CHEW 324 MG PO STA (11:57)
[2025-01-24] MEDS: NITROGLYCERIN SL 0.4 MG/TAB TAB SL STA (11:57)
[2025-01-24] MEDS: MoRPHine SULFATE 4 MG/ML 1 ML CARP\\VIAL IV STA (11:57)
[2025-01-24] MEDS: HEPARIN SOD (PORCINE) 1000 UNIT/ML IV ONE ×2 (12:01→12:09)
[2025-01-24 12:07] LABS: iSTAT Creatinine 0.9 mg/dl (0.6-1.3); iSTAT Hemoglobin 16.7 g/dl (12.0-16.0); iSTAT Ionized Calcium 1.16 mmol/l (1.12-1.32); iSTAT Potassium 3.8 mmol/L (3.3-5.0)
[2025-01-24 12:09] LABS: Hematocrit (blood only) 45.6 % (37.0-47.0); Hemoglobin 14.9 g/dl (12.0-16.0); Mean Corpuscular Hemoglobin 30.2 pg (25.0-34.0); Mean Corpuscular Hgb Conc 32.7 g/dL (32.0-36.0); Mean Corpuscular Volume 92.3 fL (80.0-100.0); Mean Platelet Volume 9.3 fL (9.4-12.4); Platelet Count 341 K/uL (130-400); RDW Coefficient of Variation 14.1 % (11.5-14.5); RDW Standard Deviation 47.8 fL (36.4-46.3); Red Blood Count 4.94 M/uL (4.20-5.40); White Blood Count 13.99 K/ul (4.8-10.8)
[2025-01-24] MEDS: Heparin IV Adult Wt-Based Low-Dose w/ INITIAL Bolus Protocol IV STA (12:09)
[2025-01-24] MEDS: HEPARIN (PORCINE) 1000 UNIT/ML 10 ML (CATH LAB USE ONLY) ONE (12:09)
--- NOTE | 2025-01-24 12:09 | Pre Anesthesia Assessment ---
Date of Service January 24, 2025 Pre Sedation Assessment Vital Signs Temp Pulse Pulse Resp BP BP Pulse Ox 01/24/25 12:07 70 01/24/25 11:54 72 18 161/97 H 100 01/24/25 11:36 97.7 F 70 18 165/96 H 98 O2 Del Method 01/24/25 12:07 01/24/25 11:54 Room Air 01/24/25 11:36 Room Air Cardiovascular + regular rate Respiratory + respiratory effort normal Pre-Sedation Airway Assessment Smoking Status: Never smoker Hx Sleep Apnea: No Hx Difficult Intubation: No Short, Thick Neck: No Thyromental Distance: < 3.5 Finger Breadths Oral Cavity: + Dental Abnormalities Mallampati Class: III ASA: ASA3 Procedure Planning Contraindications for Sedation: none Current Medications Reviewed: Yes Notes The planned sedation has been discussed with the patient. Informed Consent was obtained. I have identified the patient, determined the appropriateness of sedation and have assessed the patient immediately prior to the procedure. All medicine(s) and interventions are by my order.
[2025-01-24] MEDS: NITROGLYCERIN/D5W 100MCG/ML 20ML SYR ONE (12:10)
[2025-01-24 12:21] LABS: Albumin Globulin Ratio 1.5 (0.9-2); Albumin Level 4.8 gm/dl (3.4-5.0); BUN Creatinine Ratio 18.2 (10-20); Bilirubin,Total 0.5 mg/dl (0.2-1.0); Creatinine Clr Calc Pharmacy 52.5 ml/min; Globulin 3.3 gm/dl (2.5-4.0); Magnesium 2.3 mg/dl (1.7-2.4); Potassium 3.8 mmol/L (3.5-5.1); Total Protein 8.1 gm/dl (6.0-8.3)
[2025-01-24 12:32] LABS: INR 0.9 (0.9-1.1); Partial Thromboplastin Ratio 0.9; Partial Thromboplastin Time 25 Seconds (21-31); Prothrombin Time 9.9 Seconds (9.0-12.0); Troponin I High Sensitivity 86.8 pg/ml (0-14)
[2025-01-24 12:36] LABS: Thyroid Stimulating Hormone 2.055 uIu/ml (0.300-4.500)
[2025-01-24 12:49] LABS: Basophils # (auto) 0.06 K/uL (0.00-0.20); Basophils % (auto) 0.4 %; Eosinophils # (auto) 0.11 K/uL (0.00-0.50); Eosinophils % (auto) 0.8 %; Immature Granulocytes # (auto) 0.06 K/uL (0.01-0.20); Immature Granulocytes % (auto) 0.4 %; Lymphocytes # (auto) 6.34 K/uL (1.20-3.40); Lymphocytes % (auto) 45.3 %; Monocytes # (auto) 0.73 K/uL (0.11-0.59); Monocytes % (auto) 5.2 %; Neutrophils # (auto) 6.69 K/uL (1.40-6.50); Neutrophils % (auto) 47.9 %; Smudge Cells Present
--- NOTE | 2025-01-24 13:02 | History & Physical Report ---
Date of Service January 24, 2025 Assessment & Plan (1) ST elevation (STEMI) myocardial infarction involving left anterior d escending coronary artery: Plan: STEMI EKG with anterior ST elevations Given aspirin, heparinized, loaded with Brilinta, taken emergently to the cardiac [employer] Initial troponin 86.8. Trend to peak Repeat echo pending S/p lithotripsy of subtotally occluded LAD. Subsequently with good evangelical of flow and patient clinically chest pain-free Admitted to the ICU for ongoing monitoring Continue DAPT, beta-tashi, ARB. If renal function/BP permitting +GDMT with SGLT2/MRA and consider conversion to ARNI if EF on following is signficantly reduced Intolerant of even low-dose statins. Lipid panel pending.? Zetia/PCSK9 as outpatient. Did have extensive discussion with patient at bedside as she prefers naturopathic/homeopathic remedies. Discussed that things like red rice yeast wildly do an effect on cholesterol equivalent to roughly 10 mg of pravastatin are not at a sufficient level to appropriately protect her from cardiovascular disease especially given her multiple heart attacks and LDL levels greater than 180 in the past. Suggested Zetia and possibly PCSK9 evaluation as an outpatient for this. Patient contemplative of this. Patient had her event on Plavix. She has had dyspnea and poor tolerance to ticagrelor in the past. Effient limited by increased risk of bleeding and history of prior CVA. Will need some combination of dual antiplatelet therapy indefinitely. Cardiology assessing, appreciate recommendations Continue carvedilol, uptitrate as tolerated. Was not tolerant of metoprolol previously - Right hand initially with purplish color and vascular congestion, although neurovascularly intact. TR band deflated slightly with normalization of color, no evidence of hematoma/bleeding, full strength and sensation and improved coloration. Continue to monitor No clinical signs of CHF on admitting assessment HTN Continue carvedilol - Continue ARB History of CVA without residual deficit Past history of intermittent left arm numbness and dysarthria. All symptoms resolved in 2022 Platelet therapy continued, patient was intolerant of statins GERD Pepcid as needed EGD 04/2023: Gastritis, normal duodenum DVT prophylaxis: SCDs CODE STATUS: Full code Diet: Heart healthy Disposition: ICU for monitoring post STEMI (2) Ischemic cardiomyopathy: (3) CAD (coronary artery disease): History of Present Illness Primary Care Provider: Jazz Garcia MD 69-year-old female with past medical history of ischemic cardiomyopathy EF 25% 01/2024 improved on repeat 40-45%, With ALBERTO to LAD 01/2024 and ALBERTO to circumflex 2017, TIA, hyperlipidemia with statin intolerance presented for evaluation of chest pain and was activated as a heart alert and taken emergent to the [employer]. Presented to the emergency department with chest pain radiating to her back which began at 9:30 AM, prior history of CAD and stents. EKG in triage with evidence of STEMI, heart alert was paged and patient taken emergently to the [employer]. History and physical performed in ICU following catheterization. Discussed with Dr. Lindsey. Successfully underwent intravascular lithotripsy of subtotally occluded proximal LAD stent. No new stents required placement. Chest pain-free following this. At bedside Jennifer remains chest pain-free. She reports she has had no limiting chest pain chest pressure shortness of breath with exertion or at rest in the preceding weeks to months. She does have a history of HFrEF but has had no clinical problems with heart failure and denies swelling in her legs or orthopnea. She has not needed to take Lasix. She does not use tobacco products and she does not have diabetes. She does have hyperlipidemia suboptimally controlled with naturopathic remedies. She reports she is intolerant to multiple attempts at low-dose statins. She does have a history of CVA without clinical residual deficits. Medical History: Reviewed Medications: Reviewed Surgical History: Reviewed Family history: Reviewed Allergies: Reviewed Social History: Reviewed. No tobacco/ETOH Code Status: Full Allergies Allergy/AdvReac Type Severity Reaction Status Date / Time Bupeolf-SVW-GiQ Reductase Allergy Muscle Pain Verified 10/29/24 13:45 Inhibitor [Yzqmyxx-Kgu-Ixo Reductase Inhibitor] Home Medications Medication Instructions Recorded Confirmed Type valsartan 40 mg tablet 40 mg PO BID 05/07/24 01/24/25 History clopidogrel 75 mg tablet 75 mg PO DAILY #90 tabs 07/11/24 01/24/25 Rx carvedilol 6.25 mg tablet 6.25 mg PO Q12H #180 tabs 10/29/24 01/24/25 Rx Past Med/Surg History Problem List Status post insertion of drug-eluting stent into left anterior descending (LAD) artery (03/2024) Ischemic cardiomyopathy (03/2024) Hypokalemia Hyperlipidemia Acute systolic (congestive) heart failure CAD (coronary artery disease) H. 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) followed with the cancer center for ~6 months, levels never "went above what they should be"; currently no issues History of tubal ligation Medical History ST elevation (STEMI) myocardial infarction involving left anterior descending coronary artery (03/2024) Vitamin D deficiency Osteopenia Orthostatic hypotension Mild mitral regurgitation Hiatal hernia Gastritis Esophagitis Esophageal stenosis Depression with anxiety Arthritis of shoulder region Angioneurotic edema Myocardial Infarction HTN (hypertension) CVA (cerebral vascular accident) (12/2022) Brain TIA H/O Clostridium difficile infection Hypercholesteremia GERD (gastroesophageal reflux disease) Surgical History S/P cholecystectomy History of esophagogastroduodenoscopy (EGD) Hx of bilateral cataract extraction History of heart artery stent History of cardiac cath S/P cholecystectomy S/P colonoscopy Family History Other Diabetes Denies family history of Crohn's disease Colorectal cancer Ulcerative colitis Social History Smoking Status: Never smoker Second Hand Exposure: Yes (hx growing up); Do You Dip or Chew Tobacco: No; Hx Alcohol Use: No Hx Substance Use: No Preferred Language: Rwandan Communication Ability: Effective Pie Chef Required: No Beliefs That Will Affect Care: None Current Living Situation: Spouse Feels Safe at Home: Yes Assistive Devices: Denture - Upper Physical Exam Physical Exam: General: A&Ox3. NAD. Cooperative. HEENT: Atraumatic, normocephalic. Vision and hearing grossly intact Pulm: CTAB A&P. -wheezes, -rales, -rhonchi. Symmetrical chest rise. No increased work of breathing. No respiratory distress. Cardiac: RRR, -mrg. Radial pulses intact and symmetrical. Abdominal: Nontender, nondistended, soft. BS present. Ext: Right hand initially with purplish color and vascular congestion, although neurovascularly intact. TR band deflated slightly with normalization of color, no evidence of hematoma/bleeding, full strength and sensation and improved coloration. Continue to monitor. Lower extremities are without pitting edema Results & Data Results & Data Vital Signs (Past 12 Hours) Vital Signs Temp Pulse Pulse Resp BP BP Pulse Ox 01/24/25 12:07 70 01/24/25 11:54 72 18 161/97 H 100 01/24/25 11:36 36.5 C 70 18 165/96 H 98 O2 Del Method 01/24/25 12:07 01/24/25 11:54 Room Air 01/24/25 11:36 Room Air PG Care Time/CCT Total # of Minutes Spent Total Time Spent with Patient: Total time spent is greater than 50% in coordination of care (as documented) at patient's floor/unit and/or counseling patient: Coding Level of Care Code 93773 INT INP/OBS CARE 3/75MIN Diagnoses ST elevation (STEMI) myocardial infarction involving left anterior descending coronary artery I21.02 Ischemic cardiomyopathy I25.5 CAD (coronary artery disease) I25.10
[2025-01-24] MEDS: IODIXANOL (VISIPAQUE) 320 MG/ML 100ML IV ONE (13:10)
[2025-01-24] MEDS: niCARdipine 2,000 MCG/20 ML SYR ONE (13:10)
[2025-01-24] MEDS: fentaNYL citrate PF 100 MCG/2 ML VIAL ONE (13:18)
[2025-01-24] MEDS: MIDAZOLAM HCL 1 MG/ML 2ML VIAL ONE (13:19)
[2025-01-24] MEDS: OPTIRAY 350 ONE (13:19)
--- NOTE | 2025-01-24 13:31 | Cardiology Consultation ---
Date of Consultation January 24, 2025 Assessment & Plan (1) ST elevation myocardial infarction (STEMI): Presentation consistent with anterior STEMI and concern for late stent thrombosis. Recommend proceeding with emergent cardiac catheterization and likely primary PCI. No apparent contraindications to procedure. Discussed risks, benefits, alternatives of procedure with patient and they are willing to proceed. Given IV heparin and ticagrelor 180 mg in the ED. Further recommendations pending findings of coronary angiography. History of Present Illness History of Present Illness Mrs. Drake is a very pleasant 69-year-old woman here with acute chest pain and ECG concerning for acute AL. Patient seen emergently in the ED after heart alert activated on arrival. Her primary sausage smoker is Dr. Guzman. She has a history of CAD post ALBERTO to circumflex in 2017 (Dr. James) and more recently anterior AL with 2 ALBERTO placed to LAD (2.5 x 22, 2.5 x 34 mm [place]) at [facility] (Dr. Arredondo) 02/2024. Had severe LV dysfunction post AL for which temporarily wore LifeVest. EF up to 40 to 45% with apical akinesis and mid anterior septal hypokinesis. Also with moderate MR. Per prior documentation medication minimalist. Struggled with Brilinta. Stopped aspirin and has been on clopidogrel alone. States she took clopidogrel this morning. This morning around 930 developed recurrent chest pain similar to what she has had with prior AL. On presentation ECG showed sinus rhythm with anterior ST elevation, inferior ST depression. Hemodynamically stable. Ongoing 10/10 chest pain. Other medical problems include prior right frontal CVA in 2022, dyslipidemia with statin intolerance, GERD/gastritis/dysphagia. Allergies Allergy/AdvReac Type Severity Reaction Status Date / Time Kwkiqwi-TTG-VqR Reductase Allergy Muscle Pain Verified 10/29/24 13:45 Inhibitor [Rtrwayd-Xsk-Len Reductase Inhibitor] Home Medications Medication Instructions Recorded Confirmed Type valsartan 40 mg tablet 40 mg PO BID 05/07/24 01/24/25 History clopidogrel 75 mg tablet 75 mg PO DAILY #90 tabs 07/11/24 01/24/25 Rx carvedilol 6.25 mg tablet 6.25 mg PO Q12H #180 tabs 10/29/24 01/24/25 Rx Patient History Medical History ST elevation (STEMI) myocardial infarction involving left anterior descending coronary artery (03/2024) Vitamin D deficiency Osteopenia Orthostatic hypotension Mild mitral regurgitation Hiatal hernia Gastritis Esophagitis Esophageal stenosis Depression with anxiety Arthritis of shoulder region Angioneurotic edema Myocardial Infarction 2016, taken to ER at [facility], was seen by Dr. James HTN (hypertension) pt denies CVA (cerebral vascular accident) (12/2022) 12/2022, while in shower "lt arm had no feeling, I and started feeling strange," slurred speech, double vision>went to hospital the next day, symptoms "were gone," and left eye was drooping; had CT x2, MRI, heart echocardiogram>stayed 12/29/22 until 01/01/23; no residual symptoms Brain TIA 12/2022, while in shower "lt arm had no feeling, I and started feeling strange," slurred speech, double vision>went to hospital the next day, symptoms "were gone," and left eye was drooping; had CT x2, MRI, heart echocardiogram>stayed 12/29/22 until 01/01/23; no residual symptoms H/O Clostridium difficile infection 2013, tx w/abx, dx [facility] Hypercholesteremia pt unsure about his GERD (gastroesophageal reflux disease) hx-"no current issues" Surgical History S/P cholecystectomy History of esophagogastroduodenoscopy (EGD) w/dilation Hx of bilateral cataract extraction History of heart artery stent 01/2017, x1 stent, [facility] History of cardiac cath 01/2017, following AL; f/[place]. James, [facility] [place]/P cholecystectomy S/P colonoscopy Family History Other Diabetes Denies family history of Crohn's disease Colorectal cancer Ulcerative colitis Social History Smoking Status: Never smoker Second Hand Exposure: Yes (hx growing up); Do You Dip or Chew Tobacco: No; Hx Alcohol Use: No Hx Substance Use: No Preferred Language: Faroese Communication Ability: Effective Tax Compliance Representative Required: No Beliefs That Will Affect Care: None Current Living Situation: Spouse Other Information That Helps Us Care for You: No Feels Safe at Home: Yes Safety Concerns: Feels Safe At This Time Assistive Devices: None Review of Systems Review of Systems: All systems reviewed & are unremarkable except as noted in HPI & below Physical Exam Physical Exam: General: Uncomfortable HEENT: Sclerae anicteric Lungs: Clear to auscultation bilaterally, no crackles or wheezes Cardiac: Regular rate and rhythm, no murmurs. Vascular: 2+ radial Abdomen: Soft, nontender Extremities: Well perfused, no peripheral edema Neuro: Nonfocal Psych: Alert orient x3, normal affect and mood Results & Data Vital Signs (Past 12 Hours) Vital Signs Temp Pulse Pulse Resp BP BP Pulse Ox 01/24/25 12:07 70 01/24/25 11:54 72 18 161/97 H 100 01/24/25 11:36 97.7 F 70 18 165/96 H 98 O2 Del Method 01/24/25 12:07 01/24/25 11:54 Room Air 01/24/25 11:36 Room Air PG Care Time/CCT Total # of Minutes Spent Total Time Spent with Patient: Total time spent is greater than 50% in coordination of care (as documented) at patient's floor/unit and/or counseling patient: Coding Level of Care Code 02149 INT INP/OBS CARE 2/55MIN Diagnoses ST elevation myocardial infarction (STEMI) I21.02 Involved coronary artery: LAD coronary artery (1) ST elevation myocardial infarction (STEMI) Involved coronary artery: LAD coronary artery Qualified Code(s): I21.02 - ST elevation (STEMI) myocardial infarction involving left anterior descending coronary artery
[2025-01-24] MEDS ORDERED: ACETAMINOPHEN 325 MG TAB PO PRN (13:32)
[2025-01-24] MEDS ORDERED: ONDANSETRON INJ 2 MG/ML 2 ML VIAL IV PRN (13:32)
--- NOTE | 2025-01-24 13:53 | Post Anesthesia Assessment ---
Date of Service January 24, 2025 Post Sedation Assessment Vital Signs Temp Pulse Pulse Resp BP BP Pulse Ox 01/24/25 12:07 70 01/24/25 11:54 72 18 161/97 H 100 01/24/25 11:36 97.7 F 70 18 165/96 H 98 O2 Del Method 01/24/25 12:07 01/24/25 11:54 Room Air 01/24/25 11:36 Room Air Recovery Score Activity: Moves 4 extremities Respiration: Deep Breath/Cough Circulation: +/-20% PreAnes Value Consciousness: Fully Awake Oxygen Saturation: > 92% On Room Air Discharge Sedation Level of Care: Fast Track Phase II Post Sedation Plan On clinical assessment, the patient appears to have tolerated the sedation without complications. Patient is recovering as anticipated. Patient will continue to be monitored by nursing and may be discharged when sedation discharge criteria are met per below protocol. Upon Completions of procedure up to 15 minutes continue every 5 minute vital signs and the P.A.R. score; then discharge to a Phase I or Fast Track to Phase II per the following guidelines: * Discharge Patient to appropriate Phase II area if PAR is 8 or greater or return to pre- procedure baseline. The post - procedure orders will be as directed. * If PAR score is less than 8 or not return to pre-procedure baseline then patient will follow Phase I monitoring till PAR is reached for Phase II. The Phase I may be done in procedure room or may call to secure a Phase I area. * If naloxone or flumazenil are used for reversal, hold in Phase I for continued monitoring from when last reversal dose was given for a minimum of 60 minutes or longer pending the nurse and/or physician discretion of patient condition before discharge to Phase II. Please call the Sedation Physician to re-evaluate and complete post-note for discharge to Phase II area. Do NOT discharge from procedure sedation or Phase 1 until post- sedation evaluation note is complete by procedure /sedation MD Sedation Discharge Instructions to be given to the patient at discharge to home.
--- NOTE | 2025-01-24 15:57 | Cardiac Catheterization ---
[facility] Data: Project Builder Cardiac Status Clinical evaluation leading to the procedure CAD Presenation: STEMI Anginal Classification: CCS IV Diagnostic Physicians Name: Addison Lindsey MD Closure Device Recommendations: PCI without planned CABG Cardiac Cath Procedure Full Procedure Date January 24, 2025 Pre-Procedure Diagnosis Pre-Procedure Diagnosis: STEMI AUC Score AUC Score: 9 Post-Procedure Diagnosis Post-Procedure Diagnosis: Severe CAD, Successful PCI and Elevated Intracardiac Pressures Procedure(s) Performed Procedure(s) Performed: Coronary Angiography, Left Heart Cath, PTCA, IVUS and Procedure (Intravascular lithotripsy) Fisher Dip Net Addison Lindsey MD Client Leader(s) Felisha Estimated Blood Loss Estimated Blood Loss: 25 Medication(s) Medication(s): Fentanyl, Heparin, Nicardipine, Nitroglycerin and Versed Medication(s): Ticagrelor Summary of Findings Indication: STEMI/Heart Alert. Prior anterior PR 02/2024 treated with 2 [place] drug-eluting stents to LAD. Access: 6 Fr slender right radial artery Catheters: EBU 3.5 guide, diagnostic JR4 Findings: LM -separate ostium LAD -acute 98% proximal LAD in-stent restenosis, remainder of proximal to mid LAD stents widely patent. KATRINA I flow in small distal LAD. Circumflex -large caliber, 30% ostial. Large OM1 proximal stent widely patent, 40% mid segment stenosis just after stent. Remainder of vessel without significant disease. Small mid/distal AV groove circumflex without significant disease. RCA -dominant, small caliber, 50% earlymid stenosis, distal vessel without significant disease. Small PDA without disease. LVEDP -25 -- PCI -- Antithrombotic therapy: Heparin, ticagrelor Procedure: Left main cannulated with EBU 3.5 guide Malt Roaster 50 wire passed across lesion into distal vessel Proximal LAD lesion predilated with 2.5 compliant balloon [facility] IVUS catheter placed to mid LAD. Pullback revealed widely patent stent without significant in-stent restenosis until proximal/ostial portion of stent. Proximal portion of the stent was well apposed, but appeared slightly underexpanded with calcified circumferential plaque outside stent. [place] Blue wire placed into circumflex/OM Repeat IVUS of proximal circumflex revealed minimal plaque at circumflex ostium and confirmed separate ostium of LAD/circumflex Dilated proximal LAD stent further dilated with 3.5 NC Modest stent expansion. Repeat IVUS showed minimal residual IntraStent thrombus. Proximal portion of stent further dilated with 4.0 intravascular (shockwave) lithotripsy balloon (40 pulses IC vasodilators administered for spasm Post procedure KATRINA 3 flow, proximal LAD stent well-expanded with no significant residual in-stent thrombus and no apparent cardiac complications. Arterial Closure: TR band Summary: 1. Anterior STEMI/acute 98% proximal LAD stent thrombosis 2. Multivessel non-culprit coronary artery disease -Widely patent proximal large OM1 stent with 40% stenosis just after stent Small RCA with 50% earlymid disease 3. Elevated intracardiac filling pressure 4. Successful PCI of proximal LAD stent thrombosis with angioplasty using 3.5 NC balloon and 4.0 intravascular lithotripsy. Recommendations: Admit to ICU for continued monitoring Loaded with ticagrelor 180 mg in Project Builder Recommend extended, likely indefinite dual antiplatelet therapy Trend troponins until peak, Check Echo Continue prior beta-tashi, ARB Further discussion regarding lipid-lowering options Consult cardiac Rehab Hemodynamics Rest Ao:: 129/79 Final Ao: 142/77/22 LV: 130/25 Recommendations Recommendations: PCI without planned CABG Specimens Specimens: None Radiation Exposure (mGy) 1426 Contrast (mls) 150 Anesthesia Moderate [id number] Procedural Complication(s) None Disposition ICU I attest to the content of the Intraoperative Record and any orders documented therein. Any exceptions are noted below. [facility] Card Cath Procedure Codes Cardiac Catheterization Procedure 1: Cardiovascular Cath Procedures: 94276 Coronaries and LHC (+/-LV) Therapeutic Services & Ancillary Procedure 1: Cardiovascular Tx and Anc Procedures: 21582 IV Ultrasound (Coronary or Graft) Moderate Sedation Procedure 1: Sedation/Anesthesia: 05755 Mod Sedation by the same physician;Init15 Min Child Age 5 & Up Procedure 2: Sedation/Anesthesia: 18903 Mod Sedation by the same physician; Ea [id number] Minutes Angioplasty Procedure 1: Cardiovascular Angioplasty Procedures: 23061 Perq Trluml Coronry Lithotrp Stenting Procedure 1: Cardiovascular Stent Procedures: 46494 Perc transluminal revascularization of acute sub/total occl, aMI PG Care Time/CCT Total # of Minutes Spent Total Time Spent with Patient: Total time spent is greater than 50% in coordination of care (as documented) at patient's floor/unit and/or counseling patient:
--- NOTE | 2025-01-24 16:11 | Critical Care Consultation ---
Date of Consultation January 24, 2025 Assessment & Plan (1) ST elevation myocardial infarction (STEMI): (2) CAD (coronary artery disease): (3) Hypercholesteremia: (4) GERD (gastroesophageal reflux disease): (5) HTN (hypertension): Plan -- STEMI S/p angioplasty 01/24/2025 Patient had in-stent stenosis Continue with dual antiplatelet therapy --History of hypertension On Coreg 6.25 and valsartan 40 mg on a daily basis at home -- GERD Continue with PPI --Leukocytosis Likely reactive to STEMI Continue to trend --Prophylaxis VTE: None GI: Pantoprazole Lines: Peripheral Diet: Cardiac Plan: Strict ins and outs Trend troponin Continue with dual antiplatelet therapy Currently on Brilinta. Used to be on Plavix at home. Potassium being replaced Patient is concerned that she would not prefer Brilinta. The only option in that case would be prasugrel. Will defer to cardiology Please note the above document was generated using voice recognition software. It may contain grammatical, syntax or spelling errors.Any formal questions or concerns about the content, text or information contained within the body of this dictation should be directly addressed to the provider for clarification. History of Present Illness Attending Physician: Santos Morton MD History of Present Illness 69-year-old female presented to the hospital with complaints of chest pain Past medical history: Coronary artery disease s/p stent February 2024, hypertension, GERD Patient was found to have STEMI and was taken to the Registered Dietetic Technician, sent to the ICU for further management The time of examination patient was saturating 97% on room air Her systolic blood pressure was in the 110s, heart rate in the 70s. She will did not complain of any chest pain. She stated that she is compliant with her Plavix and used to take it on a daily basis Was nauseous when she had the episode but no issues right now No abdominal pain No fever or chills No unusual headache or blurry vision There is a strong family history of heart problems in the family, father at the age of 45 from heart attack Social history: Lifetime non-smoker. 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 Allergies Allergy/AdvReac Type Severity Reaction Status Date / Time Xcqvydq-KTV-XlX Reductase Allergy Muscle Pain Verified 10/29/24 13:45 Inhibitor [Ysgdknr-Pdo-Ckb Reductase Inhibitor] Home Medications Medication Instructions Recorded Confirmed Type valsartan 40 mg tablet 40 mg PO BID 05/07/24 01/24/25 History clopidogrel 75 mg tablet 75 mg PO DAILY #90 tabs 07/11/24 01/24/25 Rx carvedilol 6.25 mg tablet 6.25 mg PO Q12H #180 tabs 10/29/24 01/24/25 Rx Patient History Medical History ST elevation (STEMI) myocardial infarction involving left anterior descending coronary artery (03/2024) Vitamin D deficiency Osteopenia Orthostatic hypotension Mild mitral regurgitation Hiatal hernia Gastritis Esophagitis Esophageal stenosis Depression with anxiety Arthritis of shoulder region Angioneurotic edema Myocardial Infarction 2016, taken to ER at [facility], was seen by Dr. James HTN (hypertension) pt denies CVA (cerebral vascular accident) (12/2022) 12/2022, while in shower "lt arm had no feeling, I and started feeling strange," slurred speech, double vision>went to hospital the next day, symptoms "were gone," and left eye was drooping; had CT x2, MRI, heart echocardiogram>stayed 12/29/22 until 01/01/23; no residual symptoms Brain TIA 12/2022, while in shower "lt arm had no feeling, I and started feeling strange," slurred speech, double vision>went to hospital the next day, symptoms "were gone," and left eye was drooping; had CT x2, MRI, heart echocardiogram>stayed 12/29/22 until 01/01/23; no residual symptoms H/O Clostridium difficile infection 2012, tx w/abx, dx [facility], [place], operated by [facility] Hypercholesteremia pt unsure about his GERD (gastroesophageal reflux disease) hx-"no current issues" Surgical History S/P cholecystectomy History of esophagogastroduodenoscopy (EGD) w/dilation Hx of bilateral cataract extraction History of heart artery stent 01/2017, x1 stent, [facility] History of cardiac cath 01/2017, following [facility]; f/u Dr. James, [facility] [place] S/P cholecystectomy S/P colonoscopy Family History Other Diabetes Denies family history of Crohn's disease Colorectal cancer Ulcerative colitis Social History Smoking Status: Never smoker Second Hand Exposure: Yes (hx growing up); Do You Dip or Chew Tobacco: No; Hx Alcohol Use: No Hx Substance Use: No Preferred Language: Bolivian Communication Ability: Effective Director Payment Required: No Beliefs That Will Affect Care: None Current Living Situation: Spouse Other Information That Helps Us Care for You: No Feels Safe at Home: Yes Safety Concerns: Feels Safe At This Time Assistive Devices: None Review of Systems 2 Review of Systems: All systems reviewed & are unremarkable except as noted in HPI & below Physical Exam 2 Physical Exam: Constitutional: No acute distress HEENT: EOMI, PERRLA Respiratory system: Good air entry bilaterally, no wheeze, no rhonchi, mild crackles right lower lobe CVS: S1-S2 positive, no murmurs or gallops Abdomen: Soft, nontender, nondistended, positive bowel sounds x4 Extremities: +2 pulses bilaterally radialis/ dorsalis pedis, no cyanosis, no edema Neuro: Awake alert oriented x3 Psych: Normal mood and affect G/U: No Merritt Skin: no rashes, warm and dry Lymphatic: no cervical or axillary lymphadenopathy Results & Data Results & Data Vital Signs (Past 12 Hours) Vital Signs Temp Pulse Pulse Resp BP BP Pulse Ox 01/24/25 14:30 78 18 123/67 97 01/24/25 14:15 79 18 105/71 97 01/24/25 14:00 79 16 126/69 98 01/24/25 13:45 82 18 124/72 100 01/24/25 12:07 70 01/24/25 11:54 72 18 161/97 H 100 01/24/25 11:36 36.5 C 70 18 165/96 H 98 O2 Del Method 01/24/25 14:30 Room Air 01/24/25 14:15 Room Air 01/24/25 14:00 Room Air 01/24/25 13:45 Room Air 01/24/25 12:07 01/24/25 11:54 Room Air 01/24/25 11:36 Room Air Laboratory Results 01/24/25 11:52 01/24/25 11:52 Coding Level of Care Code 20376 INT INP/OBS CARE 3/75MIN Diagnoses ST elevation myocardial infarction (STEMI) I21.02 Involved coronary artery: LAD coronary artery CAD (coronary artery disease) I25.10 Hypercholesteremia E78.00 GERD (gastroesophageal reflux disease) K21.9 HTN (hypertension) I10 (1) ST elevation myocardial infarction (STEMI) Involved coronary artery: LAD coronary artery Qualified Code(s): I21.02 - ST elevation (STEMI) myocardial infarction involving left anterior descending coronary artery
[2025-01-24] MEDS: carvediloL 3.125 MG TAB PO SCH (16:39)
[2025-01-24] MEDS: POTASSIUM CHLORIDE CRTAB 20 MEQ TABCR PO STA (16:40)
--- NOTE | 2025-01-24 17:44 | XRay Report ---
EXAM: Radiograph of the Chest 1 View INDICATION: Follow-up TECHNIQUE: Frontal view of the chest. COMPARISON: 08/21/2017 FINDINGS: Lungs and pleural spaces: No consolidation or pulmonary edema. No pleural effusion or pneumothorax. Heart: Shape and configuration within normal limits allowing for technique. Mediastinum: Normal contour. Bones/joints: No fracture, erosion or dislocation. Soft tissues: No abnormality noted. No radiopaque foreign body noted. Upper abdomen: No abnormality noted. IMPRESSION: No abnormality noted. ACT 112: N/A Electronically signed by Rachel Girard 01-24-2025 5:44 PM
[2025-01-24] MEDS: HEPARIN 25000 UNIT/500 ML D5W 25,000 UNITS/500 ML BAG IV SCH (19:05)
[2025-01-24] MEDS: TICAGRELOR 90 MG TAB PO SCH (19:53)
[2025-01-24] MEDS: VALSARTAN 80 MG TAB PO SCH (19:54)
--- NOTE | 2025-01-24 22:27 | XCELERA ---
[id number]
--- NOTE | 2025-01-24 22:58 | Electrocardiogram Report ---
Test Reason : Blood Pressure : */* mmHG Vent. Rate : 75 BPM Atrial Rate : 75 BPM P-R Int : 150 ms QRS Dur : 78 ms QT Int : 400 ms P-R-T Axes : 76 92 67 degrees QTcB Int : 446 ms Normal sinus rhythm Rightward axis Anterior infarct , possibly acute ACUTE PA / STEMI Abnormal ECG When compared with ECG of 29-Dec-2022 12:51, Anterior infarct is now Present ST now depressed in Inferior leads ST elevation now present in Anterior leads Confirmed by Cesar Hope ([id number]) on 01/24/2025 10:57:44 PM Referred By: REFERRED SELF Confirmed By: Cesar Hope
[2025-01-25 03:31] LABS: Hematocrit (blood only) 38.5 % (37.0-47.0); Hemoglobin 13.1 g/dl (12.0-16.0); Mean Corpuscular Hemoglobin 30.8 pg (25.0-34.0); Mean Corpuscular Volume 90.4 fL (80.0-100.0); Mean Platelet Volume 9.3 fL (9.4-12.4); Platelet Count 295 K/uL (130-400); RDW Coefficient of Variation 14.1 % (11.5-14.5); RDW Standard Deviation 46.4 fL (36.4-46.3); Red Blood Count 4.26 M/uL (4.20-5.40)
[2025-01-25 03:48] LABS: BUN Creatinine Ratio 20.5 (10-20); Calcium 8.9 mg/dl (8.6-10.3); Chol HDL Ratio 4.5 (0-5); Creatinine Clr Calc Pharmacy 63.3 ml/min; Magnesium 2.2 mg/dl (1.7-2.4)
[2025-01-25 05:11] LABS: ALC (manual) 8.38 K/uL (1.2-3.4); ANC (manual) 6.03 K/uL (1.4-6.5); Basophils # (manual) 0.15 K/uL (0-0.2); Basophils % (manual) 1 %; Eosinophils # (manual) 0.15 K/uL (0-0.50); Eosinophils % (manual) 1 %; Lymphocytes # (manual) 8.38 K/uL (1.2-3.4); Lymphocytes % (manual) 57 %; Neutrophils # (manual) 6.03 K/uL (1.40-6.50); Neutrophils % (manual) 41 %; Polychromasia 1+
[2025-01-25 07:53] LABS: Estimated Average Glucose 134 mg/dl; Hemoglobin A1C 6.3 % (4.5-5.6)
[2025-01-25] MEDS: ASPIRIN 81 MG ECTAB PO SCH (08:12)
[2025-01-25] MEDS: EZETIMIBE 10 MG TAB PO SCH (08:12)
[2025-01-25] MEDS: PANTOprazole 40 MG TAB PO SCH (08:12)
[2025-01-25 08:15] VITALS: TEMP 97.7
--- NOTE | 2025-01-25 08:47 | Critical Care Progress Note ---
Date of Service January 25, 2025 Assessment & Plan (1) ST elevation myocardial infarction (STEMI): (2) CAD (coronary artery disease): (3) Hypercholesteremia: (4) GERD (gastroesophageal reflux disease): (5) HTN (hypertension): Plan 2D echo 01/24/25: EF 45-50%, severely hypokinetic anterior septal/septal harvey, normal RV size and function, mild MR -- STEMI S/p angioplasty 01/24/2025 Patient had in-stent stenosis Continue with dual antiplatelet therapy --History of hypertension On Coreg 6.25 and valsartan 40 mg on a daily basis at home -- GERD Continue with PPI --Leukocytosis Likely reactive to STEMI Continue to trend --Prophylaxis VTE: None GI: Pantoprazole Lines: Peripheral Diet: Cardiac Plan: Patient unfortunately refused Brilinta overnight. I spoke with cardiology They want to load her with Plavix and continue with Plavix. She would not be a good candidate for prasugrel given the history of CVA Please note the above document was generated using voice recognition software. It may contain grammatical, syntax or spelling errors.Any formal questions or concerns about the content, text or information contained within the body of this dictation should be directly addressed to the provider for clarification. Admission and Anticipated Discharge Date Admission Date: January 24, 2025 Subjective Patient seen and examined at bedside. No acute distress, no adverse events overnight Patient unfortunately refused to take Brilinta as it caused issues with her breathing last time No nausea vomiting No chest pain Fair appetite Review of Systems 2 Review of Systems: All systems reviewed & are unremarkable except as noted in Subjective Physical Exam 2 Physical Exam: Constitutional: No acute distress HEENT: EOMI, PERRLA Respiratory system: Good air entry bilaterally, no wheeze, no rhonchi, minimal crackles right lower lobe CVS: S1-S2 positive, no murmurs or gallops Abdomen: Soft, nontender, nondistended, positive bowel sounds x4 Extremities: +2 pulses bilaterally radialis/ dorsalis pedis, no cyanosis, no edema Neuro: Awake alert oriented x3 Psych: Normal mood and affect G/U: No Merritt Skin: no rashes, warm and dry Lymphatic: no cervical or axillary lymphadenopathy Results & Data Results & Data Vital Signs (Past 12 Hours) Vital Signs Temp Pulse Resp BP Pulse Ox 01/25/25 08:15 36.5 C 01/25/25 07:20 61 01/25/25 06:12 65 14 97 01/25/25 06:03 68 18 97 01/25/25 06:00 100/60 01/25/25 05:54 62 14 98 01/25/25 05:51 60 14 99 01/25/25 05:48 64 17 99 01/25/25 05:15 62 12 98 01/25/25 05:00 102/61 01/25/25 05:00 102/61 01/25/25 04:54 61 10 L 99 01/25/25 04:42 66 15 98 01/25/25 04:27 63 9 L 99 01/25/25 04:12 64 13 99 01/25/25 04:03 65 11 L 99 01/25/25 04:00 101/65 01/25/25 03:54 69 20 98 01/25/25 03:51 71 16 97 01/25/25 03:42 69 11 L 97 01/25/25 03:30 66 17 99 01/25/25 03:27 78 19 87 L 01/25/25 03:00 70 15 99 01/25/25 02:39 36.6 C 01/25/25 02:30 67 13 98 01/25/25 02:27 66 17 98 01/25/25 02:03 78 14 97 01/25/25 02:00 104/49 L 01/25/25 02:00 104/49 L 01/25/25 02:00 104/49 L 01/25/25 01:57 65 17 98 01/25/25 01:42 67 14 99 01/25/25 01:30 65 17 99 01/25/25 01:11 68 12 97 01/25/25 01:02 66 17 98 01/25/25 01:00 111/46 L 01/25/25 01:00 111/46 L 01/25/25 01:00 111/46 L 01/25/25 00:41 73 14 97 01/25/25 00:20 66 15 98 01/25/25 00:11 70 21 97 01/25/25 00:02 73 17 96 01/25/25 00:00 123/64 01/25/25 00:00 123/64 01/25/25 00:00 123/64 01/24/25 23:56 63 14 99 01/24/25 23:47 70 13 98 01/24/25 23:20 63 12 99 01/24/25 23:14 64 15 98 01/24/25 23:02 70 15 97 01/24/25 23:00 106/59 L 01/24/25 23:00 106/59 L 01/24/25 22:44 65 17 98 01/24/25 22:41 66 15 98 01/24/25 22:41 36.6 C 01/24/25 22:32 68 18 98 01/24/25 22:23 65 15 98 01/24/25 22:00 75 16 99 01/24/25 22:00 117/69 01/24/25 22:00 117/69 01/24/25 22:00 117/69 01/24/25 22:00 117/69 01/24/25 22:00 117/69 01/24/25 21:45 65 16 99 01/24/25 21:36 69 15 99 01/24/25 21:21 68 16 97 Laboratory Results 01/25/25 03:02 01/25/25 03:02 Coding Level of Care Code 01927 SUB INP/OBS CARE 2/35MIN Diagnoses ST elevation myocardial infarction (STEMI) I21.02 Involved coronary artery: LAD coronary artery CAD (coronary artery disease) I25.10 Hypercholesteremia E78.00 GERD (gastroesophageal reflux disease) K21.9 HTN (hypertension) I10 (1) ST elevation myocardial infarction (STEMI) Involved coronary artery: LAD coronary artery Qualified Code(s): I21.02 - ST elevation (STEMI) myocardial infarction involving left anterior descending coronary artery
--- NOTE | 2025-01-25 10:54 | Cardiology Progress Note ---
Date of Service January 25, 2025 Assessment & Plan (1) CAD (coronary artery disease): Plan: --Late stent thrombosis of proximal LAD -- post PCI with angioplasty+IVL --Moderate non-culprit disease (patent prox OM1 stent, 40% mid OM1, 50% mid RCA). 2. Ischemic cardiomyopathy - EF 45-50%, apical akinesis. 3. Dyslipidemia -- LDL 168 4. Mild to moderate mitral regurgitation 5. Prior CVA 2022 6. Family history of premature CAD Chest pain free this morning. Troponin has peaked. Hemodynamically and electrically stable overnight. On exam today no signs of heart failure or access site complications. -- Has struggled with dyspnea previously on ticagrelor and had difficulty with cost of medication. Will switch back to clopidogrel and plan to continue on DAPT indefinitely. -- Load with Clopidogrel 600mg today. Then 75mg daily. -- Continue carvedilol 3.125 mg BID and home valsartan. -- Previously intolerant to multiple statins. Will try Zetia on discharge -- She is agreeable to trying Inclisiran as an outpatient --> will ask office to start paperwork Follow-up with me on 02/12. Will talk about cardiac rehab at that time. From a cardiac standpoint OK with discharge today. Admission and Anticipated Discharge Date Admission Date: January 24, 2025 Subjective Feeling well this morning. No recurrent chest pain. Difficulty sleeping overnight due to feeling of shortness of breath that she has had before with brilinta. Telemetry reviewed - brief NSVT yesterday evening. No significant ventricular ectopy overnight. Review of Systems Review of Systems: All systems reviewed & are unremarkable except as noted in HPI & below Physical Exam Physical Exam: General: Comfortable HEENT: Sclerae anicteric Lungs: Clear to auscultation bilaterally, no crackles or wheezes Cardiac: Regular rate and rhythm, no murmurs. Vascular: 2+ right radial, no ecchymosis or hematoma Abdomen: Soft, nontender Extremities: Well perfused, no peripheral edema Neuro: Nonfocal Psych: Alert orient x3, normal affect and mood Results & Data Vital Signs (Past 12 Hours) Vital Signs Temp Pulse Resp BP Pulse Ox 01/25/25 08:15 97.7 F 01/25/25 07:20 61 01/25/25 06:12 65 14 97 01/25/25 06:03 68 18 97 01/25/25 06:00 100/60 01/25/25 05:54 62 14 98 01/25/25 05:51 60 14 99 01/25/25 05:48 64 17 99 01/25/25 05:15 62 12 98 01/25/25 05:00 102/61 01/25/25 05:00 102/61 01/25/25 04:54 61 10 L 99 01/25/25 04:42 66 15 98 01/25/25 04:27 63 9 L 99 01/25/25 04:12 64 13 99 01/25/25 04:03 65 11 L 99 01/25/25 04:00 101/65 01/25/25 03:54 69 20 98 01/25/25 03:51 71 16 97 01/25/25 03:42 69 11 L 97 01/25/25 03:30 66 17 99 01/25/25 03:27 78 19 87 L 01/25/25 03:00 70 15 99 01/25/25 02:39 97.9 F 01/25/25 02:30 67 13 98 01/25/25 02:27 66 17 98 01/25/25 02:03 78 14 97 01/25/25 02:00 104/49 L 01/25/25 02:00 104/49 L 01/25/25 02:00 104/49 L 01/25/25 01:57 65 17 98 01/25/25 01:42 67 14 99 01/25/25 01:30 65 17 99 01/25/25 01:11 68 12 97 01/25/25 01:02 66 17 98 01/25/25 01:00 111/46 L 01/25/25 01:00 111/46 L 01/25/25 01:00 111/46 L 01/25/25 00:41 73 14 97 01/25/25 00:20 66 15 98 01/25/25 00:11 70 21 97 01/25/25 00:02 73 17 96 01/25/25 00:00 123/64 01/25/25 00:00 123/64 01/25/25 00:00 123/64 01/24/25 23:56 63 14 99 01/24/25 23:47 70 13 98 01/24/25 23:20 63 12 99 01/24/25 23:14 64 15 98 01/24/25 23:02 70 15 97 01/24/25 23:00 106/59 L 01/24/25 23:00 106/59 L PG Care Time/CCT Total # of Minutes Spent Total Time Spent with Patient: Total time spent is greater than 50% in coordination of care (as documented) at patient's floor/unit and/or counseling patient: Coding Level of Care Code 65338 SUB INP/OBS CARE 3/50MIN Diagnoses CAD (coronary artery disease) I25.10
[2025-01-25] MEDS: CLOPIDOGREL BISULFATE 300 MG TAB PO STA (11:13)
[2025-01-25 11:21] VITALS: BP 116/66; PULSE 76; RESP 18; O2SAT 99
--- NOTE | 2025-01-25 11:59 | Discharge Summary ---
Date of Service January 25, 2025 Admission HPI Per Admitting Provider 69-year-old female with past medical history of ischemic cardiomyopathy EF 25% 01/2024 improved on repeat 40-45%, With ALBERTO to LAD 01/2024 and ALBERTO to circumflex 2017, TIA, hyperlipidemia with statin intolerance presented for evaluation of chest pain and was activated as a heart alert and taken emergent to the Forming Operator. Presented to the emergency department with chest pain radiating to her back which began at 9:30 AM, prior history of CAD and stents. EKG in triage with evidence of STEMI, heart alert was paged and patient taken emergently to the Forming Operator. History and physical performed in ICU following catheterization. Discussed with Dr. Lindsey. Successfully underwent intravascular lithotripsy of subtotally occluded proximal LAD stent. No new stents required placement. Chest pain-free following this. At bedside Jennifer remains chest pain-free. She reports she has had no limiting chest pain chest pressure shortness of breath with exertion or at rest in the preceding weeks to months. She does have a history of HFrEF but has had no clinical problems with heart failure and denies swelling in her legs or orthopnea. She has not needed to take Lasix. She does not use tobacco products and she does not have diabetes. She does have hyperlipidemia suboptimally controlled with naturopathic remedies. She reports she is intolerant to multiple attempts at low-dose statins. She does have a history of CVA without clinical residual deficits. Medical History: Reviewed Medications: Reviewed Surgical History: Reviewed Family history: Reviewed Allergies: Reviewed Social History: Reviewed. No tobacco/ETOH Code Status: Full Admission Exam (Per Admitting) Constitutional The patient is awake, alert and oriented 3, well developed and well nourished, normocephalic and atraumatic, lying in bed and in no acute distress. HEENT--PERRL, EOMI, mucous membranes and oropharynx mildly dry Neck--supple. No JVD. No bruits. Thyroid normal, trachea midline, no adenopathy. Heart--normal S1 and S2. No murmurs, rubs or gallops. Lungs--clear bilaterally, no respiratory distress, no accessory muscle use. Abdomen--normal bowel sounds and soft. Extremities--no cyanosis or clubbing. No edema. Dermatologic--normal skin turgor, normal color, no abnormal lymph nodes, no rash. Neurologic--cranial nerves II through XII grossly intact. Rheumatologic--normal range of motion. Psychiatric--normal affect. Discharge Data Consultations 01/24/25 11:51 ED Decision to Admit Stat 01/24/25 11:53 Consult Cnc Manufacturing Engineer Routine Procedures Performed Operation Date: 01/24/25 11:45 Actual Procedures p Cineradiography w/Routine Exam - Addison Lindsey MD p Cath, Left with Cors and Vent - Addison Lindsey MD s IVUS Coronary Single Vessel - Addison Lindsey MD s IVUS Coronary each ADDL Vessel - Addison Lindsey MD p POBA SGL Vessel - Addison Lindsey MD Hospital Course (1) ST elevation (STEMI) myocardial infarction involving left anterior descending coronary artery: STEMI EKG with anterior ST elevations -Late stent thrombosis of proximal LAD, now s/p PCI with angioplasty+IVL --Moderate non-culprit disease (patent prox OM1 stent, 40% mid OM1, 50% mid RCA). Stable post cath -Did not tolerate brillinta in the past due to dyspnea -Loaded with Plavix, will continue plavix and ASA indefinably -Also Zetia (didnt like statins), carvedilol, Valsartan -Follow up with cardiology outpatient HTN Continue carvedilol - Continue ARB History of CVA without residual deficit Past history of intermittent left arm numbness and dysarthria. All symptoms resolved in 2022 Platelet therapy continued, patient was intolerant of statins GERD Pepcid as needed EGD 04/2023: Gastritis, normal duodenum DVT prophylaxis: SCDs CODE STATUS: Full code Diet: Heart healthy Disposition: ICU for monitoring post STEMI (2) Ischemic cardiomyopathy: (3) CAD (coronary artery disease): Coding Level of Care Code 73309 INP/OBS DISCH >[address] elevation (STEMI) myocardial infarction involving left anterior descending coronary artery I21.02 Ischemic cardiomyopathy I25.5 CAD (coronary artery disease) I25.10 Time Spent (min) 35
--- NOTE | 2025-01-25 12:58 | Electrocardiogram Report ---
Test Reason : Blood Pressure : */* mmHG Vent. Rate : 69 BPM Atrial Rate : 69 BPM P-R Int : 166 ms QRS Dur : 76 ms QT Int : 436 ms P-R-T Axes : 55 77 98 degrees QTcB Int : 467 ms Normal sinus rhythm Serial changes of evolving Anterior infarct Abnormal ECG When compared with ECG of 24-Jan-2025 11:45, ST less elevated in Anterior leads T wave inversion now evident in Anterior leads Confirmed by Mike Marcial ([id number]) on 01/25/2025 12:57:50 PM Referred By: REFERRED SELF Confirmed By: Mike Marcial
[2025-01-26] MEDS ORDERED: CLOPIDOGREL BISULFATE 75 MG TAB PO SCH (09:00)
== END 2025-01-25 12:35 | disposition home or self-care (01) | DRG 325 ==
LOC: ED 11:24 → 1E 11:53 → SUATTDRO 11:53